=== PATIENT | male | born 1995 | race Caucasian/White ===

== ENCOUNTER 2017-07-11 21:48 | Emergency (ER) | payer OTHER, BC, SELFPAY ==
[2017-07-11 21:50] VITALS: BP 144/78; PULSE 66; RESP 14; TEMP 37.1; O2SAT 97; BMI 21.7
--- NOTE | 2017-07-11 22:40 | NURSING ---
PER [facility] AT [facility] IS A TEST ONLY IFR REQUESTED BY SUPERVISER. TEST NOT NEEDED.
--- NOTE | 2017-07-11 23:14 | RAD_ITS ---
STUDY: X-RAY - LEFT WRIST REASON FOR EXAM: Male, 22 years old. Injury and pain TECHNIQUE: Three view(s) of the LEFT wrist were obtained. COMPARISON: None. FINDINGS: Bones: There are no acute osseous abnormalities. Joints: The visualized joints are unremarkable. Soft tissues: The soft tissues are unremarkable. Foreign body: None RAD/Wrist min 3 Views IMPRESSION: No acute abnormalities are seen in the left wrist. Electronically Signed: Shelby Brown MD at 23:40 EST Tel Direct: [phone], Service support ,
--- NOTE | 2017-07-11 23:16 | ED.DCSUM_ITS ---
- ER Visit Summary Date of Service: 07/11/17 Chief Complaint: Left wrist pain History of Present Illness: The patient is a 22 M presenting with left wrist injury. Patient was at work and smashed his wrist between an engine and machine. This occurred around 11:30 AM. He was able to work the rest of the day. He has been using ice and ibuprofen at home. Complains of persistent pain and swelling. He is right-handed. Physical Examination: Vitals are stable. Patient is afebrile. Alert no acute distress. HEENT exam is unremarkable. Lungs are clear and equal bilaterally. Heart is regular rate and rhythm. Extremities left wrist diffuse tenderness, painful range of motion. Normal pulses and cap refill. Hand and elbow are nontender Skin is warm and dry. No focal neurologic deficit. Remainder of exam is unremarkable. Emergency Department Course and Treatment: Ice pack was applied. X-ray of the left wrist shows no acute process. Velcro wrist splint was applied. Advised to follow-up with [facility]. Advised return to ED for worsening complaints. Disposition: Discharge home Impression: Left wrist contusion This note was generated with [employer] dictation software. It may contain incorrect words, spelling, and punctuation that were not noted in review of the chart prior to signing ED Disposition - Plan for ED Patient: Chief Complaint: Upper Extremity Injury Referrals: NOT,DEFINED [Primary Care Provider] -
--- NOTE | 2017-07-12 00:16 | ED.DEP ---
ED Disposition - Plan for ED Patient: Chief Complaint: Upper Extremity Injury Instructions: ED Contusion Upper Ext Referrals: NOT,DEFINED [Primary Care Provider] - [facility] OF PHYSICIANS] -
[2017-07-12 00:46] VITALS: RESP 18
== END 2017-07-12 00:48 | disposition home or self-care (01) ==
PROVIDERS: Emergency Provider Emergency Medicine
DX: S60.212A Contusion of left wrist, initial encounter (principal); W23.0XXA Caught, crushed, jammed, or pinched between moving objects, initial encounter; Y93.9 Activity, unspecified; Y92.9 Unspecified place or not applicable; Y99.0 Civilian activity done for income or pay
CPT/HCPCS: 73110; 99284

== ENCOUNTER 2017-07-18 08:38 | Emergency (ER) | payer OTHER, SELFPAY ==
[2017-07-18 08:38] VITALS: BP 155/72; PULSE 61; RESP 16; TEMP 36.3; O2SAT 99; BMI 20.7
--- NOTE | 2017-07-18 08:50 | RAD_ITS ---
STUDY: X-RAY - LEFT WRIST REASON FOR EXAM: Male, 22 years old. Left wrist pain following injury. TECHNIQUE: 3 view(s) of the wrist were obtained. COMPARISON: None. FINDINGS: Normal visualized distal radius and ulna. Normal radiocarpal articulation. Normal distal radioulnar articulation. Normal carpal bones. Normal carpal articulations. Normal carpometacarpal articulation of the thumb. Normal second through fifth carpometacarpal articulations. Normal visualized metacarpal bones. The soft tissue structures are unremarkable. RAD/Wrist min 3 Views IMPRESSION: Normal x-ray examination of the wrist. Electronically Signed: Trent Alvarado MD at 9:11 EST Tel [phone], Service support ,
--- NOTE | 2017-07-18 08:51 | ED.VISSUMM ---
- ER Visit Summary Date of Service: 07/18/17 Chief Complaint: Left wrist pain History of Present Illness: The patient is a 22 M presenting with left wrist pain. Patient injured himself at work on July 12. He had a crush injury to his left wrist. He states the swelling has improved. He continues to have persistent pain. He did not follow-up with [facility] and states he was unaware that he needed to do this. He has been taking ibuprofen at home. Denies other complaints. Physical Examination: Vitals are stable. Patient is afebrile. Alert no acute distress. HEENT exam is unremarkable. Lungs are clear and equal bilaterally. Heart is regular rate and rhythm. Extremities tenderness of volar left wrist. No swelling or deformity. No warmth or erythema. Active full range of motion. Normal pulses. Skin is warm and dry. No focal neurologic deficit. Remainder of exam is unremarkable. Emergency Department Course and Treatment: Ice pack was applied. Xray of left wrist shows no acute process. Patient is advised to continue wearing his Velcro wrist splint. He is advised to follow-up with [facility] today. He is given Toradol IM. Advised to continue ibuprofen at home. Advised return ED if worsening complaints. Disposition: Discharged home Impression: Left wrist contusion This note was generated with [employer] dictation software. It may contain incorrect words, spelling, and punctuation that were not noted in review of the chart prior to signing ED Disposition - Plan for ED Patient: Chief Complaint: Upper Extremity Injury Referrals: Care Physician,No Primary [Primary Care Provider] -
--- NOTE | 2017-07-18 09:22 | ED.DEP ---
ED Disposition - Plan for ED Patient: Chief Complaint: Upper Extremity Injury Instructions: ED Contusion Upper Ext Referrals: Care Physician,No Primary [Primary Care Provider] - [facility] [GROUP OF PHYSICIANS] -
[2017-07-18] MEDS: Ketorolac 60 MG/2 ML Vial IM (09:26)
== END 2017-07-18 09:48 | disposition home or self-care (01) ==
LOC: ED 09:12
PROVIDERS: Emergency Provider Emergency Medicine
DX: S60.212A Contusion of left wrist, initial encounter (principal); X58.XXXA Exposure to other specified factors, initial encounter; Y93.9 Activity, unspecified; Y92.9 Unspecified place or not applicable; Y99.0 Civilian activity done for income or pay; Z72.0 Tobacco use
CPT/HCPCS: 73110; 96372; 99282

== ENCOUNTER 2017-09-04 04:12 | Emergency (ER) | payer SELFPAY ==
[2017-09-04 04:13] VITALS: BP 140/72; PULSE 48; RESP 17; TEMP 36.4; O2SAT 100; BMI 22.2
--- NOTE | 2017-09-04 04:56 | ED.DCSUM_ITS ---
- ER Visit Summary Date of Service: 09/04/17 Chief Complaint: Right ear pain History of Present Illness: The patient is a 22 M past medical history. Since Tuesday he has had right ear pain. Denies trauma. Denies swimming. No fever. No sore throat. No other complaints. Physical Examination: Well-appearing young male. Vital signs are stable afebrile. Left ear shows wax. Right the proximal canal appears to have inflammation consistent with an abscess. Neck nontender no lymphadenopathy. Posterior pharynx normal. Lungs clear to auscultation bilaterally. Heart regular rhythm no murmur. Abdomen soft nontender. Moving all 4 extremities. Neurovascularly intact. Neurologic exam normal. Test Results: None Emergency Department Course and Treatment: Let applied to the ear canal abscess. I indeed with a scalpel blade. 1-2 cc of pus and blood from the incision. Packed with about 1-2 inches of quarter inch gauze. Patient tolerated procedure well. He was instructed on wound care. Return if worse. Follow-up with ENT if not resolving. Treatment Plan: I&D of ear canal abscess. Placed on Keflex 500 4 times daily for 10 days. Follow-up with ENT as needed. Disposition: discharge Impression: Right ear canal abscess Incision and drainage by ER This note was generated with [employer] dictation software. It may contain incorrect words, spelling, and punctuation that were not noted in review of the chart prior to signing ED Disposition - Plan for ED Patient: Chief Complaint: Ear Problem Referrals: Care Physician,No Primary [Primary Care Provider] -
[2017-09-04] MEDS: Lidocaine/Epi/Tetracaine 50 ML 1 APPLIC TOPICAL (05:09)
--- NOTE | 2017-09-04 07:10 | ED.DEP ---
ED Disposition - Plan for ED Patient: Disposition: Home or Assisted Living Chief Complaint: Ear Problem Instructions: ED Abscess IandD Prescriptions: Cephalexin [Keflex] 500 mg PO Q6 #30 cap Referrals: Gabriel Monte MD [STAFF PHYSICIAN] - 3-5 Days if not improving Additional Instructions: Tylenol and Motrin for pain. Warm compresses to right ear to help the abscess drain and warm shower. Next Pull the packing material in 3-5 days but may fall out before that. Keflex antibiotic 1 pill 4 times a day till gone. Call follow-up with Dr. Monte the ureters and throat doctor if this is not improving.
[2017-09-04 07:22] VITALS: BP 128/77; PULSE 51; RESP 16; O2SAT 99
[2017-09-04] MEDS: Cephalexin 250 MG Capsule 500 MG PO (07:22)
== END 2017-09-04 07:29 | disposition home or self-care (01) ==
PROVIDERS: Emergency Provider Emergency Medicine
DX: H66.41 Suppurative otitis media, unspecified, right ear (principal)
CPT/HCPCS: 69000; 99283

== ENCOUNTER 2017-12-02 22:08 | Emergency (ER) | payer SELFPAY ==
[2017-12-02 22:09] VITALS: BP 118/90; PULSE 79; RESP 18; TEMP 37.1; O2SAT 98; BMI 20.6
--- NOTE | 2017-12-02 22:13 | RAD_ITS ---
STUDY: X-RAY - LEFT HAND REASON FOR EXAM: Male, 22 years old. Trauma TECHNIQUE: 3 view(s) of the hand. COMPARISON: None. FINDINGS: Normal radiocarpal articulation. Normal distal radioulnar joint. Normal visualized carpal bones. Normal carpal articulations Normal carpometacarpal articulation of the thumb. Normal second through fifth carpometacarpal joints. Normal metacarpi. Normal metacarpophalangeal joint of the thumb. Normal interphalangeal joint of the thumb. Normal proximal and distal phalanges of the thumb. Normal metacarpophalangeal joints of the second through fifth fingers. Normal proximal and distal interphalangeal joints of the second through fifth fingers. Normal phalanges of the second through fifth fingers. The soft tissue structures are unremarkable. RAD/Hand Min 3 Views IMPRESSION: Normal x-ray examination of the hand. Electronically Signed: True Leggett MD at 22:57 EDT , Service support ,
--- NOTE | 2017-12-02 22:44 | ED.VISSUMM ---
- ER Visit Summary Date of Service: 12/02/17 Chief Complaint: Left hand injury History of Present Illness: The patient is a 22 M [id number]. Patient was getting out of a tree earlier today for a friend. He cut his hand caught between the following limb and the bucket because he was up in the air. Came in to have it evaluated. No prior history of surgery the left hand. He denies any other injuries. Physical Examination: Well-appearing male no acute distress. Vital signs are stable afebrile. H EENT exam unremarkable. Lungs clear to auscultation. Heart regular rate and rhythm. Chest nontender. Abdomen soft nontender. Extremities moving all 4 neurovascularly intact. The dorsum of the left hand about the wrist and distal forearm has an abrasion and contusion. There is mild swelling. No need for any surgical repair. His left hand is neurovascular intact with full flexion-extension.. Normal cap refill and tight sensation. No gross bony deformity. He has full flexion-extension ulnar radial deviation of the wrist. There is no deformity of the forearm. Elbow and shoulder are unremarkable. He is a strong radial pulse. There are no foreign bodies noted. Test Results: X-ray of the left hand was obtained and wrist. 3 views shows no acute abnormality. No fracture no dislocation. I went over the films with the patient. Emergency Department Course and Treatment: Clean and dress the wound. Motrin for pain. Treatment Plan: Ice and elevate. Motrin for pain and inflammation. Wound care. Follow-up if not improving in 1 week for reevaluation. Disposition: Discharge Impression: Acute left wrist and hand abrasion and contusion This note was generated with [employer] dictation software. It may contain incorrect words, spelling, and punctuation that were not noted in review of the chart prior to signing ED Disposition - Plan for ED Patient: Chief Complaint: Upper Extremity Injury Referrals: Care Physician,No Primary [Primary Care Provider] -
--- NOTE | 2017-12-02 22:47 | ED.DCSUM_ITS ---
- ER Visit Summary Date of Service: 12/02/17 Chief Complaint: Left hand injury History of Present Illness: The patient is a 22 M [id number]. Patient was getting out of a tree earlier today for a friend. He cut his hand caught between the following limb and the bucket because he was up in the air. Came in to have it evaluated. No prior history of surgery the left hand. He denies any other injuries. Physical Examination: Well-appearing male no acute distress. Vital signs are stable afebrile. H EENT exam unremarkable. Lungs clear to auscultation. Heart regular rate and rhythm. Chest nontender. Abdomen soft nontender. Extremities moving all 4 neurovascularly intact. The dorsum of the left hand about the wrist and distal forearm has an abrasion and contusion. There is mild swelling. No need for any surgical repair. His left hand is neurovascular intact with full flexion-extension.. Normal cap refill and tight sensation. No gross bony deformity. He has full flexion-extension ulnar radial deviation of the wrist. There is no deformity of the forearm. Elbow and shoulder are unremarkable. He is a strong radial pulse. There are no foreign bodies noted. Test Results: X-ray of the left hand was obtained and wrist. 3 views shows no acute abnormality. No fracture no dislocation. I went over the films with the patient. Emergency Department Course and Treatment: Clean and dress the wound. Motrin for pain. Treatment Plan: Ice and elevate. Motrin for pain and inflammation. Wound care. Follow-up if not improving in 1 week for reevaluation. Disposition: Discharge Impression: Acute left wrist and hand abrasion and contusion This note was generated with [employer] dictation software. It may contain incorrect words, spelling, and punctuation that were not noted in review of the chart prior to signing ED Disposition - Plan for ED Patient: Chief Complaint: Upper Extremity Injury Referrals: Care Physician,No Primary [Primary Care Provider] -
--- NOTE | 2017-12-02 22:47 | ED.DEP ---
ED Disposition - Plan for ED Patient: Disposition: Home or Assisted Living Chief Complaint: Upper Extremity Injury Instructions: ED Contusion Upper Ext Referrals: Ramo Ochoa MD [STAFF PHYSICIAN] - 10-14 Days if not better Additional Instructions: Importance clean. Apply antibiotic ointment daily. Ice and elevate. Motrin for pain and swelling. If not improving 1-2 weeks need to be reevaluated but tonight on your x-rays there are no signs of any broken bones or dislocations. This should progressively improve.
[2017-12-02 22:56] VITALS: RESP 16
--- NOTE | 2017-12-02 22:57 | ED.RN ---
REVIEWED D/C INSTRUCTIONS, FOLLOW UP CARE, AND S/S THAT WOULD WARRANT A RETURN TO THE ED WITH PT. PT VERBALIZED AN UNDERSTANDING AND DENIES FURTHER QUESTIONS FOR THIS RN. PT SKIN P/W/D, RESP EVEN AND UNLABORED, PT A&O X 3, NO DISTRESS NOTED. PT AMBULATED OUT OF ED, GAIT STEADY.
== END 2017-12-02 22:58 | disposition home or self-care (01) ==
PROVIDERS: Emergency Provider Emergency Medicine
DX: S60.812A Abrasion of left wrist, initial encounter (principal); S60.512A Abrasion of left hand, initial encounter; S60.212A Contusion of left wrist, initial encounter; S60.222A Contusion of left hand, initial encounter; W23.0XXA Caught, crushed, jammed, or pinched between moving objects, initial encounter; Y93.9 Activity, unspecified; Y92.9 Unspecified place or not applicable
CPT/HCPCS: 73130; 99282

== ENCOUNTER 2017-12-04 10:44 | Emergency (ER) | payer SELFPAY ==
[2017-12-04 10:44] VITALS: BP 126/71; PULSE 74; RESP 16; TEMP 36.1; O2SAT 98; BMI 20.3
--- NOTE | 2017-12-04 10:57 | ED.DCSUM_ITS ---
- ER Visit Summary Date of Service: 12/04/17 Chief Complaint: Poison gina History of Present Illness: The patient is a 22 M who was cutting down a tree 3 days ago and now has a rash consistent with poison gina. He states he has had this before. Physical Examination: Patient has a rash on his torso arms and face consistent with rhus dermatitis Emergency Department Course and Treatment: Patient will be started on prednisone tapering dose over 12 days. Impression: 1. Rhus dermatitis This note was generated with [employer] dictation software. It may contain incorrect words, spelling, and punctuation that were not noted in review of the chart prior to signing ED Disposition - Plan for ED Patient: Disposition: Home or Assisted Living Chief Complaint: Rash Instructions: ED Dermatitis Poison Gina Prescriptions: Prednisone [Deltasone] 60 mg PO DAILY #24 tab Referrals: Ulises Briones III, MD [STAFF PHYSICIAN] - As Needed
== END 2017-12-04 11:08 | disposition home or self-care (01) ==
LOC: ED 11:04
PROVIDERS: Emergency Provider Emergency Medicine
DX: L23.7 Allergic contact dermatitis due to plants, except food (principal)
CPT/HCPCS: 99282

== ENCOUNTER 2021-02-08 21:55 | Emergency (ER) | payer BC, SELFPAY ==
[2021-02-08 21:56] VITALS: BP 131/76; PULSE 77; RESP 18; TEMP 36.2; O2SAT 99; BMI 20.6
[2021-02-08] MEDS: Diphth,Pertuss(Acell),Tet Vac 0.5 ML Vial IM (22:47)
--- NOTE | 2021-02-08 22:50 | EX.ED.UPPERE ---
HPI History of Present Illness Chief Complaint: Laceration Informant: patient Narrative Narrative: 26-year-old male was using a chain saw to cut a tree down today when he sustained a laceration to the medial aspect of the proximal left forearm. Unknown last tetanus. States he washed it off with a dressing on continue to work. When he got his second job today his boss advised him to please go get this looked at. Tetanus Immunization: Unknown PFSH PFSH no medical history Home Medications prednisone 60 mg PO DAILY #24 tab 12/04/17 [Rx Last Taken Unknown] Allergy/AdvReac Type Severity Reaction Status Date / Time No Known Allergies Allergy Verified 12/04/17 10:50 no surgical history Social History (Updated 02/08/21 @ 22:[address] Carlitos Caruso, DO) Smoking Status: Never smoker substance use type: does not use ROS ROS ED Constitutional Constitutional ED: Denies chills or weight loss Eyes Eyes: Denies change in vision or diplopia ENT ENT ED: Denies ear pain, rhinorrhea or sore throat Cardiovascular Cardiovascular: Denies chest pain, orthopnea, palpitations or racing heartbeat Respiratory/Chest Respiratory/Chest: Denies cough, dyspnea or orthopnea Gastrointestinal Gastrointestinal: Denies abdominal pain, diarrhea, nausea or vomiting Genitourinary Genitourinary ED: Denies dysuria, hematuria or urinary frequency Musculoskeletal Musculoskeletal: Denies arthralgias or myalgias Integumentary Reports other Details: See HPI ; Denies abscess or rash Neurologic Neurologic: Denies headache(s) or weakness Psychiatric Psychiatric: Denies anxiety, depression, suicidal ideation or suicidal thoughts Endocrine Endocrinology: Denies polydipsia, polyphagia or polyuria Allergic/Immunologic Allergic/Immunologic ED: Denies mouth swelling, tongue swelling or urticaria EXAM Physical Exam Const Vital Signs: 02/08/21 21:56 Temperature 97.2 F L Temperature Source Temporal Pulse Rate 77 Respiratory Rate 18 Blood Pressure 131/76 H Blood Pressure Mean 94 Pulse Ox 99 Positive well nourished and well developed General Appearance ED: well developed HEENT Reports normocephalic, head/scalp atraumatic and moist mucous membranes Eyes PERRL and EOMs intact bilaterally Neck no lymphadenopathy, supple and no JVD Resp normal respiratory effort and clear to auscultation bilaterally Cardio regular rate, regular rhythm and no murmurs GI normal to inspection, nondistended, normoactive bowel sounds and non-tender Palpation: soft Back/Spine no CVA tenderness and normal ROM Extremity full ROM General Extremety ED: Negative for edema General Extremity: Negative for edema Neuro oriented x3 and CN's II-XII intact bilaterally Sensorium / Orientation: alert Motor Exam: strength 5/5 throughout Psych mental status grossly normal Mood & Affect: Negative for depressed or tearful Skin no rashes or lesions noted and no wounds Skin Narrative: Over the medial aspect of the proximal left forearm is a 3 cm gaping laceration. Just distal to this are about 5 superficial linear abrasions. Wound is fairly clean. Neurovascular intact distal MDM MDM MDM Narrative Medical decision making narrative: The wound was locally anesthetized using 1% lidocaine washed with Shur-Clens and explored. Wound edges were revised. Wound was closed using 5 simple interrupted 3-0 Ethilon sutures. Tetanus was updated with Adacel. Wound was dressed wound care discussed with patient return if worsening or concerns Discharge Plan Triage Chief Complaint: Laceration ED Provider: Carlitos Caruso Dx/Rx/DC Orders Clinical Impression: Laceration of left forearm Instructions: ED Laceration: All Closures Prescriptions: No Action prednisone 20 MG tablet 60 mg PO DAILY Qty: 24 RF: 0 Primary Care Provider: Care Physician,No Primary Referrals: Care Physician,No Primary [Primary Care Provider] - [facility] [NON-STAFF] - 10 Day for suture removal Disposition Disposition: Home, Self Care
[2021-02-08] MEDS: Lidocaine 1% (20 ml mdv) 20 ML Vial INFILT (22:51)
== END 2021-02-08 23:18 | disposition home or self-care (01) ==
LOC: ED 23:08
PROVIDERS: Emergency Provider Emergency Medicine
DX: S51.812A Laceration without foreign body of left forearm, initial encounter (principal); W29.3XXA Contact with powered garden and outdoor hand tools and machinery, initial encounter; Y93.9 Activity, unspecified; Y92.9 Unspecified place or not applicable
CPT/HCPCS: 12002; 90715; 99285

== ENCOUNTER 2022-08-04 14:29 | Emergency (ER) | payer BC, SELFPAY ==
[2022-08-04 14:30] VITALS: BP 125/83; PULSE 57; RESP 16; TEMP 36.1; O2SAT 100; BMI 21.5
[2022-08-04 18:00] VITALS: BP 128/73; PULSE 48; RESP 16; O2SAT 99
[2022-08-04 18:01] VITALS: BP 117/63; BP 124/72; BP 126/77; PULSE 52; PULSE 59; PULSE 62
--- NOTE | 2022-08-04 18:05 | NURSING ---
NO OLD EKGS
[2022-08-04 18:14] LABS: Absolute Lymphocyte Count 1.82 X10^3/uL (0.83-4.51); Absolute Neutrophil Count 3.8 X10^3/uL (2.0-7.7); Basophil# 0.03 X10^3/uL; Basophil% 0.5 % (0-1); Eosinophil# 0.05 X10^3/uL; Eosinophils% 0.8 % (0-5); Hematocrit 46.5 % (40-54); Hemoglobin 15.3 g/dL (13.0-16.5); Lymphocyte # 1.82 X10^3/ul (0.83-4.51); Lymphocyte % 29.8 % (19-41); Mean Corp Hgb Conc 32.9 g/dL (32-36); Mean Corpuscular Hgb 30.4 pg (27.0-32.0); Mean Corpuscular Volume 92.4 fL (80-94); Monocyte# 0.44 X10^3/uL; Monocyte% 7.2 % (0-10); NRBC Flagged by Analyzer 0 % (0-5); Neutrophil # 3.75 X10^3/uL (2.7-7.7); Neutrophil % 61.5 % (47-70); Platelet Count 310 K/mm3 (150-450); RBC Distribution Width CV 12.3 % (11.6-14.6); RBC Distribution Width SD 41.6 fl (35.1-43.9); Red Blood Count 5.03 M/mm3 (4.6-6.2); White Blood Count 6.1 K/mm3 (4.4-11.0)
--- NOTE | 2022-08-04 18:18 | CT_ITS ---
STUDY: CT BRAIN WITHOUT CONTRAST REASON FOR EXAM: Male, 27 years old. Headache RADIATION DOSAGE (If Supplied By Facility): CTDIvol = ( 44.99 ) mGy, DLP = ( 796.11 ) mGycm TECHNIQUE: Transaxial CT imaging of the brain was performed without administration of intravenous contrast material. Individualized dose optimization techniques were used for this CT. COMPARISON: No relevant priors. FINDINGS: Normal soft tissue structures. Normal calvarium. Normal size ventricles and extra-axial spaces for the patient''s age. Normal white matter tracts of the cerebral hemispheres. Normal basal ganglia and thalami. Normal brainstem. Normal cerebellum. There is no intracranial hemorrhage. There are no findings of an acute ischemic infarction. Normal visualized paranasal sinuses. CT/Brain/Head without Contrast IMPRESSION: Normal unenhanced CT scan of the brain. Electronically Signed: True Leggett MD at 18:30 EDT ,
--- NOTE | 2022-08-04 18:25 | RAD_ITS ---
STUDY: X-RAY CHEST REASON FOR EXAM: Male, 27 years old. Cough TECHNIQUE: PA and lateral views of the chest. COMPARISON: None. FINDINGS: The lungs are clear and expanded. There is no demonstrated pleural abnormality. Normal size heart. Normal mediastinum and danial. Normal visualized pulmonary arteries. Normal visualized aortic arch and descending thoracic aorta. Normal visualized thoracic spine. Normal visualized ribs, clavicles, and shoulders. There is no demonstrated abnormality of the visualized soft tissue structures of the upper abdomen. RAD/Chest PA and Lateral IMPRESSION: Normal x-ray examination of the chest. Electronically Signed: True Leggett MD at 18:49 EDT ,
[2022-08-04 18:31] LABS: D-Dimer Quantitative (DVT/PE) < 0.27 FEU/ug/m (0.27-0.49)
--- NOTE | 2022-08-04 18:32 | EX.ED.DYSGE1 ---
HPI History of Present Illness Chief Complaint: Dizziness Informant: patient Onset/Context/Timing Onset: Yesterday Context: Gradual Onset Timing: Intermittent Quality: Lightheaded Location: Generalized Worsened by: Nothing Relieved by: Nothing Narrative Narrative: Presents with headache, dizziness, and near syncopal episode that occurred today. Patient states she started getting a headache yesterday. Patient states today when he was getting ready for work he felt dizzy. Patient states that while he was at work today he felt like he was going to pass out. Patient states his vision went black but he did not lose consciousness. Patient states he was able to sit down. Patient states he felt lightheaded prior to this. Patient states it has been waxing and waning. Patient states his headache is over the frontal area. Patient describes it as sharp. Patient states nothing makes his symptoms better nothing makes them worse. PFSH [facility] Medical History Heart block Irregular heart beat Home Medications NK 02/08/21 [History Last Taken Unknown] Allergy/AdvReac Type Severity Reaction Status Date / Time No Known Allergies Allergy Verified 08/04/22 17:25 Social History Smoking Status: Never smoker substance use type: does not use ROS ROS ED Constitutional Constitutional ED: Denies chills or fever(s) Eyes Eyes: Denies blurry vision or change in vision ENT ENT ED: Denies rhinorrhea or sore throat Cardiovascular Cardiovascular: Denies chest pain or palpitations Respiratory/Chest Respiratory/Chest: Reports cough; Denies dyspnea Gastrointestinal Gastrointestinal: Denies nausea or vomiting Genitourinary Genitourinary ED: Denies dysuria or hematuria Musculoskeletal Musculoskeletal: Denies back pain or neck pain Integumentary Denies abscess or rash Neurologic Neurologic: Reports headache(s); Denies weakness Allergic/Immunologic Allergic/Immunologic ED: Denies mouth swelling or urticaria EXAM Physical Exam Const Vital Signs: 08/04/22 14:30 08/04/22 16:30 08/04/22 18:00 Temperature 97 F L Temperature Source Temporal Pulse Rate 57 L 48 L Pulse Rate [Lying] Pulse Rate [Sitting (for 1 minute prior to obtaining)] Pulse Rate [Standing (for 1 minute prior to obtaining)] Respiratory Rate 16 16 Respiratory Effort Normal Non-Labored Respiratory Pattern Normal Blood Pressure 125/83 H 128/73 H Blood Pressure [Lying] Blood Pressure [Sitting (for 1 minute prior to obtaining)] Blood Pressure [Standing (for 1 minute prior to obtaining)] Blood Pressure Mean 97 91 Blood Pressure Mean [Lying] Blood Pressure Mean [Sitting (for 1 minute prior to obtaining)] Blood Pressure Mean [Standing (for 1 minute prior to obtaining)] Pulse Ox 100 99 Oxygen Delivery Method Room Air Room Air 08/04/22 18:01 Temperature Temperature Source Pulse Rate Pulse Rate [Lying] 59 L Pulse Rate [Sitting (for 1 minute prior to obtaining)] 52 L Pulse Rate [Standing (for 1 minute prior to obtaining)] 62 Respiratory Rate Respiratory Effort Respiratory Pattern Blood Pressure Blood Pressure [Lying] 117/63 Blood Pressure [Sitting (for 1 minute prior to obtaining)] 124/72 H Blood Pressure [Standing (for 1 minute prior to obtaining)] 126/77 H Blood Pressure Mean Blood Pressure Mean [Lying] 81 Blood Pressure Mean [Sitting (for 1 minute prior to obtaining)] 89 Blood Pressure Mean [Standing (for 1 minute prior to obtaining)] 93 Pulse Ox Oxygen Delivery Method Positive well nourished and well developed General Appearance ED: well developed and NAD HEENT Reports moist mucous membranes Neck supple and no JVD Resp normal respiratory effort and clear to auscultation bilaterally Cardio regular rate, regular rhythm and no murmurs GI normal to inspection, nondistended, normoactive bowel sounds and non-tender Palpation: soft Extremity normal to inspection General Extremety ED: Negative for edema or tenderness General Extremity: Negative for edema Neuro oriented x3, CN's II-XII intact bilaterally and no sensory deficits noted Sensorium / Orientation: alert Motor Exam: strength 5/5 throughout Psych mental status grossly normal Skin no rashes or lesions noted MDM MDM MDM Narrative Medical decision making narrative: Differential diagnosis includes anemia, vasovagal syncope, cardiac dysrhythmia, cardiac ischemia, pulmonary embolism, viral illness, and electrolyte abnormality. EKG will be obtained to assess for cardiac dysrhythmia and cardiac ischemia. CBC will be obtained to assess for leukocytosis and anemia. Chest x-ray will be obtained to assess for pneumonia and pneumothorax. Basic metabolic profile will be obtained to assess for electrolyte abnormality and renal function. D-dimer will be obtained to assess for pulmonary embolism. High-sensitivity troponin will be obtained to assess for cardiac ischemia. 2-hour repeat high-sensitivity troponin will be obtained to assess for ongoing cardiac ischemia. CT scan of the brain will be obtained to assess for stroke and intracranial bleeding. Lab Data Attestation: I reviewed the patient's lab results. Lab results narrative: BC was reviewed and was within normal limits. Basic metabolic profile was reviewed and was within normal limits. D-dimer was reviewed and was less than 0.27. High-sensitivity troponin was reviewed and was less than 4. 2-hour repeat high-sensitivity troponin was reviewed and was 3. Labs: Laboratory Results - last 24 hr 08/04/22 08/04/22 08/04/22 17:23 17:23 17:23 WBC 6.1 RBC 5.03 Hgb 15.3 Hct 46.5 MCV 92.4 MCH 30.4 MCHC 32.9 RDW Std Deviation 41.6 RDW Coeff of [place] 12.3 Plt Count 310 MPV 10.0 Immature Gran % (Auto) 0.200 Neut % (Auto) 61.5 Lymph % (Auto) 29.8 [place] % (Auto) 7.2 Eos % (Auto) 0.8 Baso % (Auto) 0.5 Absolute Neuts (auto) 3.8 Absolute Lymphs (auto) 1.82 Nucleated RBC % 0 D-Dimer Quant (PE/DVT) < 0.27 L Sodium 141 Potassium 4.1 Chloride 106 Carbon Dioxide 31.0 Anion Gap 4 L BUN 14 Creatinine 0.96 Estim Creat Clear Calc 124.58 Est GFR (MDRD) Af Amer 120 Est GFR (MDRD) Non-Af 99 BUN/Creatinine Ratio 14.5 Glucose 84 Calcium 9.7 Troponin I High Sens 4 08/04/22 20:40 WBC RBC Hgb Hct MCV MCH MCHC RDW Std Deviation RDW Coeff of [place] Plt Count MPV Immature Gran % (Auto) Neut % (Auto) Lymph % (Auto) [place] % (Auto) Eos % (Auto) Baso % (Auto) Absolute Neuts (auto) Absolute Lymphs (auto) Nucleated RBC % D-Dimer Quant (PE/DVT) Sodium Potassium Chloride Carbon Dioxide Anion Gap BUN Creatinine Estim Creat Clear Calc Est GFR (MDRD) Af Amer Est GFR (MDRD) Non-Af BUN/Creatinine Ratio Glucose Calcium Troponin I High Sens 3 Radiography Diagnostic Testing: Clinical Impression(s) from Imaging Studies Brain CT 08/04/22 18:18 IMPRESSION: Normal unenhanced CT scan of the brain. Electronically Signed: True Leggett MD at 18:30 EDT , Chest X-Ray 08/04/22 18:25 IMPRESSION: Normal x-ray examination of the chest. Electronically Signed: True Leggett MD at 18:49 EDT , CT scan of the brain was obtained. There is no acute intracranial abnormality. This was interpreted by the radiologist and was also independently reviewed by myself. PA and lateral chest x-ray was obtained. There are 2 views. On my independent interpretation, lung dubon are clear. There is normal cardiac silhouette. Bony thorax is normal. There is no acute process noted. Radiologist also interpreted the x-ray and agrees. EKG Initial EKG: Attestation: I personally reviewed and interpreted this EKG as follows: Interpretation: Sinus Bradycardia (51) and RBBB (Incomplete) Comments: EKG was obtained. On my independent interpretation, it showed a sinus bradycardia with a rate of 51. [place] interval, QRS interval, and QTc intervals were all normal. [place] was 101. There are no acute ST or T wave changes. Prior EKG tracings: not available for review Prior: No Prior Treatment and Re-Evaluation :: Patient was given IV fluids. Orthostatic vital signs were reviewed and were negative. Patient was advised of his findings. Patient was instructed to follow-up with his primary care physician in 5 to 7 days. Patient was instructed return if worse in any way. Patient understood and was agreeable with the plan. All questions were answered. Discharge Plan Triage Chief Complaint: Dizziness ED Provider: Gabriel Johnson Dx/Rx/DC Orders Clinical Impression: Near syncope, Headache Instructions: ED Near-Fainting, Uncertain Cause Prescriptions: No Action NK Stand Alone Forms: ED Work / School Excuse Primary Care Provider: Care Physician,No Primary Referrals: Griselda Miller MD [Med Staff - Parking Lot Attendant] - 5-7 Days Care Physician,No Primary [Primary Care Provider] - Disposition Disposition: Home, Self Care
[2022-08-04 18:37] LABS: Anion Gap 4 (5-15); BUN 14 mg/dL (7-18); BUN/Creat Ratio 14.5 RATIO (10-20); Calcium,Total 9.7 mg/dL (8.5-10.1); Chloride 106 mmol/L (98-107); Creatinine, Serum 0.96 mg/dL (0.70-1.30); EST Glomerular Filtration Rate 99 mL/min (>60); Est Glom Filt Rate - Afr Amer 120 mL/min (>60); Estimated Creatinine Clearance 124.58 ml/min; Glucose 84 mg/dL (74-106); Potassium 4.1 mmol/L (3.5-5.1); Sodium Level 141 mmol/L (136-145); Troponin-I HS (w/2H Reflex) 4 pg/mL (3.0-78.0)
[2022-08-04] MEDS: 0.9% Normal Saline 1,000 ML 1000 ML IV (18:39)
[2022-08-04 20:11] LABS: Reflex Troponin-HS? (from REC) Y
[2022-08-04 21:10] LABS: Troponin-I HS 3 pg/mL (3.0-78.0)
[2022-08-04 22:05] VITALS: BP 121/74; PULSE 55; RESP 18; O2SAT 99
[2022-08-04 22:17] VITALS: BP 121/68; PULSE 57; RESP 18; O2SAT 100
== END 2022-08-04 22:18 | disposition home or self-care (01) ==
PROVIDERS: Emergency Provider Emergency Medicine; Visit Provider Emergency Medicine
DX: R42 Dizziness and giddiness (principal); R55 Syncope and collapse; R51.9 Headache, unspecified
CPT/HCPCS: 70450; 71046; 80048; 84484; 85025; 85379; 93005; 96360; 96361; 99285; J7030; A4216

== ENCOUNTER 2023-07-10 16:33 | Emergency (ER) | payer BC, SELFPAY ==
[2023-07-10 16:34] VITALS: BP 148/90; PULSE 63; RESP 14; TEMP 36.4; O2SAT 100; BMI 23.6
--- NOTE | 2023-07-10 16:44 | EX.ED.UPPERE ---
HPI History of Present Illness Chief Complaint: Upper Extremity Injury Narrative Narrative: 28-year-old male who denies significant past medical history presents with injury to his right fifth digit that he sustained yesterday evening. 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 He went down to reach for a ball and bring it in, when another player kicked his right finger, fifth digit. He states that it was bent outward and dislocated, and he corrected it himself. The area was sore yesterday, but when he awoke this morning he noticed increased swelling and that his finger was turning different colors diffusely. He is now unable to bend or extend his finger. He denies other injury. He is right-hand dominant. He has been icing the area as well. [facility] Medical History Heart block Irregular heart beat Home Medications NK 02/08/21 [History Last Taken Unknown] Allergy/AdvReac Type Severity Reaction Status Date / Time No Known Allergies Allergy Verified 07/10/23 16:35 Social History Smoking Status: Never smoker substance use type: does not use ROS ROS ED ROS Narrative Constitutional: No fever, no chills. HEENT: No sore throat. No neck pain. No loss of vision. No rhinorrhea. Cardiovascular: No chest pain. No palpitations. No pedal edema. Respiratory: No cough, no shortness of breath. Abdominal: No abdominal pain. No nausea. No vomiting. Genitourinary: No dysuria. No hematuria. Musculoskeletal: No myalgias. Inability to flex or extend right fifth digit, positive swelling. Positive tenderness. Neurologic: No headaches. No dizziness. No lightheadedness. Skin: No rash. Positive ecchymosis to right fifth digit. Psychiatric: No depression. No anxiety. EXAM Physical Exam Narrative Exam Narrative: Afebrile. Vital signs noted. HEENT: Normocephalic. Atraumatic. PERRL, EOMI. Neck soft and supple. No point tenderness or step off. Cardiovascular: Regular rate and rhythm. No murmurs, rubs, or gallops appreciated. Respiratory: No tachypnea. Lungs clear to auscultation bilaterally. Gastrointestinal: Abdomen soft, nontender, with normoactive bowel sounds. No rebound or guarding. Neurological: Awake. Alert. Nonfocal, nonlateralizing. Skin: No rash. Normal color. No pallor. Musculoskeletal: No pedal edema. Decreased range of motion fifth digit on right hand. Good capillary refill distally. Positive swelling and ecchymosis. Tenderness diffusely but especially at PIP joint. Const Vital Signs: 07/10/23 16:34 Temperature 97.6 F L Temperature Source Temporal Pulse Rate 63 Respiratory Rate 14 Blood Pressure 148/90 H Blood Pressure Mean 109 Pulse Ox 100 Oxygen Delivery Method Room Air MDM MDM MDM Narrative Medical decision making narrative: Concern is for fracture of fifth digit along with dislocation with incomplete relocation. He may have torn tendons as well. He declined any analgesics here in the emergency department. X-rays were obtained of the fifth digit in 3 views. On my individual interpretation there is a subtle fracture at the PIP joint on the volar aspect of the proximal phalanx. I reviewed the radiology report which comments on a volar plate fracture. At this point in time, I discussed patient with Dr. Perez with orthopedics who agrees with aluminum foam splint, and follow-up with hand surgery. He was referred to 2 different hand surgeons in the [place] area for follow-up within a week. I offered to write him for stronger pain medications but he declined and would like to take [id number] analgesics. He will continue ice and elevation at home. I feel he can be discharged to follow-up. Return instructions to the emergency department were reviewed. Disposition is discharged home in stable condition. Management Discussion w/another healthcare provider: [employer] (Dr. Perez, Orthopaedics) Discharge Plan Triage Chief Complaint: Upper Extremity Injury ED Provider: Pio Erickson Dx/Rx/DC Orders Clinical Impression: Dislocation, finger, Fracture of finger of right hand Instructions: ED Fracture, Finger, Closed Prescriptions: No Action NK Primary Care Provider: Care Physician,No Primary Referrals: JANET QUINTANILLA MD [Non-Staff] - 1 Week Princess Colón MD [Non-Staff] - 1 Week Care Physician,No Primary [Primary Care Provider] - Activity Restrictions/Additional Instructions: Follow-up with a hand surgeon in approximately 1 week. You can take [id number] medications as needed for pain. Disposition Disposition: Home, Self Care
--- OUTSIDE RECORDS SUMMARY | 2023-07-10 16:53 | XMS RPT_ITS | CCD ---
Author Name Unknown Address [address] [place] [address] Organization [facility] Care Team Providers Care Environmental Remediation Consultant Name Role Phone Unavailable Primary Care Provider Unavailbe Vo CHAIRMAN EMERITUS.Estefanía STOKES Primary Care Provider GILDA ESTEFANÍA A Primary Care Unavailable EDWINA LYLE Unavailable QUEDEN, ESTEFANÍA A Primary Care Unavailable QUEDEN ESTEFANÍA A Primary Care Unavailable GILDA ESTEFANÍA A Attending Unavailable QUEAVINASH ESTEFANÍA A Primary Care Unavailable Medications Current Medications Medication Drug Class(es) Dates Sig (Normalized) Sig (Original) perflutren lipid microspheres 1.3 mL in NaCl (PF) 0.9% 10 mL injection (DEFINITY) (2 sources) Start: 10-14-2022 End: 01-13-2023 perflutren lipid microspheres 1.3 mL in NaCl (PF) 0.9% 10 mL injection (DEFINITY) 125 ml sodium chloride 9 mg/ml prefilled syringe (2 sources) Start: 10-14-2022 End: 01-13-2023 sodium chloride 0.9 % (flush) 10 mL (BD POSIFLUSH) Completed/Discontinued Medications Medication Drug Class(es) Dates Sig (Normalized) Sig (Original) benzonatate 100 mg oral capsule (2 sources) Non-narcotic Antitussive Start: 06-10-2021 End: 10-14-2022 benzonatate (TESSALON PERLE) 100 mg capsule Take 1-2 capsules tid prn, no more than 6 in 24 hours. 30 capsule 0 06/10/2021 10/14/2022 Discontinued Problems Active Problems Problem Classification Problem Date Documented Date Episodic/Chronic Conduction disorders (11 sources) First degree atrioventricular block; Translations: [Atrioventricular block, first degree] Onset: 12-29-2009 12-29-2009 Chronic E Codes: Fall (1 source) Fall on same level from slipping, tripping or stumbling ; Translations: [Fall on same level from slipping, tripping and stumbling without subsequent striking against object, initial encounter] 02-01-2023 Episodic Other congenital anomalies (4 sources) Congenital pes planus; Translations: [Congenital pes planus, unspecified foot] Onset: 04-18-2008 04-18-2008 Chronic Other non-traumatic joint disorders (1 source) Pain of right wrist; Translations: [Pain in right wrist] 02-01-2023 Episodic Other non-traumatic joint disorders (1 source) Pain in right wrist; Translations: [Wrist pain, right] Onset: 02-01-2023 Episodic Past or Other Problems Problem Classification Problem Date Documented Da te Episodic/Chronic Acquired foot deformities (4 sources) Acquired equinus deformity of foot; Translations: [Other acquired deformities of unspecified foot] Onset: 04-18-2008 04-18-2008 Episodic Conditions associated with dizziness or vertigo (3 sources) Dizziness and giddiness; Translations: [Dizziness and giddiness] Onset: 08-10-2022 10-14-2022 Episodic Other skin disorders (4 sources) Acne; Translations: [Acne, unspecified] Onset: 10-19-2011 10-19-2011 Episodic Syncope (9 sources) Near syncope; Translations: [Syncope and collapse] Onset: 09-29-2016 Episodic Results Test Name Value Interpretation Reference Range Facil ity Vital Signs Date Time Vital Sign Value Performing Clinician Nickolas [email or web address] 02-01-2023 11:37-0400 Body temperature 97.39 [degF] Edwina Lyle APRN.CNP Work Phone: [facility] 02-01-2023 11:37-0400 Body weight 81.28 kg Edwina Lyle APRN.CNP Work Phone: [facility] 02-01-2023 11:37-0400 Diastolic blood pressure 74 mm[Hg] Edwina Lyle APRN.CNP Work Phone: [facility] 02-01-2023 11:37-0400 Heart rate 67 /min Edwina Lyle CHAIRMAN EMERITUS.BOATSWAINS MATE Work Phone: [facility] 02-01-2023 11:37-0400 Respiratory rate 18 /min Edwina Lyle CHAIRMAN EMERITUS.[employer]ATSWAINS MATE Work Phone: [facility] 02-01-2023 11:37-0400 SaO2% (BldA) [Mass fraction] 97 % Edwina Lyle CHAIRMAN EMERITUS.[employer]ATSWAINS MATE Work Phone: [facility] 02-01-2023 11:37-0400 Systolic blood pressure 138 mm[Hg] Edwina Lyle CHAIRMAN EMERITUS.[employer]ATSWA[employer] MATE Work Phone: [facility] 10-14-2022 09:42-0400 Body height 188 cm Estefanía Queden CHAIRMAN EMERITUS.[employer]ATSWAINS MATE Work Phone: [facility] 10-14-2022 09:42-0400 Body temperature 97.7 [degF] Estefanía Queden CHAIRMAN EMERITUS.[employer]WA[employer] MATE Work Phone: [facility] 10-14-2022 09:42-0400 Body weight 84.37 kg Estefanía Queden CHAIRMAN EMERITUS.[employer]WA[employer] MATE Work Phone: [facility] 10-14-2022 09:42-0400 Diastolic blood pressure 60 mm[Hg] Estefanía Queden CHAIRMAN EMERITUS.[employer]ATSWAINS MATE Work Phone: [facility] 10-14-2022 09:42-0400 Heart rate 65 /min Estefanía Queden CHAIRMAN EMERITUS.[employer]WA[employer] MATE Work Phone: [facility] 10-14-2022 09:42-0400 SaO2% (BldA) [Mass fraction] 98 % Estefanía Queden CHAIRMAN EMERITUS.[employer]WA[employer] MATE Work Phone: [facility] 10-14-2022 09:42-0400 Systolic blood pressure 110 mm[Hg] Estefanía Queden CHAIRMAN EMERITUS.[employer]WA[employer] MATE Work Phone: [facility] Encounters Encounter Date Encounter Type Care Provider Facility Start: 02-08-2023 End: 02-08-2023 ambulatory ESTEFANÍA VO Facility:[facility] Start: 02-01-2023 End: 02-01-2023 ambulatory ESTEFANÍA VO Facility:[facility] Start: 02-01-2023 End: 02-01-2023 Patient encounter procedure Edwina Lyle CHAIRMAN EMERITUS.[employer]WA[employer] MATE Work Phone: [facility] Care Plan of Treatment Date Care Activity Detail Author Start: 10-15-2031 Urine microalbumin profile [facility] Start: 10-15-2023 COVID-19 VACCINE (#1) COVID-19 VACCI NE (#1) [facility] Immunizations Immunization Date Immunization Notes Care Provider Fa cility 10-14-2021 diphtheria, tetanus toxoids and acellular pertussis vaccine, Haemophilus influenzae type b conjugate, and poliovirus vaccine, inactivated ([id number]) Estefanía Vo APRN.CNP Work Phone: [facility] 10-19-2011 human papilloma viru s vaccine, quadrivalent Edmond Brunner MD Work Phone: [facility] 10-19-2011 Meningococcal, MCV4, unspecified conjugate formulation(groups A, C, Y and W-135) Edmond Brunner MD Work Phone: [facility] 04-02-2011 influenza virus vaccine, unspecified formulation Edmond Brunner MD Work Phone: [facility] Work Phone: 10-29-2010 hepatitis A vaccine, unspecified formulation Edmond Brunner MD Work Phone: [facility] Work Phone: 03-26-2008 hepatitis A vaccine, unspecified formulation Edmond Brunner MD Work Phone: [facility] Work Phone: 03-26-2008 influenza virus vaccine, unspecified formulation Edmond Brunner MD Work Phone: [facility] Work Phone: 10-20-2006 Meningococcal, MCV4, unspecified conjugate formulation(groups A, C, Y and W-135) Edmond Brunner MD Work Phone: [facility] Work Phone: 10-20-2006 tetanus toxoid, redu adeola diphtheria toxoid, and acellular pertussis vaccine, adsorbed Edmond Brunner MD Work Phone: [facility] Work Phone: 02-12-2000 diphtheria, tetanus toxoids and acellular pertussis vaccine Edmond Brunner MD Work Phone: [facility] Work Phone: 02-12-2000 measles, mumps and rubella virus vaccine Edmond Brunner MD Work Phone: [facility] Work Phone: 02-12-2000 poliovirus vaccine, inactivated Edmond Brunner MD Work Phone: [facility] Work Phone: 10-30-1996 diphtheria, tetanus toxoids and acellular pertussis vaccine Edmond Brunner MD Work Phone: [facility] Work Phone: 07-14-1996 chicken pox (disease) Edmond Brunner MD Work Phone: [facility] Work Phone: 06-12-1996 haemophilus influenz ae type b vaccine, HbOC conjugate Edmond Brunner MD Work Phone: [facility] Work Phone: 06-12-1996 measles, mumps and rubella virus vaccine Edmond Brunner MD Work Phone: [facility] Work Phone: 06-12-1996 trivalent poliovirus vaccine, live, oral Edmond Brunner MD Work Phone: [facility] Work Phone: 1995 diphtheria, tetanus toxoids and acellular pertussis vaccine Edmond Brunner MD Work Phone: [facility] Work Phone: 1995 haemophilus influenz ae type b vaccine, HbOC conjugate Edmond Brunner MD Work Phone: [facility] Work Phone: 1995 trivalent poliovirus vaccine, live, oral Edmond Brunner MD Work Phone: [facility] Work Phone: 1995 diphtheria, tetanus toxoids and acellular pertussis vaccine Edmond Brunner MD Work Phone: [facility] Work Phone: 1995 haemophilus influenz ae type b vaccine, HbOC conjugate Edmond Brunner MD Work Phone: [facility] Work Phone: 1995 hepatitis B vaccine, pediatric or pediatric/adolescent dosage Edmond Brunner MD Work Phone: [facility] Work Phone: 1995 trivalent poliovirus vaccine, live, oral Edmond Brunner MD Work Phone: [facility] Work Phone: 1995 diphtheria, tetanus toxoids and acellular pertussis vaccine Edmond Brunner MD Work Phone: [facility] Work Phone: 1995 haemophilus influenz ae type b vaccine, HbOC conjugate Edmond Brunner MD Work Phone: [facility] Work Phone: 1995 hepatitis B vaccine, pediatric or pediatric/adolescent dosage Edmond Brunner MD Work Phone: [facility] Work Phone: 1995 hepatitis B vaccine, pediatric or pediatric/adolescent dosage Edmond Brunner MD Work Phone: [facility] Work Phone: Payers Date Payer Category Payer Unknown [employer] PPO OOS [id number] 2021-Present [phone] [address] [place] [address] PPO [id number] 2021 Unknown [id number] Social History Date Type Detail Facility Start: 09-29-2016 End: 02-01-2023 Tobacco smoking status NHIS Never smoked tobacco [facility] Start: 09-29-2016 End: 02-01-2023 Tobacco use and exposure Smokeless tobacco non-user [facility] Start: 12-30-2021 Alcohol intake Current non-dr moshgiach of alcohol (finding) [facility] Start: 1995 Sex Assigned At Not on file [facility] Start: 10-14-2022 End: 02-01-2023 Alcohol intake Current drinker of alcohol (finding) [facility] Start: 10-14-2022 Alcohol Comment rare [place] [facility] Start: 10-14-2022 End: 02-01-2023 History of Social function [facility] Work Phone: Start: 10-14-2022 End: 02-01-2023 Tobacco use panel [facility] Work Phone: Adult Depression Screening Assessment 0 [facility] Work Phone: Clinical Notes 08-04-2022 to 02-08-2023 Edwina Lyle APRN.BOATSWAINS MATE - 02/01/2023 1:46 PM EDTTelephone Encounter - Lyubov Gonzalez MA - 10/14/2022 3:56 PM EDTPatient Jagdish Vo APRN.CNP - 10/14/2022 9:51 AM EDT Note Date & Type Note Facility 02-08-2023 Note HNO ID: [id number] Author: Jing Kothari APRN.BOATSWAINS MATE Service: ? Author Type: Nurse Practitioner Type: Progress Notes Filed: 02/08/2023 3:43 PM Note Text: Subjective HPI Alexandrea Schaffer II is a 28 year old male who presents with a need for a return to work note. He was seen here on 02/01/23 for right wrist pain. He had xrays done which were negative. He did not injure the wrist at work-he fell at a soccer practice. He has been pain free for the past 2 days and has not been wearing the wrist splint for the past 2 days. He has full range of motion to the right wrist. Review of Systems Constitutional: Negative for fever. Musculoskeletal: Negative for joint pain and myalgias. Skin: Negative. BP 122/78 Pulse 64 Temp 36.3 ?C (97.4 ?F) (Tympanic) Resp 16 Wt 79.7 kg (175 lb 9.6 oz) SpO2 99% BMI 22.55 kg/m? PAST MEDICAL HISTORY Diagnosis Date Acne 10/19/2011 First degree heart block 12/29/2009 eval by cardiology, holter monitor to be repeated in approx 4 years PMH - PAST MEDICAL HISTORY OF 2007 normal color vision PAST SURGICAL HISTORY Procedure Laterality Date CIRCUMCISION ALLERGIES Patient has no known allergies. MEDICATIONS No prescriptions on file. FAMILY HISTORY Problem Relation Age of Onset Hypertension Mother Heart disease Mother other (tia) Father Heart Attack Father Cancer Maternal Grandfather knee - all over now 2009 Cancer Paternal Grandfather melanoma Social History Tobacco Use Smoking status: Never Smokeless tobacco: Never Substance Use Topics Alcohol use: Yes Comment: rare Drug use: No Objective Physical Exam Vitals and nursing note reviewed. Constitutional: Appearance: Normal appearance. Musculoskeletal: General: No swelling or tenderness. Right wrist: No swelling or tenderness. Normal range of motion. Normal pulse. Skin: General: Skin is warm and dry. Findings: No bruising or erythema. Neurological: Mental Status: He is alert. ASSESSMENT/PLAN: 1. Return to work evaluation - ICD9: V72.85, ICD10: Z76.89 - patient has full range of motion to the right wrist. He may return to work without restrictions. Jing Kothari APRN.BOATSWAINS MATE [facility] 02-01-2023 Note HNO ID: [id number] Author: Edwina Lyle APRN.KIKE Service: ? Author Type: Nurse Practitioner Type: Progress Notes Filed: 02/01/2023 1:53 PM Note Text: This note was created using NoteWriter. Subjective Alexandreatrini Schaffer II is a 27 year old male. 27 year old male with PMH 1 degree heart block presents for complaints of right wrist pain. Right wrist Acute onset yesterday Endorses that he slipped over a soccer ball, And fell onto right wrist. Denies head injury or LOC Denies neck pain. Denies back pain. Right hand dominant. Has used Ice and Ibuprofen Presents with wrist brace. The history is provided by the patient. No humanities and languages professor was used. Wrist/forearm Injury The incident occurred 12 to 24 hours ago. [place] The injury mechanism was a fall. The pain is present in the right wrist. The quality of the pain is described as stabbing and aching. The pain does not radiate. The pain is at a severity of 5/10. The pain is moderate. The pain has been Constant since the incident. Pertinent negatives include no chest pain, muscle weakness, numbness or tingling. The symptoms are aggravated by palpation (movement). He has tried ice and rest for the symptoms. The treatment provided no relief. PAST MEDICAL HISTORY Diagnosis Date Acne 10/19/2011 First degree heart block 12/29/2009 eval by cardiology, holter monitor to be repeated in approx 4 years PMH - PAST MEDICAL HISTORY OF 2007 normal color vision PAST SURGICAL HISTORY Procedure Laterality Date CIRCUMCISION ALLERGIES Patient has no known allergies. MEDICATIONS No prescriptions on file. FAMILY HISTORY Problem Relation Age of Onset Hypertension Mother Heart disease Mother other (tia) Father Heart Attack Father Cancer Maternal Grandfather knee - all over now 2009 Cancer Paternal Grandfather melanoma Social History Tobacco Use Smoking status: Never Smokeless tobacco: Never Substance Use Topics Alcohol use: Yes Comment: rare Drug use: No Review of Systems Constitutional: Negative for activity change, appetite change and chills. Eyes: Negative for pain, discharge, redness and itching. Respiratory: Negative for apnea, cough, choking and chest tightness. Cardiovascular: Negative for chest pain. Gastrointestinal: Negative for abdominal pain, diarrhea, nausea and vomiting. Musculoskeletal: Right wrist Skin: Negative for color change, pallor, rash and wound. Allergic/Immunologic: Negative for environmental allergies, food allergies and immunocompromised state. Neurological: Negative for dizziness, tingling, facial asymmetry, numbness and headaches. Hematological: Negative for adenopathy. Does not bruise/bleed easily. Psychiatric/Behavioral: Negative for agitation and behavioral problems. Objective BP 138/74 Pulse 67 Temp 36.3 ?C (97.4 ?F) Resp 18 Wt 81.3 kg (179 lb 3.2 oz) SpO2 97% BMI 23.01 kg/m? Physical Exam Vitals and nursing note reviewed. Constitutional: General: He is not in acute distress. Appearance: Normal appearance. He is not ill-appearing, toxic-appearing or diaphoretic. HENT: Head: Normocephalic and atraumatic. Right Ear: External ear normal. Left Ear: External ear normal. Nose: Nose normal. No congestion or rhinorrhea. Mouth/Throat: Mouth: Mucous membranes are moist. Pharynx: Oropharynx is clear. No oropharyngeal exudate or posterior oropharyngeal erythema. Eyes: General: Right eye: No discharge. Left eye: No discharge. Extraocular Movements: Extraocular movements intact. Conjunctiva/sclera: Conjunctivae normal. Pupils: Pupils are equal, round, and reactive to light. Cardiovascular: Rate and Rhythm: Normal rate and regular rhythm. Pulses: Normal pulses. Heart sounds: Normal heart sounds. No murmur heard. No friction rub. No gallop. Pulmonary: Effort: Pulmonary effort is normal. No respiratory distress. Breath sounds: Normal breath sounds. No stridor. No wheezing, rhonchi or rales. Chest: Chest wall: No tenderness. Abdominal: General: Abdomen is flat. There is no distension. Palpations: Abdomen is soft. There is no mass. Tenderness: There is no abdominal tenderness. There is no guarding or rebound. Hernia: No hernia is present. Musculoskeletal: General: Tenderness (generalized TTP noted over right posterior wrist. Skin intact. +neuro +sensation. RP + 2 B/L) and signs of injury present. No swelling or deformity. Normal range of motion. Cervical back: Normal range of motion and neck supple. No rigidity or tenderness. Right lower leg: No edema. Left lower leg: No edema. Lymphadenopathy: Cervical: No cervical adenopathy. Skin: General: Skin is warm and dry. Capillary Refill: Capillary refill takes less than 2 seconds. Coloration: Skin is not jaundiced or pale. Findings: No bruising, lesion or rash. Neurological: General: No focal deficit presen (more content not included)... [facility] 02-01-2023 Note HNO ID: [id number] Author: Kourtney Valerio RT(R) Service: Radiology Author Type: Technologist Type: Progress Notes Filed: 02/01/2023 12:10 PM Note Text: Radiology Service Progress Note PATIENT NAME: Alexandrea Schaffer II DATE OF SERVICE: February 01, 2023 TIME: 12:01 PM PATIENT IDENTITY VERIFICATION COMPLETED USING TWO (2) IDENTIFIERS: Name and Date of confirmed by patient verbally. FALL SCREENING: Has the patient had 2 falls in the last year or 1 fall with injury or currently using an Ambulatory Assistive Device (Walker, Cane, Wheelchair, Crutches, etc.)? No PATIENT GENDER DATA: Male PATIENT RELEVANT IMPLANT DATA REVIEWED: Yes RADIOLOGY DEPARTMENT: General X-ray: Exam(s) Completed: Upper Extremity X-Ray(s): Wrist, right PERIPHERAL IV DATA: Not applicable SIGNED BY: Kourtney Valerio RT(R) February 01, 2023 12:01 PM [facility] 02-01-2023 History of Present illness Narrative This note was created using NoteWriter. Subjective Alexandrea Schaffer II is a 27 year old male. 27 year old male with PMH 1 degree heart block presents for complaints of right wrist pain. Right wrist Acute onset yesterday Endorses that he slipped over a soccer ball, And fell onto right wrist. Denies head injury or LOC Denies neck pain. Denies back pain. Right hand dominant. Has used Ice and Ibuprofen Presents with wrist brace. The history is provided by the patient. No humanities and languages professor was used. Wrist/forearm Injury The incident occurred 12 to 24 hours ago. [place] the park. The injury mechanism was a fall. The pain is present in the right wrist. The quality of the pain is described as stabbing and aching. The pain does not radiate. The pain is at a severity of 5/10. The pain is moderate. The pain has been Constant since the incident. Pertinent negatives include no chest pain, muscle weakness, numbness or tingling. The symptoms are aggravated by palpation (movement). He has tried ice and rest for the symptoms. The treatment provided no relief. PAST MEDICAL HISTORY Diagnosis Date Acne 10/19/2011 First degree heart block 12/29/2009 eval by cardiology, holter monitor to be repeated in approx 4 years PMH - PAST MEDICAL HISTORY OF 2007 normal color vision PAST SURGICAL HISTORY Procedure Laterality Date CIRCUMCISION ALLERGIES Patient has no known allergies. MEDICATIONS No prescriptions on file. FAMILY HISTORY Problem Relation Age of Onset Hypertension Mother Heart disease Mother other (tia) Father Heart Attack Father Cancer Maternal Grandfather knee - all over now 2009 Cancer Paternal Grandfather melanoma Social History Tobacco Use Smoking status: Never Smokeless tobacco: Never Substance Use Topics Alcohol use: Yes Comment: rare Drug use: No Review of Systems Constitutional: Negative for activity change, appetite change and chills. Eyes: Negative for pain, discharge, redness and itching. Respiratory: Negative for apnea, cough, choking and chest tightness. Cardiovascular: Negative for chest pain. Gastrointestinal: Negative for abdominal pain, diarrhea, nausea and vomiting. Musculoskeletal: Right wrist Skin: Negative for color change, pallor, rash and wound. Allergic/Immunologic: Negative for environmental allergies, food allergies and immunocompromised state. Neurological: Negative for dizziness, tingling, facial asymmetry, numbness and headaches. Hematological: Negative for adenopathy. Does not bruise/bleed easily. Psychiatric/Behavioral: Negative for agitation and behavioral problems. Objective BP 138/74 Pulse 67 Temp 36.3 C (97.4 F) Resp 18 Wt 81.3 kg (179 lb 3.2 oz) SpO2 97% BMI 23.01 kg/m Physical Exam Vitals and nursing note reviewed. Constitutional: General: He is not in acute distress. Appearance: Normal appearance. He is not ill-appearing, toxic-appearing or diaphoretic. HENT: Head: Normocephalic and atraumatic. Right Ear: External ear normal. Left Ear: External ear normal. Nose: Nose normal. No congestion or rhinorrhea. Mouth/Throat: Mouth: Mucous membranes are moist. Pharynx: Oropharynx is clear. No oropharyngeal exudate or posterior oropharyngeal erythema. Eyes: General: Right eye: No discharge. Left eye: No discharge. Extraocular Movements: Extraocular movements intact. Conjunctiva/sclera: Conjunctivae normal. Pupils: Pupils are equal, round, and reactive to light. Cardiovascular: Rate and Rhythm: Normal rate and regular rhythm. Pulses: Normal pulses. Heart sounds: Normal heart sounds. No murmur heard. No friction rub. No gallop. Pulmonary: Effort: Pulmonary effort is normal. No respiratory distress. Breath sounds: Normal breath sounds. No stridor. No wheezing, rhonchi or rales. Chest: Chest wall: No tenderness. Abdominal: General: Abdomen is flat. There is no distension. Palpations: Abdomen is soft. There is no mass. Tenderness: There is no abdominal tenderness. There is no guarding or rebound. Hernia: No hernia is present. Musculoskeletal: General: Tenderness (generalized TTP noted over right posterior wrist. Skin intact. +neuro +sensation. RP + 2 B/L) and signs of injury present. No swelling or deformity. Normal range of motion. Cervical back: Normal range of motion and neck supple. No rigidity or tenderness. Right lower leg: No edema. Left lower leg: No edema. Lymphadenopathy: Cervical: No cervical adenopathy. Skin: General: Skin is warm and dry. Capillary Refill: Capillary refill takes less than 2 seconds. Coloration: Skin is not jaundiced or pale. Findings: No bruising, lesion or rash. Neurological: General: No focal deficit present. Mental Status: He is alert and oriented to person, place, and time. Cranial Nerves: No cranial nerve deficit. Sensory: No sensory deficit. Motor: No weakness. Coordination: Coordination normal. Gait: Gait normal. Deep Tendon Reflexes: Reflexes normal. Psychiatric: Mood and Affect: Mood normal. Behavior: Behavior normal. Thought Content: Thought content normal. Assessment and Plan ASSESSMENT/PLAN: 1. Wrist pain, right - ICD9: 719.43, ICD10: M25.531 (primary diagnosis) +injury that occurred yesterday evening. - XR WRIST GENERAL 3V PA/LAT/OBL RIGHT-negative for acute process RICE therapy OTC analgesics Continue to use home velcro wrist splint 2. Fall on same level from slipping, tripping or stumbling, initial encounter - ICD9: E885.9, ICD10: W01.0XXA Occurred yesterday, Slipped on soccer ball No head injury No LOC Edwina Lyle APRN.KIKE documented in this encounter [facility] 10-14-2022 Miscellaneous Notes Spoke to [place]. She will fax over medical records for ER . Lyubov Gonzalez MA documented in this encounter [facility] 10-14-2022 Note HNO ID: [id number] Author: Estefanía Vo APRN.KIKE Service: ? Author Type: Nurse Practitioner Type: Progress Notes Filed: 10/14/2022 4:09 PM Note Text: [facility] [place] Estefanía Gilda CHAIRMAN EMERITUS-[employer] [address] [place] [address] Dept Dept. Visit Date: October 14, 2022 Mr.Bradley Bernard Schaffer II Date of : 1995 MRN/E #: [id number] Chief Complaint: Patient presents with: Establish Care: Was dx with heart murmer. Needs note to clear him to work. Last time seen community worker was about 2 years ago. Has apt .with community worker in March (Cant remember name) last PCP was in [place] about 3 years ago. Said it is [facility]. History of Present Illness Alexandrea Schaffer II is a 27 year old male presents today as a new patient and to discuss clearance for work from a cardiac standpoint. He states he has had a heart murmur since he was little . He was following with a community worker for vasovagal syncope, but hasn't seen anyone in 5 years (followed with Dr. Mi). He is scheduled with a community worker but can't be seen until March. He hasn't had a PCP in about 3 years. Per chart review, he has a history of a first degree heart block but there is no documentation about a heart murmur. He was in [place] [facility] in July of this year for complaints of dizziness and near syncope. He states he ended up being dehydrated and once he received fluids he felt better. He does report that his mother at the age of 51 from a possible stroke? His father has a history of heart disease and had a NH at the age of 50 and two TIAs. He states none of his siblings have any cardiac problems. The history is provided by the patient. No humanities and languages professor was used. PAST MEDICAL HISTORY Diagnosis Date Acne 10/19/2011 First degree heart block 12/29/2009 eval by cardiology, holter monitor to be repeated in approx 4 years PMH - PAST MEDICAL HISTORY OF 2007 normal color vision PAST SURGICAL HISTORY Procedure Laterality Date CIRCUMCISION Social History Tobacco Use Smoking status: Never Smokeless tobacco: Never Substance Use Topics Alcohol use: Yes Comment: rare Drug use: No Social History Social History Narrative Not on file Family History Reviewed Including Cardiac Diseases, Psychiatric Diseases, AND Substance Abuse Problem: Hypertension Relation: Mother Age of Onset: (Not Specified) Problem: Heart disease Relation: Mother Age of Onset: (Not Specified) Problem: other (tia) Relation: Father Age of Onset: (Not Specified) Problem: Heart Attack Relation: Father Age of Onset: (Not Specified) Problem: Cancer Relation: Maternal Grandfather Age of Onset: (Not Specified) Comment: knee - all over now 2009 Problem: Cancer Relation: Paternal Grandfather Age of Onset: (Not Specified) Comment: melanoma ALLERGIES No Known Allergies Current Outpatient Medications Medication Sig benzonatate (TESSALON PERLE) 100 mg capsule Take 1-2 capsules tid prn, no more than 6 in 24 hours. Current Facility-Administered Medications Medication Dose Route Frequency perflutren lipid microspheres 1.3 mL in NaCl (PF) 0.9% 10 mL injection (DEFINITY) INTRAVENOUS DIRECTED PRN sodium chloride 0.9 % (flush) 10 mL (BD POSIFLUSH) 10 mL INTRAVENOUS DIRECTED PRN Review of Systems Review of Systems Constitutional: Negative for appetite change, chills, diaphoresis, fatigue, fever and unexpected weight change. Eyes: Negative for visual disturbance. Respiratory: Negative for cough, chest tightness, shortness of breath and wheezing. Cardiovascular: Negative for chest pain, palpitations and leg swelling. Gastrointestinal: Negative. Genitourinary: Negative. Musculoskeletal: Negative. Skin: Negative. Neurological: Negative for dizziness, light-headedness and headaches. Hematological: Negative. Vital Signs BP 110/60 Pulse 65 Temp 97.7 Ht 6' 2 (1.88m) Wt 186 lb (84.4kg) SpO2 98% BMI 23.87 kg/(m2). Physical Exam Vitals and nursing note reviewed. Constitutional: Appearance: Normal appearance. He is normal weight. HENT: Mouth/Throat: Mouth: Mucous membranes are moist. Dentition: Abnormal dentition. Pharynx: Oropharynx is clear. Eyes: General: Vision grossly intact. Pupils: Pupils are equal, round, and reactive to light. Neck: Thyroid: No thyromegaly. Cardiovascular: Rate and Rhythm: Normal rate and regular rhythm. Heart sounds: Normal heart sounds, S1 normal and S2 normal. No murmur heard. Pulmonary: Effort: Pulmonary effort is normal. Breath sounds: Normal breath sounds and air entry. Abdominal: Palpations: Abdomen is soft. Musculoskeletal: Cervical back: Neck supple. Skin: General: Skin is warm and dry. Neurological: Mental Status: He is alert and oriented to person, place, and time. Psychiatric: Mood and Affect: Mo (more content not included)... [facility] 10-14-2022 Instructions Estefanía Vo APRN.CNP - 10/14/2022 10:25 AM EDT [facility] Cardiac testing, Sleep services, and pulmonary testing, please jahaira [phone] documented in this encounter [facility] 10-14-2022 History of Present illness Narrative Images from the original note were not included. [facility] Estefanía Vo APRN-[facility]WA[employer] MATE [address] [place] [address] Dept Dept. Visit Date: October 14, 2022 Mr.Bradley Bernard Schaffer II Date of : 1995 MRN/E #: [id number] Chief Complaint: Patient presents with: Establish Care: Was dx with heart murmer. Needs note to clear him to work. Last time seen community worker was about 2 years ago. Has apt .with community worker in March (Cant remember name) last PCP was in [place] about 3 years ago. Said it is [facility]. History of Present Illness Alexandrea Schaffer II is a 27 year old male presents today as a new patient and to discuss clearance for work from a cardiac standpoint. He states he has had a heart murmur since he was little . He was following with a community worker for vasovagal syncope, but hasn't seen anyone in 5 years (followed with Dr. Mi). He is scheduled with a community worker but can't be seen until March. He hasn't had a PCP in about 3 years. Per chart review, he has a history of a first degree heart block but there is no documentation about a heart murmur. He was in [place] [facility] in July of this year for complaints of dizziness and near syncope. He states he ended up being dehydrated and once he received fluids he felt better. He does report that his mother at the age of 51 from a possible stroke? His father has a history of heart disease and had a NH at the age of 50 and two TIAs. He states none of his siblings have any cardiac problems. The history is provided by the patient. No humanities and languages professor was used. PAST MEDICAL HISTORY Diagnosis Date Acne 10/19/2011 First degree heart block 12/29/2009 eval by cardiology, holter monitor to be repeated in approx 4 years PMH - PAST MEDICAL HISTORY OF 2007 normal color vision PAST SURGICAL HISTORY Procedure Laterality Date CIRCUMCISION Social History Tobacco Use Smoking status: Never Smokeless tobacco: Never Substance Use Topics Alcohol use: Yes Comment: rare Drug use: No Social History Social History Narrative Not on file Family History Reviewed Including Cardiac Diseases, Psychiatric Diseases, & Substance Abuse Problem: Hypertension Relation: Mother Age of Onset: (Not Specified) Problem: Heart disease Relation: Mother Age of Onset: (Not Specified) Problem: other (tia) Relation: Father Age of Onset: (Not Specified) Problem: Heart Attack Relation: Father Age of Onset: (Not Specified) Problem: Cancer Relation: Maternal Grandfather Age of Onset: (Not Specified) Comment: knee - all over now 2009 Problem: Cancer Relation: Paternal Grandfather Age of Onset: (Not Specified) Comment: melanoma ALLERGIES No Known Allergies Current Outpatient Medications Medication Sig benzonatate (TESSALON PERLE) 100 mg capsule Take 1-2 capsules tid prn, no more than 6 in 24 hours. Current Facility-Administered Medications Medication Dose Route Frequency perflutren lipid microspheres 1.3 mL in NaCl (PF) 0.9% 10 mL injection (DEFINITY) INTRAVENOUS DIRECTED PRN sodium chloride 0.9 % (flush) 10 mL (BD POSIFLUSH) 10 mL INTRAVENOUS DIRECTED PRN Review of Systems Review of Systems Constitutional: Negative for appetite change, chills, diaphoresis, fatigue, fever and unexpected weight change. Eyes: Negative for visual disturbance. Respiratory: Negative for cough, chest tightness, shortness of breath and wheezing. Cardiovascular: Negative for chest pain, palpitations and leg swelling. Gastrointestinal: Negative. Genitourinary: Negative. Musculoskeletal: Negative. Skin: Negative. Neurological: Negative for dizziness, light-headedness and headaches. Hematological: Negative. Vital Signs BP 110/60 Pulse 65 Temp 97.7 Ht 6' 2 (1.88m) Wt 186 lb (84.4kg) SpO2 98% BMI 23.87 kg/(m^2). Physical Exam Vitals and nursing note reviewed. Constitutional: Appearance: Normal appearance. He is normal weight. HENT: Mouth/Throat: Mouth: Mucous membranes are moist. Dentition: Abnormal dentition. Pharynx: Oropharynx is clear. Eyes: General: Vision grossly intact. Pupils: Pupils are equal, round, and reactive to light. Neck: Thyroid: No thyromegaly. Cardiovascular: Rate and Rhythm: Normal rate and regular rhythm. Heart sounds: Normal heart sounds, S1 normal and S2 normal. No murmur heard. Pulmonary: Effort: Pulmonary effort is normal. Breath sounds: Normal breath sounds and air entry. Abdominal: Palpations: Abdomen is soft. Musculoskeletal: Cervical back: Neck supple. Skin: General: Skin is warm and dry. Neurological: Mental Status: He is alert and oriented to person, place, and time. Psychiatric: Mood and Affect: Mood normal. Behavior: Behavior is cooperative. Cognition and Memory: Cognition normal. Visit Diagnoses (I44.0) First degree heart block (primary encounter diagnosis) (I45.10) Incomplete right bundle branch block (RBBB) determined by electrocardiography (R55) Near syncope Assessment and Plan 1. First degree heart block - ICD9: 426.11, ICD10: I44.0 (primary diagnosis) - This is not a new finding as he has been followed by cardiology in the past. He states he had an EKG in the ER in July, so I will request those records to compare. - Per chart review, it does not appear that he has had an echo ever done. Recommend completing one. - Keep appointment with cardiology in March. - F/U sooner if you would develop symptoms of syncope. - ECG COMPLETE - ECHO 2. Incomplete right bundle branch block (RBBB) determined by electrocardiography - ICD9: 426.4, ICD10: I45.10 - ECHO - ECG B/O WO INTERP (MED OFFICE) 3. Near syncope - ICD9: 780.2, ICD10: R55 - ECHO Discussed above plan with patient and/or caregiver. Patient and/or caregiver agreeable with above plan. Follow up visit Return in about 6 months (around 04/15/2023) for heart block. Estefanía Vo APRN.CNP, signed on October 14, 2022 9:51 AM documented in this encounter [facility] 08-04-2022 Note HNO ID: [id number] Author: Edmond Brunner MD Service: ? Author Type: Physician Type: Progress Notes Filed: 08/04/2022 2:10 PM Note Text: Express Care Triage Note: Patient presents [facility] the [facility] with complaint of feeling dizzy/light-headed and almost passing out at work today. He had a bad headache yesterday. Denies chest pain or shortness of breath. No recent injury. Patient advised further evaluation in the emergency room. He will go to [facility]. [facility] 08-04-2022 History of Present illness Narrative Express Care Triage Note: Patient presents to the [facility] with complaint of feeling dizzy/light-headed and almost passing out at work today. He had a bad headache yesterday. Denies chest pain or shortness of breath. No recent injury. Patient advised further evaluation in the emergency room. He will go to [facility]. documented in this encounter [facility] Diagnosis First degree heart block- Primary First degree atrioventricular block Incomplete right bundle branch block (RBBB) determined by electrocardiography Near syncope Syncope and collapse [facility] Diagnosis Wrist pain, right- Primary Pain in joint, forearm Fall on same level from slipping, tripping or stumbling, initial encounter documented [facility] (n[facility]ative)* Outpatient Procedure (Routine) - Pending Review Specialty Diagnoses / Procedures Referred By Anuel stone Referred To [facility] Diagnoses First degree heart block Incomplete right bundle branch block (RBBB) determined by electrocardiography Near syncope Procedures ECHO ECHO TTHRC R-T 2D W/WOM-MODE COMPL SPEC&COLR D Estefanía Vo APRN.[facility] [address] [address] [place] [address] [facility] [address] [place] [address] Referral ID Status Reason Start Date Expiration Date Visits Requested Visits Authorized [id number] Pending Review Auto-Generat ed Referral 10/14/2022 10/14/2023 1 1 [facility]ative)* Diagnostic Procedure Only (Urgent) - Pending Review Specialty Diagnoses / Procedures Referred By Anuel stone Referred To Contact XR IMAGING Diagnoses Wrist pain, right Procedures XR WRIST GENERAL 3V PA/LAT/OBL RIGHT RADEX WRIST COMPLETE MINIMUM 3 VIEWS Edwina Lyle APRN.[facility]WA[employer] [address] [address] [place] [address] [place] [id number] Referral ID Status Reason Start Date Expiration Date Visits Requested Visits Authorized [id number] Pending Review Auto-Generat ed Referral 02/01/2023 03/02/2024 1 1 [facility] Summary Purpose Family History No Family History Records FoundNo Family History Records Found Advance Directives No Advanced Directives Records FoundNo Advanced Directives Records Found Additional Source Comments Source Comments (unrecognize d section and content) In the event this informatio n is protected by the Federal Confidentiality of Alcohol and Drug Abuse Patient Records regulations: The Federal rules restrict any use of the information to criminally investigate or prosecute any alcohol or drug abuse patient.[facility] the event this information is protected by the Federal Confidentiality of Alcohol and Drug Abuse Patient Records regulations: The Federal rules restrict any use of the information to criminally investigate or prosecute any alcohol or drug abuse patient.[facility] the event this information is protected by the Federal Confidentiality of Alcohol and Drug Abuse Patient Records regulations: The Federal rules restrict any use of the information to criminally investigate or prosecute any alcohol or drug abuse patient.[facility] Center[facility] the event this information is protected by the Federal Confidentiality of Alcohol and Drug Abuse Patient Records regulations: The Federal rules restrict any use of the information to criminally investigate or prosecute any alcohol or drug abuse patient.[facility] Reason for Visit (unrecogniz ed section and content) Specialty Diagnoses / Procedures Referred By Anuel t Referred To Contact FAMILY MEDICINE Diagnoses Financial Assistance - Establish Care-work clearance for heart murmur Procedures Financial Assistance - New Patient Self Fam[address] [address] Referral ID Status Reason Start Date Expiration Date Visits Requested Visits Authorized [id number] Authorized Financial Clearance Required - Self Pay Patient Cleared - Qualified 100% FAS 09/28/2022 12/27/2022 99 99 Reason Comments Patient Update Reason Comments Wrist/forearm Injury R landed on hand x last night Care Teams (unrecognized sec tion and content) Environmental Remediation Consultant Relationship Specialty Start Date End Date Estefanía Vo, CHAIRMAN EMERITUS.[address] [address], [place] [id number] PCP - General Family Medicine 10/14/22 Environmental Remediation Consultant Relationship Specialty Start Date End Date Estefanía Vo, CHAIRMAN EMERITUS.[employer]WA[employer] [address], [place] [id number] PCP - General Family Medicine 10/14/22 (unrecognized sect ion and content) No Status Records FoundNo Status Records Found INFORMATION SOURCE (unrecogn ized section and content) DATE CREATED AUTHOR AUTHOR'S DANNY ATKRISTIE 05/22/2023 [facility] FOR RECORDS PERTAINING TO PATIENTS WHO ARE OR HAVE BEEN ENROLLED IN A CHEMICAL DEPENDENCY/SUBSTANCEABUSE PROGRAM, SOME INFORMATION MAY BE OMITTED. This clinical summary was aggregated from multiple sources. Caution should be exercised in using it in the provision of clinical care. This summary normalizes information from multiple sources, and as a consequence, information in this document may materially change the coding, format and clinical context of patient data. In addition, data may be omitted in some cases. CLINICAL DECISIONS SHOULD BE BASED ON THE PRIMARY CLINICAL RECORDS. [facility] [employer] [facility]. provides no warranty or guarantee of the accuracy or completeness of information in this document.
--- NOTE | 2023-07-10 16:55 | RAD_ITS ---
EXAM: XR RIGHT FINGERS, 2 OR MORE VIEWS CLINICAL INDICATION: Trauma -- 5th digit TECHNIQUE: Frontal, lateral and oblique views of the fingers of the right hand. COMPARISON: No relevant prior studies available. FINDINGS: BONES/JOINTS: Unremarkable. No acute fracture. No subluxation. Normal alignment. Preservation of the joint space. No sclerotic or destructive changes observed. SOFT TISSUES: Soft tissue swelling around the fifth digit. Acute volar plate fracture of the base of the fifth proximal phalanx. RAD/Finger(s) Min 2 Views IMPRESSION: Soft tissue swelling around the fifth digit. Acute volar plate fracture of the base of the fifth proximal phalanx. Electronically Signed: James Reagan MD at 17:37 EST Reading Location ID and State: [facility]0 / MD , Service support ,
== END 2023-07-10 18:18 | disposition home or self-care (01) ==
PROVIDERS: Emergency Provider Emergency Medicine; Visit Provider Emergency Medicine
DX: S62.616A Displaced fracture of proximal phalanx of right little finger, initial encounter for closed fracture (principal); W50.1XXA Accidental kick by another person, initial encounter; Y93.66 Activity, soccer; Y92.89 Other specified places as the place of occurrence of the external cause
CPT/HCPCS: 73140; 99282

== ENCOUNTER 2023-10-28 22:48 | Emergency (ER) | payer BC, SELFPAY ==
[2023-10-28 22:48] VITALS: BP 133/75; PULSE 52; RESP 18; TEMP 37; O2SAT 99; BMI 23.1
--- NOTE | 2023-10-28 23:12 | RAD_ITS ---
INDICATION: injury EXAMINATION/TECHNIQUE: X-RAY - LEFT XR Foot Min 3 Views 3 VIEWS COMPARISON: No relevant prior comparison study available FINDINGS: SOFT TISSUES: No soft tissue swelling or gas. No radiopaque foreign body. BONES/JOINTS: No acute fracture or subluxation.. Normal alignment. Preservation of the joint space.. No sclerotic or destructive changes observed. RAD/Foot min 3 Views IMPRESSION: No fracture or malalignment. Electronically Signed: Justin Cox MD at 23:43 EDT ,
--- NOTE | 2023-10-28 23:17 | EDS_ITS ---
HPI History of Present Illness Chief Complaint: Lower Extremity Injury Informant: patient Narrative Narrative: Patient is a 28-year-old male with no significant past medical history. He states that he was playing soccer on Tuesday evening and he was playing the goalie position when another player came across and took out his left leg and landed on his left foot. He states that he has had pain swelling and bruising since that time. He reports that he works on his feet for roughly 12 hours a day and that he feels the bruising and pain has slightly increased since the trauma. He has concern for potential fracture secondary to this and therefore comes in for evaluation. He denies any numbness tingling or weakness and he denies any history of bleeding disorder or blood thinner use. [facility] Medical History Irregular heart beat Heart block Home Medications ?Medication ?Instructions ?Recorded ?Last Taken ?Type NK 02/08/21 Unknown History Allergy/AdvReac Type Severity Reaction Status Date / Time No Known Allergies Allergy Verified 10/28/23 22:50 Social History Smoking Status: Never smoker substance use type: does not use ROS ROS ED Constitutional Constitutional ED: Denies chills or fever(s) ENT ENT ED: Denies sore throat Cardiovascular Cardiovascular: Denies chest pain Respiratory/Chest Respiratory/Chest: Denies cough or dyspnea Gastrointestinal Gastrointestinal: Denies abdominal pain, diarrhea, nausea or vomiting Genitourinary Genitourinary ED: Denies dysuria Musculoskeletal Musculoskeletal: Reports other Details: Positive left foot pain Integumentary Reports other Details: Positive left foot bruising and swelling ; Denies rash Neurologic Neurologic: Denies headache(s), paresthesias or weakness Hematologic/Lymphatic Hematologic/Lymphatic: Denies easy bleeding or easy bruising EXAM Physical Exam Const Vital Signs: 10/28/23 22:48 Temperature 98.6 F Temperature Source Temporal Pulse Rate 52 L Respiratory Rate 18 Blood Pressure 133/75 H Blood Pressure Mean 94 Pulse Ox 99 Oxygen Delivery Method Room Air Positive well nourished and well developed General Appearance ED: well developed; Negative for pallor HEENT HEENT Narrative: Normocephalic atraumatic Eyes PERRL and EOMs intact bilaterally General Eye ED: Negative for scleral icterus Neck supple Resp normal respiratory effort and clear to auscultation bilaterally Cardio regular rate and regular rhythm Extremity Extremity Narrative: Left lower extremity is neurovascular intact. Patient has diffuse soft tissue swelling to the dorsal aspect of the left foot with ecchymosis extending across the dorsum of the left foot to the base of the second through fifth proximal phalanx. There is no obvious bony deformity or joint effusion. No subungual hematoma. No ligamentous laxity or tendon injury noted. The Achilles tendon is intact and ankle ligaments are stable. Patient does have superficial abrasion to the lateral aspect of the left lower leg without secondary findings to suggest infection. Remainder of the exam is normal Neuro oriented x3, CN's II-XII intact bilaterally and no sensory deficits noted Sensorium / Orientation: alert Psych mental status grossly normal Skin no rashes or lesions noted Skin Narrative: Soft tissue swelling with ecchymosis and superficial abrasion to the left ankle and foot as documented above General Skin Exam: Negative for jaundice or pallor MDM MDM MDM Narrative Medical decision making narrative: Patient arrived to the ER with stable vitals and reported direct trauma to the left foot that occurred 2 days ago. Differential diagnosis is for contusion versus fracture and secondary to this an x-ray was obtained. X-ray revealed no acute fracture or dislocation or retained foreign body indicating patient has a foot contusion. Patient was informed of this and advised on symptomatic care and is otherwise safe for discharge. Radiography Diagnostic Testing: Clinical Impression(s) from Imaging Studies Foot X-Ray 10/28/23 23:12 IMPRESSION: No fracture or malalignment. Electronically Signed: Justin Cox MD at 23:43 EDT , Left foot x-ray as interpreted by the emergency medicine physician reveals no acute fracture dislocation joint effusion or retained foreign body Discharge Plan Triage Chief Complaint: Lower Extremity Injury ED Provider: Prabhjot Duran Dx/Rx/DC Orders Clinical Impression: Contusion of foot, left Instructions: ED Foot Contusion Prescriptions: No Action NK Stand Alone Forms: ED Work / School Excuse Primary Care Provider: Care Physician,No Primary Referrals: Benjamin Stahl MD [Med Staff - Active Staff] - Care Physician,No Primary [Primary Care Provider] - Activity Restrictions/Additional Instructions: Your x-ray revealed no obvious fracture or dislocation to your foot indicating you have a deep bone bruise and rupture of superficial blood vessels. Ice the area to reduce pain and speed healing and you can control the pain with Tylenol and/or Motrin and return to the ER should you have any further concerns Print Language: Italian Disposition Disposition: Home, Self Care
[2023-10-29 00:11] VITALS: BP 139/75; PULSE 53; RESP 16; TEMP 36.1; O2SAT 98
== END 2023-10-29 00:15 | disposition home or self-care (01) ==
PROVIDERS: Emergency Provider Emergency Medicine; Visit Provider Emergency Medicine
DX: S90.32XA Contusion of left foot, initial encounter (principal); X58.XXXA Exposure to other specified factors, initial encounter; Y93.66 Activity, soccer
CPT/HCPCS: 73630; 99282

== ENCOUNTER 2024-06-08 23:38 | Emergency (ER) | payer BC, SELFPAY ==
[2024-06-08 23:38] VITALS: BP 155/82; PULSE 64; RESP 18; TEMP 36.9; O2SAT 98; BMI 24.6
--- NOTE | 2024-06-08 23:55 | RAD_ITS ---
INDICATION: cough COUGH FOR 4-5 DAYS AFTER SMOKE INHALATION EXAMINATION/TECHNIQUE: X-RAY - XR Chest 2 Views COMPARISON: Prior study dated: 08/04/2022 FINDINGS: LINES/DEVICES: None. LUNGS: No consolidation. No pneumothorax. MEDIASTINUM: Unremarkable. CARDIAC SILHOUETTE: Not enlarged. BONES AND SOFT TISSUES: No acute abnormalities. RAD/Chest PA and Lateral IMPRESSION: No evidence of active intrathoracic disease. Electronically Signed: Radha Fields MD at 1:00 EST ,
[2024-06-09] MEDS: Ipratropium/Albuterol Sulfate 3 ML AMPUL.NEB INHALATION (00:04)
[2024-06-09] MEDS: predniSONE 20 MG Tablet 60 MG PO (00:34)
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
[2024-06-09] MEDS: Albuterol Sulfate 8 gm Inhaler (60 puffs) 2 PUFF INHALATION (00:58)
[2024-06-09 01:00] VITALS: BP 129/67; PULSE 63; RESP 18; TEMP 36.7; O2SAT 97
== END 2024-06-09 01:02 | disposition home or self-care (01) ==
PROVIDERS: Emergency Provider Emergency Medicine; Visit Provider Emergency Medicine
DX: J68.0 Bronchitis and pneumonitis due to chemicals, gases, fumes and vapors (principal); F17.200 Nicotine dependence, unspecified, uncomplicated
CPT/HCPCS: 71046; 94640; 99282

== ENCOUNTER 2024-12-24 06:57 | Emergency (ER) | payer OTHER, SELFPAY ==
[2024-12-24 06:58] VITALS: BP 137/89; PULSE 51; RESP 18; TEMP 36.6; O2SAT 99; BMI 27.1
--- NOTE | 2024-12-24 07:07 | CT_ITS ---
EXAM: NONCONTRAST CT SCAN OF THE HEAD CLINICAL HISTORY: Pain, headache, nausea and vomiting COMPARISON: August 04, 2022 TECHNIQUE: Serial axial series through the head were obtained without contrast. 2-D coronal and sagittal reformats were then obtained. FINDINGS: Brain: There is no acute large territorial infarct, intracranial hemorrhage, midline shift or mass effect. The sella and pineal gland regions appear unremarkable. There is no evidence of cerebellar tonsillar herniation. Ventricles: There is no acute hydrocephalus. Basilar cisterns are patent. Paranasal sinuses: Well-aerated Mastoid air cells: Well-aerated. Calvarium: The bony calvarium is intact. Orbits: The bilateral globes are symmetric, without retrobulbar compressive mass lesion or hemorrhage. CT/Brain/Head without Contrast IMPRESSION: No acute intracranial pathology. Reading [facility]
--- NOTE | 2024-12-24 07:07 | CT_ITS ---
EXAM: NONCONTRAST CT SCAN OF THE HEAD CLINICAL HISTORY: Pain, headache, nausea and vomiting COMPARISON: August 04, 2022 TECHNIQUE: Serial axial series through the head were obtained without contrast. 2-D coronal and sagittal reformats were then obtained. FINDINGS: Brain: There is no acute large territorial infarct, intracranial hemorrhage, midline shift or mass effect. The sella and pineal gland regions appear unremarkable. There is no evidence of cerebellar tonsillar herniation. Ventricles: There is no acute hydrocephalus. Basilar cisterns are patent. Paranasal sinuses: Well-aerated Mastoid air cells: Well-aerated. Calvarium: The bony calvarium is intact. Orbits: The bilateral globes are symmetric, without retrobulbar compressive mass lesion or hemorrhage. CT/Brain/Head without Contrast IMPRESSION: No acute intracranial pathology. Reading [facility]
--- NOTE | 2024-12-24 07:08 | EKG12_ITS ---
Test Reason : SYNCOPE Blood Pressure : */* mmHG Vent. Rate : 50 BPM Atrial Rate : 50 BPM P-R Int : 182 ms QRS Dur : 102 ms QT Int : 448 ms P-R-T Axes : 19 106 49 degrees QTcB Int : 408 ms Sinus bradycardia with sinus arrhythmia Rightward axis Incomplete right bundle branch block Borderline ECG Confirmed by LAXMI MCGUIRE, ABRAN ([id number]), market editor SENAIT LEDESMA ([id number]) on 12/24/2024 1:17:23 PM Referred By: Confirmed By: ABRAN HAIR MD
--- NOTE | 2024-12-24 07:08 | EKG12_ITS ---
Test Reason : SYNCOPE Blood Pressure : */* mmHG Vent. Rate : 50 BPM Atrial Rate : 50 BPM P-R Int : 182 ms QRS Dur : 102 ms QT Int : 448 ms P-R-T Axes : 19 106 49 degrees QTcB Int : 408 ms Sinus bradycardia with sinus arrhythmia Rightward axis Incomplete right bundle branch block Borderline ECG Confirmed by LAXMI MCGUIRE, ABRAN ([id number]), technical editor SENAIT LEDESMA ([id number]) on 12/24/2024 1:17:23 PM Referred By: Confirmed By: ABRAN HAIR MD
--- NOTE | 2024-12-24 07:08 | EX.ED.VIS.HA ---
HPI History of Present Illness Chief Complaint: Headache Narrative Narrative: 29-year-old male presenting for headache. States he woke up with this yesterday was not severe but at times the headache would get worse and caused him to vomit throughout the day yesterday. Headache is persisting this morning although he has not vomited this morning. He would take Tylenol off-and-on throughout the day yesterday seem to respond to it improved until he got worse when he would vomit. He states at times he was dizzy/near syncopal, which felt like lightheadedness, mostly with standing so he was trying to drink plenty of water. He denies any syncope or disequilibrium, vertiginous symptoms, and the vomiting was more associated with a headache than the dizziness. He denies any neck pain or stiffness or fever/chills. He denies any recent head injury. Denies any recent illness or [id number] medications other than Tylenol for the headache. Denies any photophobia or vision changes. No numbness, tingling, or other focal neurologic symptoms. States he has had headaches like this maybe once before, otherwise headaches are relatively uncommon but he does get them from time to time. He has a sibling sister who takes prescription medication because of migraines. No one in the family with a brain mass or cerebral aneurysm that he is aware of. [facility] Medical History Irregular heart beat Heart block Home Medications ?Medication ?Instructions ?Recorded ?Last Taken ?Type NK 12/24/24 Unknown History Allergy/AdvReac Type Severity Reaction Status Date / Time No Known Allergies Allergy Verified 12/24/24 06:58 Family History no significant family his Social History Smoking Status: Never smoker substance use type: does not use ROS ROS ED Constitutional Constitutional ED: Denies chills or fever(s) Eyes Eyes: Denies blurry vision, change in vision, diplopia, photophobia or tunnel vision ENT ENT ED: Denies rhinorrhea or sore throat Cardiovascular Cardiovascular: Reports lightheadedness; Denies chest pain, leg edema, palpitations or syncope Respiratory/Chest Respiratory/Chest: Denies cough or dyspnea Gastrointestinal Gastrointestinal: Reports nausea and vomiting; Denies abdominal pain or diarrhea Genitourinary Genitourinary ED: Denies dysuria, hematuria or urinary frequency Musculoskeletal Musculoskeletal: Denies back pain or neck pain Integumentary Denies abscess or rash Neurologic Neurologic: Reports headache(s); Denies abnormal gait, abnormal hearing, abnormal speech, disequilibrium, dizziness, paresthesias, seizures, syncope or weakness Psychiatric Psychiatric: Denies suicidal thoughts EXAM Physical Exam Const Vital Signs: 12/24/24 06:58 12/24/24 06:58 Temperature 97.9 F Temperature Source Oral Pulse Rate 51 L Respiratory Rate 18 Respiratory Effort Normal Respiratory Pattern Normal Blood Pressure 137/89 H Blood Pressure Mean 105 Pulse Ox 99 Oxygen Delivery Method Room Air Positive well nourished and well developed Constitutional Narrative: Keenly alert well-appearing no distress General Appearance ED: well developed and NAD HEENT Reports moist mucous membranes normocephalic and atraumatic Eyes PERRL and EOMs intact bilaterally Neck full ROM and supple Resp normal respiratory effort and clear to auscultation bilaterally Cardio regular rate, regular rhythm and no murmurs GI non-tender and non-distended Auscultation: normoactive bowel sounds Palpation: soft Back/Spine no CVA tenderness General Back: other FROM Extremity normal to inspection General Extremety ED: Negative for edema, pulses abnormal or tenderness General Extremity: Negative for edema or pulses abnormal Neuro oriented x3, CN's II-XII intact bilaterally and no sensory deficits noted Neuro Narrative: Normal drpjwn-[id number] in addition bilaterally. 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 Normal response to questions. Sensorium / Orientation: awake and alert Motor Exam: strength 5/5 throughout Psych mental status grossly normal Skin no rashes or lesions noted and no wounds MDM MDM MDM Narrative Medical decision making narrative: Patient states he has never had any brain imaging for headaches in the past. Reasonable to obtain. Also will give him some IV Reglan and obtain an EKG, his vital signs are normal with heart rate at 51 and blood pressure 137/89, and at that measurement, blood pressure not likely causing his headache. EKG my interpretation is normal. He has an RSR' which can be normal at this age, and it is unchanged compared with prior. I reviewed the imaging, as well as the result which I agree with, it is negative for anything acute. I do not think he needs CT angiography of his intracranial vessels at this time given the symptoms and lack of a thunderclap headache, syncope, or other symptoms to suggest a ruptured aneurysm. Prior to treatment his headache was a 5/10, after Reglan it did not change markedly so he was then given Toradol after confirming that his last creatinine was normal. After this he feels much better his headache is gone. He has a primary care physician and he just cannot remember who it is. Advised to follow-up. He is comfortable with that plan and asking for a work note. Radiography Diagnostic Testing: Clinical Impression(s) from Imaging Studies Brain CT 12/24/24 07:07 IMPRESSION: No acute intracranial pathology. Reading [facility] Rhythm Strip Rhythm Strip: Sinus Rhythm Rate: 50 Ectopy: None EKG Initial EKG: Attestation: I personally reviewed and interpreted this EKG as follows: Interpretation: Sinus Rhythm and No Acute Injury Pattern Comments: Nml axis & intervals; nml EKG Discharge Plan Triage Chief Complaint: Headache Other Complaint: General Illness ED Provider: Rudy Sloan Dx/Rx/DC Orders Clinical Impression: Acute headache Instructions: ED Headache Unspecified Prescriptions: No Action NK Stand Alone Forms: ED Work / School Excuse Primary Care Provider: Care Physician,No Primary Referrals: Doctor,Your [Non-Staff] - 1-2 Weeks Print Language: Uzbek Disposition Disposition: Home, Self Care
--- OUTSIDE RECORDS SUMMARY | 2024-12-24 07:18 | XMS RPT_ITS | CCD ---
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 chills. HEENT: No sore throat. No neck pain. No loss of vision. No rhinorrhea. Cardiovascular: No chest pain. No palpitations. No pedal edema. Respiratory: No cough, no shortness of breath. Abdominal: No abdominal pain. No nausea. No vomiting. Genitourinary: No dysuria. No hematuria. Musculoskeletal: No myalgias. Inability to flex or extend right fifth digit, positive swelling. Positive tenderness. Neurologic: No headaches. No dizziness. No lightheadedness. Skin: No rash. Positive ecchymosis to right fifth digit. Psychiatric: No depression. No anxiety. EXAM Physical Exam Narrative Exam Narrative: Afebrile. Vital signs noted. HEENT: Normocephalic. Atraumatic. PERRL, EOMI. Neck soft and supple. No point tenderness or step off. Cardiovascular: Regular rate and rhythm. No murmurs, rubs, or gallops appreciated. Respiratory: No tachypnea. Lungs clear to auscultation bilaterally. Gastrointestinal: Abdomen soft, nontender, with normoactive bowel sounds. No rebound or guarding. Neurological: Awake. Alert. Nonfocal, nonlateralizing. Skin: No rash. Normal color. No pallor. Musculoskeletal: No pedal edema. Decreased range of motion fifth digit on right hand. Good capillary refill distally. Positive swelling and ecchymosis. Tenderness diffusely but especially at PIP joint. Const Vital Signs: 07/10/23 16:34 Temperature 97.6 F L Temperature Source Temporal Pulse Rate 63 Respiratory Rate 14 Blood Pressure 148/90 H Blood Pressure Mean 109 Pulse Ox 100 Oxygen Delivery Method Room Air MDM MDM MDM Narrative Medical decision making narrative: Concern is for fracture of fifth digit along with dislocation with incomplete relocation. He may have torn tendons as well. He declined any analgesics here in the emergency department. X-rays were obtained of the fifth digit in 3 views. On my individual interpretation there is a subtle fracture at the PIP joint on the volar aspect of the proximal phalanx. I reviewed the radiology report which comments on a volar plate fracture. At this point in time, I discussed patient with Dr. Perez with orthopedics who agrees with aluminum foam splint, and follow-up with hand surgery. He was referred to 2 different hand surgeons in the [place] area for follow-up within a week. I offered to write him for stronger pain medications but he declined and would like to take [id number] analgesics. He will continue ice and elevation at home. I feel he can be discharged to follow-up. Return instructions to the emergency department were reviewed. Disposition is discharged home in stable condition. Management Discussion w/another healthcare provider: Manual Machinist (Dr. Perez, Orthopaedics) Discharge Plan Triage Chief Complaint: Upper Extremity Injury ED Provider: Pio Erickson Dx/Rx/DC Orders Clinical Impression: Dislocation, finger, Fracture of finger of right hand Instructions: ED Fracture, Finger, Closed Prescriptions: No Action NK Primary Care Provider: Care Physician,No Primary Referrals: JANET QUINTANILLA MD [Non-Staff] - 1 Week Princess Colón MD [Non-Staff] - 1 Week Care Physician,No Primary [Primary Care Provider] - Activity Restrictions/Addition al Instructions: Follow-up w (more content not included)... Normal [facility] Finger(s) Min 2 Viewson 06-17 Finger(s) Min [address] [facility] Imaging Services [address] [place] [address] Finger(s) Min 2 Views MR#: [id number] Acct: [id number] Name: ALEXANDREA BRYANT II Rep #: [id number] : 1995 M 28 From: James Luke PCP: Care Physician,No Primary Status: REG ER Study: Finger(s) Min 2 Views Date of Exam: 07/10/23 Exam# [id number] Ordering Dr: Pio Erickson MD [id number] EXAM: XR RIGHT FINGERS, 2 OR MORE VIEWS CLINICAL INDICATION: Trauma -- 5th digit TECHNIQUE: Frontal, lateral and oblique views of the fingers of the right hand. COMPARISON: No relevant prior studies available. FINDINGS: BONES/JOINTS: Unremarkable. No acute fracture. No subluxation. Normal alignment. Preservation of the joint space. No sclerotic or destructive changes observed. SOFT TISSUES: Soft tissue swelling around the fifth digit. Acute volar plate fracture of the base of the fifth proximal phalanx. RAD/Finger(s) Min 2 Views IMPRESSION: Soft tissue swelling around the fifth digit. Acute volar plate fracture of the base of the fifth proximal phalanx. Electronically Signed: James Reagan MD at 17:37 EST Reading Location ID and State: [facility] / [place] , Service support , CC: Dr. Pio Erickson MD; No Primary Care Physician Director Of Infection Prevention: Signed Normal [facility] XR WRIST GENERAL 3V PA/LAT/O BL RIGHTon 02-01-2023 [facility] XR Wrist - right PA and Late ral and Obliqueon 02-01-2023 IMPRESSION: No radiographic evidence of acute osseous injury Director Of Infection Prevention: PSCB Transcribe Date/Time: Feb 01 2023 12:12P Dictated by : ANDRE LEAL MD This examination was interpreted and the report reviewed and electronically signed by: ANDRE LEAL MD on Feb 01 2023 12:16PM [facility] DIVISION OF RADIOLOGY * * *Final Report* * * DATE OF EXAM: Feb 01 2023 12:09PM WOX 5271 - XR WRIST 3V PA/LAT/OBL RT / PROCEDURE REASON: Wrist pain, right * * * * Physician Interpretation * * * * TITLE: XR WRIST 3V PA/LAT/OBL RT CLINICAL INDICATION: Wrist pain TECHNIQUE: 3 view radiographic study of the right breast COMPARISON: Radiograph dated February 11, 2019 FINDINGS: No acute fracture or dislocation identified. Joint spaces preserved. DIVISION OF RADIOLOGY Provider, [facility] - 02/01/2023 * * *Final Report* * * DATE OF EXAM: Feb 01 2023 12:09PM WOX 5271 - XR WRIST 3V PA/LAT/OBL RT / PROCEDURE REASON: Wrist pain, right * * * * Physician Interpretation * * * * TITLE: XR WRIST 3V PA/LAT/OBL RT CLINICAL INDICATION: Wrist pain TECHNIQUE: 3 view radiographic study of the right breast COMPARISON: Radiograph dated February 11, 2019 FINDINGS: No acute fracture or dislocation identified. Joint spaces preserved. IMPRESSION IMPRESSION: No radiographic evidence of acute osseous injury Director Of Infection Prevention: PSCB Transcribe Date/Time: Feb 01 2023 12:12P Dictated by : ANDRE LEAL MD This examination was interpreted and the report reviewed and electronically signed by: ANDRE LEAL MD on Feb 01 2023 12:16PM EST [facility] Radiology Study observation (narrative) Martha luke [facility] XR Wrist - right PA and Late ral and ObliqueOrdered By: Ccf Provider on 02-01-2023 [facility] Absolute lymphocyte countOrd ered By: Dr. Johnson on 08-04-2022 Lymphocytes Auto (Unsp spec) [#/Vol] 1.82 10*3/uL 0.83-4.51 [facility] Basophil percentageOrdered B y: Dr. Johnson on 08-04-2022 Basophils/100 WBC (Bld) 0.5 % 0-1 [facility] Chloride [Moles/Vol] 106 mmol/L 98-107 [facility] Eosinophils/100 WBC (Bld) 0.8 % 0-5 [facility] Glucose [Mass/Vol] 84 mg/dL 74-106 [facility] Neutrophils (Bld) [#/Vol] 3.8 10*3/uL 2.0-7.7 [facility] Neutrophils/100 WBC (Bld) 61.5 % 47-70 [facility] Potassium [Moles/Vol] 4.1 mmol/L 3.5-5.1 [facility] Sodium [Moles/Vol] 141 mmol/L 136-145 [facility] WBC (Bld) [#/Vol] 6.1 10*3/uL 4.4-11.0 [facility] Blood erythrocytes count (nu mber/volume)Ordered By: Dr. Johnson on 08-04-2022 RBC (Bld) [#/Vol] 5.03 10*6/uL 4.6-6.2 [facility] Blood hemoglobin measurement (mass/volume)Ordered By: Dr. Johnson on 08-04-2022 Hemoglobin (Bld) [Mass/Vol] 15.3 g/dL 13.0-16.5 [facility] Blood lymphocytes/100 leukoc ytesOrdered By: Dr. Johnson on 08-04-2022 Lymphocytes/100 WBC (Bld) 29.8 % 19-41 [facility] Blood monocytes/100 leukocyt esOrdered By: Dr. Johnson on 08-04-2022 Monocytes/100 WBC (Bld) 7.2 % 0-10 [facility] Blood platelet mean volumeOr dered By: Dr. Johnson on 08-04-2022 Platelet mean volume (Bld) [Entitic vol] 10.0 fL 6.2-12.0 [facility] Determination of erythrocyte mean corpuscular volume (MCV)Ordered By: Dr. Johnson on 08-04-2022 MCV (RBC) [Entitic vol] 92.4 fL 80-94 [facility] Hematocrit Auto (Bld) [Volum e fraction]Ordered By: Dr. Johnson on 08-04-2022 Hematocrit (Bld) [Volume fraction] 46.5 % 40-54 [facility] Laboratory - Chemistry and C hemistry - challengeOrdered By: Dr. Johnson on 08-04-2022 CO2 [Moles/Vol] 31.0 mmol/L 21.0-32.0 [facility] Urea nitrogen/Creatinine [Mass ratio] 14.5 mg/mg 10-20 [facility] Laboratory - Hematology and Cell countsOrdered By: Dr. Johnson on 08-04-2022 Erythrocyte distribution width (RBC) [Entitic vol] 41.6 fL 35.1-43.9 [facility] Erythrocyte distribution width (RBC) [Ratio] 12.3 % 11.6-14.6 [facility] Immature granulocytes/100 WBC (Bld) 0.200 % 0.0-0.9 [facility] Comment on above: IG% - Immature Granu locytes (promyelocytes, myelocytes and metamyelocytes) > 1% indicates that a LEFT SHIFT is Present. MCH (RBC) [Entitic mass] 30.4 pg 27.0-32.0 [facility] Nucleated RBC/100 WBC (Bld) [Ratio] 0 % 0-5 [facility] MCHC Auto (RBC) [Mass/Vol]Or dered By: Dr. Johnson on 08-04-2022 MCHC (RBC) [Mass/Vol] 32.9 g/dL 32-36 [facility] No Panel InformationOrdered By: Dr. Johnson on 08-04-2022 Troponin I High Sensitivity 3 pg/mL 3.0-78.0 [facility] Comment on above: Please Note: New Nora t Units and Gender Specific Reference Ranges. For more information see Policy Stat Procedure [place] High Sensitivity Troponin (TNIH) and attachments. D-Dimer Quantitative (PE/DVT) < 0.27 FEU/ug/m 0.27-0.49 [facility] Comment on above: NORMAL D-Dimer level (<0.50) indicates no DVT or PE. Estimated Creatinine Clearance Calc 124.58 ml/min [facility] Estimated GFR (MDRD) Amer 120 mL/min >60 [facility] Comment on above: GFR Calc Estimated GFR (MDRD) Non-Af Amer 99 mL/min >60 [facility] Comment on above: Non- GFR Calc Platelets bldOrdered By: Dr. Johnson on 08-04-2022 Platelets (Bld) [#/Vol] 310 10*3/uL 150-450 [facility] Serum or plasma calcium fabiana urement (mass/volume)Ordered By: Dr. Johnson on 08-04-2022 Calcium [Mass/Vol] 9.7 mg/dL 8.5-10.1 [facility] Serum or plasma creatinine m easurement (mass/volume)Ordered By: Dr. Johnson on 08-04-2022 Creatinine [Mass/Vol] 0.96 mg/dL 0.70-1.30 [facility] Comment on above: The validity of the calculated GFR & GFRAA in patients over 70 years has not been determined. Clinical correlation is essential. Serum or plasma urea nitroge n measurement (mass/volume)Ordered By: Dr. Johnson on 08-04-2022 Urea nitrogen [Mass/Vol] 14 mg/dL 7-18 [facility] Thin prep Papanicolaou smear with manual screeningOrdered By: Dr. Johnson on 08-04-2022 Thin prep Papanicolaou smear with manual screening 4 5-15 [facility] XR Chest PA and Lateralon IMPRESSION: No acute radiographic abnormality. Director Of Infection Prevention: PSCB Transcribe Date/Time: Jun 10 2021 9:34A Dictated by : DAVID VARGHESE DO This examination was interpreted and the report reviewed and electronically signed by: DAVID VARGHESE DO on Jun 10 2021 11:02AM [facility] DIVISION OF RADIOLOGY * * *Final Report* * * DATE OF EXAM: Jun 10 2021 9:32AM WOX 5291 - XR CHEST 2V FRONTAL/LAT / PROCEDURE REASON: Cough * * * * Physician Interpretation * * * * EXAMINATION: CHEST RADIOGRAPH (2 VIEW FRONTAL & LATERAL) PATIENT/TECHNOLOGIST PROVIDED HISTORY: Covid positive x 14 days ago, Cough and shortness of breath CLINICAL INFORMATION: 26 years old Male with Cough post cough x 2 weeks MQ: XC2_6 EXAM DATE/TIME: 06/10/2021 9:32 AM COMPARISON: No relevant prior studies available. RESULT: Lines, tubes, and devices: None. Lungs and pleura: No focal consolidation. No pleural effusion or pneumothorax. Cardiomediastinal silhouette: Normal cardiomediastinal silhouette. Bones and soft tissues: Unremarkable. DIVISION OF RADIOLOGY Provider, [facility] - 06/10/2021 * * *Final Report* * * DATE OF EXAM: Jun 10 2021 9:32AM WOX 5291 - XR CHEST 2V FRONTAL/LAT / PROCEDURE REASON: Cough * * * * Physician Interpretation * * * * EXAMINATION: CHEST RADIOGRAPH (2 VIEW FRONTAL & LATERAL) PATIENT/TECHNOLOGIST PROVIDED HISTORY: Covid positive x 14 days ago, Cough and shortness of breath CLINICAL INFORMATION: 26 years old Male with Cough post cough x 2 weeks MQ: XC2_6 EXAM DATE/TIME: 06/10/2021 9:32 AM COMPARISON: No relevant prior studies available. RESULT: Lines, tubes, and devices: None. Lungs and pleura: No focal consolidation. No pleural effusion or pneumothorax. Cardiomediastinal silhouette: Normal cardiomediastinal silhouette. Bones and soft tissues: Unremarkable. IMPRESSION IMPRESSION: No acute radiographic abnormality. Director Of Infection Prevention: AMANDA Transcribe Date/Time: Jun 10 2021 9:34A Dictated by : DAVID VARGHESE DO This examination was interpreted and the report reviewed and electronically signed by: DAVID VARGHESE DO on Jun 10 2021 11:02AM EST [facility] Radiology Study observation (narrative) Martha Tolbert XR Chest PA and LateralOrder ed By: Ccf Provider on 06-10-2021 [facility] Vital Signs Date Time Vital Sign Value Performing Clinician Facility 06-07-2024 16:09-0500 Body mass index (BMI) [Ratio] 23.44 kg/m2 Edmond Brunner MD Work Phone: [facility] 06-07-2024 16:09-0500 Body temperature 99.1 [degF] Edmond Brunner MD Work Phone: [facility] 06-07-2024 16:09-0500 Body weight 82.8 kg Edmond Brunner MD Work Phone: [facility] 06-07-2024 16:09-0500 Diastolic blood pressure 82 mm[Hg] Edmond Brunner MD Work Phone: [facility] 06-07-2024 16:09-0500 Heart rate 70 /min Edmond Brunner MD Work Phone: [facility] 06-07-2024 16:09-0500 Respiratory rate 19 /min Edmond Brunner MD Work Phone: [facility] 06-07-2024 16:09-0500 SaO2% (BldA) [Mass fraction] 98 % Edmond Brunner MD Work Phone: [facility] 06-07-2024 16:09-0500 Systolic blood pressure 120 mm[Hg] Edmond Brunner MD Work Phone: [facility] 07-10-2023 16:34-0500 Body height 187.96 cm No Primary Care Physician [facility] 07-10-2023 16:34-0500 Body mass index (BMI) [Ratio] 23.6 kg/m2 No Primary Care Physician [facility] 07-10-2023 16:34-0500 Body temperature 97.6 [degF] No Primary Care Physician [facility] 07-10-2023 16:34-0500 Body weight 83.57 kg No Primary Care Physician [facility] 07-10-2023 16:34-0500 Diastolic blood pressure 90 mm[Hg] No Primary Care Physician [facility] 07-10-2023 16:34-0500 Heart rate 63 /min No Primary Care Physician [facility] 07-10-2023 16:34-0500 Respiratory rate 14 /min No Primary Care Physician [facility] 07-10-2023 16:34-0500 SaO2% (BldA) [Mass fraction] 100 % No Primary Care Physician [facility] 07-10-2023 16:34-0500 Systolic blood pressure 148 mm[Hg] No Primary Care Physician [facility] 02-01-2023 11:37-0400 Body temperature 97.39 [degF] Sherrill Luo CORRECTIONAL THERAPY TEACHER.CHIEF DISPATCHER SERVICE Work Phone: [facility] 02-01-2023 11:37-0400 Body weight 81.28 kg Sherrill Luo CORRECTIONAL THERAPY TEACHER.CHIEF DISPATCHER SERVICE Work Phone: [facility] 02-01-2023 11:37-0400 Diastolic blood pressure 74 mm[Hg] Sherrill Luo CORRECTIONAL THERAPY TEACHER.CHIEF DISPATCHER SERVICE Work Phone: [facility] 02-01-2023 11:37-0400 Heart rate 67 /min Sherrill Luo CORRECTIONAL THERAPY TEACHER.CHIEF DISPATCHER SERVICE Work Phone: [facility] 02-01-2023 11:37-0400 Respiratory rate 18 /min Sherrill Luo CORRECTIONAL THERAPY TEACHER.CHIEF DISPATCHER SERVICE Work Phone: [facility] 02-01-2023 11:37-0400 SaO2% (BldA) [Mass fraction] 97 % Sherrill Luo CORRECTIONAL THERAPY TEACHER.CHIEF DISPATCHER SERVICE Work Phone: [facility] 02-01-2023 11:37-0400 Systolic blood pressure 138 mm[Hg] Sherrill Luo CORRECTIONAL THERAPY TEACHER.CHIEF DISPATCHER SERVICE Work Phone: [facility] 10-14-2022 09:42-0400 Body height 188 cm Estefanía Queden CORRECTIONAL THERAPY TEACHER.CHIEF DISPATCHER SERVICE Work Phone: [facility] 10-14-2022 09:42-0400 Body temperature 97.7 [degF] Estefanía Queden CORRECTIONAL THERAPY TEACHER.CHIEF DISPATCHER SERVICE Work Phone: [facility] 10-14-2022 09:42-0400 Body weight 84.37 kg Estefanía Queden CORRECTIONAL THERAPY TEACHER.CHIEF DISPATCHER SERVICE Work Phone: [facility] 10-14-2022 09:42-0400 Diastolic blood pressure 60 mm[Hg] Estefanía Queden CORRECTIONAL THERAPY TEACHER.CHIEF DISPATCHER SERVICE Work Phone: [facility] 10-14-2022 09:42-0400 Heart rate 65 /min Estefanía Vo CORRECTIONAL THERAPY TEACHER.CHIEF DISPATCHER SERVICE Work Phone: [facility] 10-14-2022 09:42-0400 SaO2% (BldA) [Mass fraction] 98 % Estefanía Vo CORRECTIONAL THERAPY TEACHER.CHIEF DISPATCHER SERVICE Work Phone: [facility] 10-14-2022 09:42-0400 Systolic blood pressure 110 mm[Hg] Estefanía Vo CORRECTIONAL THERAPY TEACHER.CHIEF DISPATCHER SERVICE Work Phone: [facility] 08-04-2022 22:17-0400 Diastolic blood pressure 68 mm[Hg] No Primary Care Physician [facility] 08-04-2022 22:17-0400 Heart rate 57 /min No Primary Care Physician [facility] 08-04-2022 22:17-0400 Respiratory rate 18 /min No Primary Care Physician [facility] 08-04-2022 22:17-0400 SaO2% (BldA) [Mass fraction] 100 % No Primary Care Physician [facility] 08-04-2022 22:17-0400 Systolic blood pressure 121 mm[Hg] No Primary Care Physician [facility] 08-04-2022 14:30-0400 Body height 187.96 cm No Primary Care Physician [facility] 08-04-2022 14:30-0400 Body mass index (BMI) [Ratio] 21.5 kg/m2 No Primary Care Physician [facility] 08-04-2022 14:30-0400 Body temperature 97 [degF] No Primary Care Physician [facility] 08-04-2022 14:30-0400 Body weight 76.2 kg No Primary Care Physician [facility] Encounters Encounter Date Encounter Type Care Provider Facility Start: 06-14-2024 End: 06-14-2024 ambulatory Estefanía Vo APRN.CHIEF DISPATCHER SERVICE Work Phone: [facility] Start: 06-14-2024 End: 06-14-2024 Follow-up encounter Estefanía Vo APRN.CHIEF DISPATCHER SERVICE Work Phone: [facility] Comment on above: ED Follow-up ([facility] ED 06/08/2024) Start: 06-12-2024 End: 06-12-2024 ambulatory Estefanía Vo APRN.CNP Work Phone: [facility] Comment on above: ED OUTREACH (ED OUTR EACH/SECTION /06/08/2024) Start: 06-08-2024 End: 06-09-2024 Emergency department patient visit No Primary Care Physician Facility:[facility] Start: 06-07-2024 End: 06-07-2024 Patient encounter procedure Edmond Brunner MD Work Phone: [facility] Comment on above: Acute cough (Primary Dx) Start: 06-07-2024 End: 06-07-2024 ambulatory ESTEFANÍA VO Facility:[facility] Start: 06-07-2024 End: 06-07-2024 Subsequent hospital visit by physician Xr [facility] Work Phone: Radiology Comment on above: Acute cough [R05.1] Start: 10-31-2023 ambulatory [place] [facility] [employer] Start: 10-28-2023 End: 10-29-2023 Emergency department patient visit Prabhjotglory Duran Facility:[facility] Start: 07-12-2023 ambulatory Lyubov Stratton [facility] Comment on above: ED OUTREACH (ED OUTR EACH/SECTION /07/10/2023) Start: 07-10-2023 End: 07-10-2023 Emergency department patient visit No Primary Care Physician [facility] Work Phone: Start: 04-28-2023 End: 04-28-2023 Patient encounter procedure No Primary Care Physician [facility] Work Phone: Start: 02-01-2023 End: 02-01-2023 Subsequent hospital visit by physician Florina [facility] Work Phone: Radiology Comment on above: Wrist pain, right [M 25.531] Start: 02-01-2023 End: 02-01-2023 Patient encounter procedure Sherrill Luo CORRECTIONAL THERAPY TEACHER.CHIEF DISPATCHER SERVICE Work Phone: [facility] Comment on above: Wrist pain, right (P rimary Dx); Fall on same level from slipping, tripping or stumbling, initial encounter Start: 10-14-2022 Telephone encounter Estefanía Vo CORRECTIONAL THERAPY TEACHER.CHIEF DISPATCHER SERVICE Work Phone: [facility] Comment on above: Patient Update Start: 10-14-2022 End: 10-14-2022 Patient encounter procedure Estefanía Vo CORRECTIONAL THERAPY TEACHER.CHIEF DISPATCHER SERVICE Work Phone: [facility] Comment on above: First degree heart b lock (Primary Dx); Incomplete right bundle branch block (RBBB) determined by electrocardiography; Near syncope Start: 08-04-2022 End: 08-04-2022 [facility] department [facility] Start: 08-04-2022 End: 08-04-2022 Patient encounter procedure Edmond Brunner MD Work Phone: [facility] Comment on above: Near syncope (Primar y Dx) Start: 07-22-2022 End: 07-22-2022 Patient encounter procedure No Primary Care Physician [facility] Start: 06-10-2021 End: 06-10-2021 Subsequent hospital visit by physician Florina [facility] Work Phone: Radiology Comment on above: Cough [R05.9] Procedures Date Procedure Procedure Detail Performing Clinician Start: 06-07-2024 Radiologic exam ches t 2 views Edmond Brunner MD Work Phone: Start: 07-10-2023 Diagnostic radiograp hy of finger No Primary Care Physician Start: 02-01-2023 Radex wrist complete minimum 3 views Sherrill Luo APRN.CHIEF DISPATCHER SERVICE Work Phone: Start: 08-04-2022 Plain chest X-ray No Pr [facility] Care Physician Start: 08-04-2022 CT of head without contrast No Primary Care Physician Start: 06-10-2021 Radiologic exam ches t 2 views Telma Fregoso CORRECTIONAL THERAPY TEACHER.CHIEF DISPATCHER SERVICE Work Phone: Plan of Treatment Date Care Activity Detail Author Start: 10-15-2031 Urine microalbumin profile [facility] Start: 01-15-2024 Covid-19 Vaccine ( season) Covid-19 Vaccine () [facility] Start: 01-15-2024 Covid-19 Vaccine () Covid-19 Vaccine () [facility] Start: 01-15-2024 Influenza vaccination [facility] Start: 11-28-2023 End: 11-28-2023 Patient encounter procedure 11/28/2023 3:00 PM EDT Office Visit Cardiology [address] [place] [id number] Adirano Santoro MD [address] [facility] [address] [place], [place] [id number] Establish as a new patient Cardiology Comment on above: Establish as a new patient Start: 10-15-2023 COVID-19 VACCINE (#1) COVID-19 VACCINE (#1) [facility] Comment on above: Postponed from 1995 (Declined at t his time) Start: 07-10-2023 [facility] Start: 05-16-2023 Behavioral Health Screening Behavioral Health Screening [facility] Start: 05-16-2023 Depression Assessment Depression Assessment [facility] Start: 01-14-2023 Covid-19 Vaccine ( season) Covid-19 Vaccine () [facility] Start: 01-14-2023 Influenza vaccination [facility] Start: 05-16-2022 DEPRESSION ASSESSMENT DEPRESSION ASSESSMENT [facility] Start: 01-14-2022 Influenza vaccination INFLUENZA (#1) [facility] Start: 10-20-2016 Urine microalbumin profile DTAP,TDAP,TD (7 - Td or Tdap) [facility] Start: 2013 Anxiety Screening Anxiety Screening [facility] Start: 2013 Depression Screening Depression Screening [facility] Start: 2013 HEPATITIS C SCREENING HEPATITIS C SCREENING [facility] Start: 2013 Hepatitis C screening Hepatitis C Screening [facility] Start: 2013 HIV SCREENING HIV SCREENING [facility] Start: 2013 HIV screening HIV Screening [facility] Start: 11-16-2011 HPV Vaccine (2 - Male 3-dose series) HPV Vaccine (2 - Male 3-dose series) [facility] Start: 1995 COVID-19 VACCINE (#1) COVID-19 VACCINE (#1) [facility] COVID & INFLUENZA A/ B & RSV PCR, ROUTINE COVID & INFLUENZA A/B & RSV PCR, ROUTINE Microbiology Routine Acute cough Ordered: 06/07/2024 [facility] Work Phone: Comment on above: Ordered: 06/07/2024 ECG B/O WO INTERP (M ED OFFICE) ECG B/O WO INTERP (MED OFFICE) ECG Routine Incomplete right bundle branch block (RBBB) determined by electrocardiography Ordered: 10/14/2022 [facility] Work Phone: Comment on above: Ordered: 10/14/2022 End: 10-15-2023 Echocardiography ECHO Cardiology Routine First degree heart block Incomplete right bundle branch block (RBBB) determined by electrocardiography Near syncope 1 Occurrences starting 10/14/2022 until 10/15/2023 [facility] Work Phone: Comment on above: 1 Occurrences starting 10/14/2022 until 10/15/2023 Patient Education [facility] Work Phone: Patient referral [facility] Work Phone: [facility] Immunizations Immunization Date Immunization Notes Care Provider Che bardales 10-14-2021 diphtheria, tetanus toxoids and acellular pertussis vaccine, Haemophilus influenzae type b conjugate, and poliovirus vaccine, inactivated ([id number]) Estefanía Vo APRN.CNP Work Phone: [facility] 02-08-2021 tetanus toxoid, redu adeola diphtheria toxoid, and acellular pertussis vaccine, adsorbed No Primary Care Physician [facility] 10-19-2011 human papilloma viru s vaccine, quadrivalent Edmond Brunner MD Work Phone: [facility] 10-19-2011 Meningococcal, MCV4, unspecified conjugate formulation(groups A, C, Y and W-135) Edmond Brunner MD Work Phone: [facility] 04-02-2011 influenza virus vaccine, unspecified formulation Edmond Brunner MD Work Phone: [facility] Work Phone: 10-29-2010 hepatitis A vaccine, unspecified formulation Edmond Brunner MD Work Phone: [facility] Work Phone: 03-26-2008 hepatitis A vaccine, unspecified formulation Edmond Brunner MD Work Phone: [facility] Work Phone: 03-26-2008 influenza virus vaccine, unspecified formulation Edmond Brunner MD Work Phone: [facility] Work Phone: 10-20-2006 Meningococcal, MCV4, unspecified conjugate formulation(groups A, C, Y and W-135) Edmond Brunner MD Work Phone: [facility] Work Phone: 10-20-2006 tetanus toxoid, redu adeola diphtheria toxoid, and acellular pertussis vaccine, adsorbed Edmond Brunner MD Work Phone: [facility] Work Phone: 02-12-2000 diphtheria, tetanus toxoids and acellular pertussis vaccine Edmond Brunner MD Work Phone: [facility] Work Phone: 02-12-2000 measles, mumps and rubella virus vaccine Edmond Brunner MD Work Phone: [facility] Work Phone: 02-12-2000 poliovirus vaccine, inactivated Edmond Brunner MD Work Phone: [facility] Work Phone: 10-30-1996 diphtheria, tetanus toxoids and acellular pertussis vaccine Edmond Brunner MD Work Phone: [facility] Work Phone: 07-14-1996 chicken pox (disease) Edmond Brunner MD Work Phone: [facility] Work Phone: 06-12-1996 haemophilus influenz ae type b vaccine, HbOC conjugate Edmond Brunner MD Work Phone: [facility] Work Phone: 06-12-1996 measles, mumps and rubella virus vaccine Edmond Brunner MD Work Phone: [facility] Work Phone: 06-12-1996 trivalent poliovirus vaccine, live, oral Edmond Brunner MD Work Phone: [facility] Work Phone: 1995 diphtheria, tetanus toxoids and acellular pertussis vaccine Edmodn Brunner MD Work Phone: [facility] Work Phone: 1995 haemophilus influenz ae type b vaccine, HbOC conjugate Edmond Brunner MD Work Phone: [facility] Work Phone: 1995 trivalent poliovirus vaccine, live, oral Edmond Brunner MD Work Phone: [facility] Work Phone: 1995 diphtheria, tetanus toxoids and acellular pertussis vaccine Edmond Brunner MD Work Phone: [facility] Work Phone: 1995 haemophilus influenz ae type b vaccine, HbOC conjugate Edmond Brunner MD Work Phone: [facility] Work Phone: 1995 hepatitis B vaccine, pediatric or pediatric/adolescent dosage Edmond Brunner MD Work Phone: [facility] Work Phone: 1995 trivalent poliovirus vaccine, live, oral Edmond Brunner MD Work Phone: [facility] Work Phone: 1995 diphtheria, tetanus toxoids and acellular pertussis vaccine Edmond Brunner MD Work Phone: [facility] Work Phone: 1995 haemophilus influenz ae type b vaccine, HbOC conjugate Edmond Brunner MD Work Phone: [facility] Work Phone: 1995 hepatitis B vaccine, pediatric or pediatric/adolescent dosage Edmond Brunner MD Work Phone: [facility] Work Phone: 1995 hepatitis B vaccine, pediatric or pediatric/adolescent dosage Edmond Brunner MD Work Phone: [facility] Work Phone: Payers Date Payer Category Payer Self-pay [id number] 2023 Unknown [id number] 2021 Unknown [id number] Unknown DENISSE [id number] Unknown [facility] [id number] Unknown [id number] Unknown [id number] Unknown [id number] Social History Date Type Detail Facility Start: 09-29-2016 End: 02-01-2023 Tobacco smoking status [facility] Never smoked tobacco [facility] Start: 09-29-2016 End: 02-01-2023 Tobacco use and exposure Smokeless tobacco non-user [facility] Start: 06-10-2021 End: 12-30-2021 Alcohol intake Current non-drinker of alcohol (finding) [facility] Start: 1995 Sex Assigned At Not on file [facility] Start: 08-04-2022 End: 07-10-2023 Tobacco smoking status NHIS Unknown if ever smoked [facility] Start: 1995 Sex Assigned At Male [facility] Start: 10-14-2022 End: 06-07-2024 Alcohol intake Current drinker of alcohol (finding) [facility] Start: 10-14-2022 Alcohol Comment [facility] Start: 10-14-2022 End: 02-01-2023 History of Social function [facility] Work Phone: Start: 10-14-2022 End: 02-01-2023 Tobacco use panel [facility] Work Phone: Adult Depression Screening Assessment 0 [facility] Work Phone: Start: 05-11-2021 End: 06-10-2021 Exposure to SARS-CoV-2 (event) Not sure [facility] Mental Status Date Assessment Result Facility 08-04-2022 Cognitive function Level Of Cons ciousness Awake;Alert;Appropriate;Follow s Commands [facility] Work Phone: Clinical Notes 06-10-2021 to 06-14-2024 Honey Bay LPN - 06/14/2024 11:58 AM Lyubov Velasquez MA - 06/12/2024 2:55 PM Dino Melton RT(R) - 06/07/2024 4:40 PM Edmond Muñoz MD - 06/07/2024 4:23 PM EST Note Date & Type Note Facility 06-14-2024 Note HNO ID: [id number] Author: HONEY BAY LPN Service: ? Author Type: LICENSED NURSE Type: Progress Notes Filed: 06/14/2024 12:00 Note Text: ED Follow-Up Note Provider Action / FYI: Call completed by: ERNA Patient seen in ED: Out of Network ED Contact made with Patient: No, left message. Honey Bay LPN June 14, 2024 12:[address] [facility] 06-14-2024 History of Present illness Narrative ED Follow-Up Note Provider Action / FYI: Call completed by: ERNA Patient seen in ED: Out of Network ED Contact made with Patient: No, left message. Honey Bay LPN June 14, 2024 12:00 PM documented in this encounter [facility] 06-14-2024 Note Patient Outreach (AG FAMPLE) ALEXANDREA BRYANT II ([id number]) 1995 M Date Time Provider Department 06/14/24 ESTEFANÍA VO During your visit today, we recorded the following information about you: Honey Bay LPN 06/14/2024 12:00 PM Signed ED Follow-Up Note Provider Action / FYI: Call completed by: ERNA Patient seen in ED: Out of Network ED Contact made with Patient: No, left message. Honey Bay LPN June 14, 2024 12:00 PM Allergies As of Date: 06/14/2024 (No Known Allergies) Date Reviewed: 06/07/2024 Reviewed by: Teresa Hunter MA - Fully Assessed Reason for Visit: ED Follow-up [821] Cmt: [facility] 06/08/2024 Prescriptions as of 06/14/2024 - benzonatate (TESSALON PERLE) 100 mg capsule Take 1 capsule by mouth every 8 hours as needed for cough for up to 15 days. 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 06-12-2024 Note HNO ID: [id number] Author: LYUBOV STRATTON MA Service: ? Author Type: Case Sealer Type: Progress Notes Filed: 06/12/2024 14:56 Note Text: ED Follow Up: Patient discharged from [facility] ED on 06/08/2024. 1. How are you feeling since your ED visit? NA Have your symptoms improved or resolved? Not applicable 2. Were you prescribed any medications while in the ED or advised to stop any medication? Not applicable - If yes, were you able to fill your prescriptions? Not applicable -if stopped medication, what was the medication? NA 3. Were you advised to schedule a follow up appointment with your provider? Not applicable - If no, Do you feel like you need an appointment scheduled? Not applicable - If yes, Do you need this scheduled now or has this already been scheduled? Not applicable 4. Were you able to contact the office or linux consultant provider prior to your ED visit? Not applicable 5. Is there anything else I can do for you today? Not applicable Left message on patients vm to contact office if he needs anything. Lyubov Stratton MA [facility] 06-12-2024 History of Present illness Narrative ED Follow Up: Patient discharged from [facility] ED on 06/08/2024. 1. How are you feeling since your ED visit? NA Have your symptoms improved or resolved? Not applicable 2. Were you prescribed any medications while in the ED or advised to stop any medication? Not applicable - If yes, were you able to fill your prescriptions? Not applicable -if stopped medication, what was the medication? NA 3. Were you advised to schedule a follow up appointment with your provider? Not applicable - If no, Do you feel like you need an appointment scheduled? Not applicable - If yes, Do you need this scheduled now or has this already been scheduled? Not applicable 4. Were you able to contact the office or linux consultant provider prior to your ED visit? Not applicable 5. Is there anything else I can do for you today? Not applicable Left message on patients vm to contact office if he needs anything. Lyubov Stratton MA documented in this encounter [facility] 06-12-2024 Note Patient Outreach (AG FAMPLE) ALEXANDREA BRYANT II ([id number]) 1995 M Date Time Provider Department 06/12/24 ESTEFANÍA VO During your visit today, we recorded the following information about you: Lyubov Stratton MA 06/12/2024 2:56 PM Signed ED Follow Up: Patient discharged from [facility] ED on 06/08/2024. 1. How are you feeling since your ED visit? NA Have your symptoms improved or resolved? Not applicable 2. Were you prescribed any medications while in the ED or advised to stop any medication? Not applicable - If yes, were you able to fill your prescriptions? Not applicable -if stopped medication, what was the medication? NA 3. Were you advised to schedule a follow up appointment with your provider? Not applicable - If no, Do you feel like you need an appointment scheduled? Not applicable - If yes, Do you need this scheduled now or has this already been scheduled? Not applicable 4. Were you able to contact the office or linux consultant provider prior to your ED visit? Not applicable 5. Is there anything else I can do for you today? Not applicable Left message on patients vm to contact office if he needs anything. Lyubov Stratton MA Allergies As of Date: 06/12/2024 (No Known Allergies) Date Reviewed: 06/07/2024 Reviewed by: Teresa Hunter MA - Fully Assessed Reason for Visit: ED OUTREACH [Other] Cmt: ED OUTREACH [facility] 06/08/2024 Prescriptions as of 06/12/2024 - benzonatate (TESSALON PERLE) 100 mg capsule Take 1 capsule by mouth every 8 hours as needed for cough for up to 15 days. 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 06-07-2024 History of Present illness Narrative Radiology Service Progress Note PATIENT NAME: Alexandrea Bryant II DATE OF SERVICE: June 07, 2024 TIME: 4:47 PM PATIENT IDENTITY VERIFICATION COMPLETED USING TWO (2) IDENTIFIERS: Name and Date of confirmed by patient verbally. FALL SCREENING: Has the patient had 2 falls in the last year or 1 fall with injury or currently using an Ambulatory Assistive Device (Walker, Cane, Wheelchair, Crutches, etc.)? No PATIENT GENDER DATA: Assigned male at PATIENT RELEVANT IMPLANT DATA REVIEWED: Yes PATIENT PRESENTS WITH AN IMPLANTABLE OR ATTACHED E COMMERCE SPECIALIST: No RADIOLOGY DEPARTMENT: General X-ray: Exam(s) Completed: Chest X-Ray PERIPHERAL IV DATA: Not applicable SIGNED BY: RT Carole(R) June 07, 2024 4:47 PM documented in this encounter [facility] 06-07-2024 Note HNO ID: [id number] Author: DINO MENDOZA RT(R) Service: ? Author Type: Gmat Tutor Type: Progress Notes Filed: 06/07/2024 16:52 Note Text: Radiology Service Progress Note PATIENT NAME: Alexandrea Bryant II DATE OF SERVICE: June 07, 2024 TIME: 4:47 PM PATIENT IDENTITY VERIFICATION COMPLETED USING TWO (2) IDENTIFIERS: Name and Date of confirmed by patient verbally. FALL SCREENING: Has the patient had 2 falls in the last year or 1 fall with injury or currently using an Ambulatory Assistive Device (Walker, Cane, Wheelchair, Crutches, etc.)? No PATIENT GENDER DATA: Assigned male at PATIENT RELEVANT IMPLANT DATA REVIEWED: Yes PATIENT PRESENTS WITH AN IMPLANTABLE OR ATTACHED E COMMERCE SPECIALIST: No RADIOLOGY DEPARTMENT: General X-ray: Exam(s) Completed: Chest X-Ray PERIPHERAL IV DATA: Not applicable SIGNED BY: RT Carole(R) June 07, 2024 4:[address] [facility] 06-07-2024 Note HNO ID: [id number] Author: EDMOND BRUNNER MD Service: ? Author Type: Physician Type: Progress Notes Filed: 06/07/2024 17:10 Note Text: 1Patient presents with: Cough: SHAHID, fever x 1 week HPI: Feeling sick for 1 week. Having fevers for the last 3 days. Exposed to multiple coworkers with pneumonia and COVID over the last 2 weeks. Positive symptoms: Cough, Fever, Headache, Chest pains with coughing, Sore throat, Negative symptoms: Shortness of breath, Nasal Congestion, Rhinorrhea, Vomiting, Diarrhea, OTC: Mucinex, Tylenol MEDICATIONS: No current outpatient medications on file. No current facility-administered medications for this visit. ALLERGIES: ALLERGIES No Known Allergies VITALS: BP 120/82 Pulse 70 Temp 37.3 ?C (99.1 ?F) Resp 19 Wt 82.8 kg (182 lb 8.7 oz) SpO2 98% BMI 23.44 kg/m? PHYSICAL EXAM: GEN: mildly ill appearing HEENT: PERRL, EOMI, conjunctiva clear Ears: canals clear. TMs without erythema, bulge, or effusion Sinuses: non-tender frontal sinus, non-tender maxillary sinuses Throat: moist mucous membranes, mild erythema, no exudate Neck: supple, no thyromegaly, no lymphadenopathy HEART: regular rate, regular rhythm, no murmurs LUNGS: few right lower lung wheezes, no increased WOB ASSESSMENT/PLAN: 1. Acute cough - ICD9: 786.2, ICD10: R05.1 - XR CHEST 2V FRONTAL/LAT - negative - suspect viral URI with exposure to COVID. - Discussed supportive care treatment with rest, cold medicine, and analgesia. Rx tessalon. - COVID AND INFLUENZA A/B AND RSV PCR, ROUTINE Follow up with worsening cough, worsening shortness of breath, increasing chest pain, or late onset fever. Edmond Brunner MD [facility] 06-07-2024 History of Present illness Narrative 1Patient presents with: Cough: SHAHID, fever x 1 week HPI: Feeling sick for 1 week. Having fevers for the last 3 days. Exposed to multiple coworkers with pneumonia and COVID over the last 2 weeks. Positive symptoms: Cough, Fever, Headache, Chest pains with coughing, Sore throat, Negative symptoms: Shortness of breath, Nasal Congestion, Rhinorrhea, Vomiting, Diarrhea, OTC: Mucinex, Tylenol MEDICATIONS: No current outpatient medications on file. No current facility-administered medications for this visit. ALLERGIES: ALLERGIES No Known Allergies VITALS: BP 120/82 Pulse 70 Temp 37.3 C (99.1 F) Resp 19 Wt 82.8 kg (182 lb 8.7 oz) SpO2 98% BMI 23.44 kg/m PHYSICAL EXAM: GEN: mildly ill appearing HEENT: PERRL, EOMI, conjunctiva clear Ears: canals clear. TMs without erythema, bulge, or effusion Sinuses: non-tender frontal sinus, non-tender maxillary sinuses Throat: moist mucous membranes, mild erythema, no exudate Neck: supple, no thyromegaly, no lymphadenopathy HEART: regular rate, regular rhythm, no murmurs LUNGS: few right lower lung wheezes, no increased WOB ASSESSMENT/PLAN: 1. Acute cough - ICD9: 786.2, ICD10: R05.1 - XR CHEST 2V FRONTAL/LAT - negative - suspect viral URI with exposure to COVID. - Discussed supportive care treatment with rest, cold medicine, and analgesia. Rx tessalon. - COVID & INFLUENZA A/B & RSV PCR, ROUTINE Follow up with worsening cough, worsening shortness of breath, increasing chest pain, or late onset fever. Edmond Brunner MD documented in this encounter [facility] 10-31-2023 Note HNO ID: [id number] Author: HONEY BAY LPN Service: ? Author Type: LICENSED NURSE Type: Progress Notes Filed: 10/31/2023 15:21 Note Text: ED Follow Up: Patient discharged from [facility] ED on 10/28/2023. 1. How are you feeling since your ED visit? Better Have your symptoms improved or resolved? Yes 2. Were you prescribed any medications while in the ED or advised to stop any medication? No - If yes, were you able to fill your prescriptions? Not applicable -if stopped medication, what was the medication? na 3. Were you advised to schedule a follow up appointment with your provider? Yes - If no, Do you feel like you need an appointment scheduled? Not applicable - If yes, Do you need this scheduled now or has this already been scheduled? No 4. Were you able to contact the office or linux consultant provider prior to your ED visit? No 5. Is there anything else I can do for you today? No [facility] 10-31-2023 History of Present illness Narrative ED Follow Up: Patient discharged from [facility] ED on 10/28/2023. 1. How are you feeling since your ED visit? Better Have your symptoms improved or resolved? Yes 2. Were you prescribed any medications while in the ED or advised to stop any medication? No - If yes, were you able to fill your prescriptions? Not applicable -if stopped medication, what was the medication? na 3. Were you advised to schedule a follow up appointment with your provider? Yes - If no, Do you feel like you need an appointment scheduled? Not applicable - If yes, Do you need this scheduled now or has this already been scheduled? No 4. Were you able to contact the office or linux consultant provider prior to your ED visit? No 5. Is there anything else I can do for you today? No ED Follow Up: Patient discharged from [facility] ED on 10/28/2023. 1. How are you feeling since your ED visit? Left message for pt to call office back. Have your symptoms improved or resolved? Left message for pt to call office back. 2. Were you prescribed any medications while in the ED or advised to stop any medication? Left message for pt to call office back. - If yes, were you able to fill your prescriptions? Left message for pt to call office back. -if stopped medication, what was the medication? Left message for pt to call office back. 3. Were you advised to schedule a follow up appointment with your provider? Left message for pt to call office back. - If no, Do you feel like you need an appointment scheduled? Left message for pt to call office back. - If yes, Do you need this scheduled now or has this already been scheduled? Left message for pt to call office back. 4. Were you able to contact the office or linux consultant provider prior to your ED visit? Left message for pt to call office back. 5. Is there anything else I can do for you today? Left message for pt to call office back. documented in this encounter [facility] 10-31-2023 Note HNO ID: [id number] Author: HONEY BAY LPN Service: ? Author Type: LICENSED NURSE Type: Progress Notes Filed: 10/31/2023 14:48 Note Text: ED Follow Up: Patient discharged from [facility] ED on 10/28/2023. 1. How are you feeling since your ED visit? Left message for pt to call office back. Have your symptoms improved or resolved? Left message for pt to call office back. 2. Were you prescribed any medications while in the ED or advised to stop any medication? Left message for pt to call office back. - If yes, were you able to fill your prescriptions? Left message for pt to call office back. -if stopped medication, what was the medication? Left message for pt to call office back. 3. Were you advised to schedule a follow up appointment with your provider? Left message for pt to call office back. - If no, Do you feel like you need an appointment scheduled? Left message for pt to call office back. - If yes, Do you need this scheduled now or has this already been scheduled? Left message for pt to call office back. 4. Were you able to contact the office or linux consultant provider prior to your ED visit? Left message for pt to call office back. 5. Is there anything else I can do for you today? Left message for pt to call office back. [facility] 10-31-2023 Note Patient Outreach (AG FAMPLE) ALEXANDREA BRYANT II ([id number]) 1995 M Date Time Provider Department 10/31/23 [place] During your visit today, we recorded the following information about you: Honey Bay LPN 10/31/2023 2:48 PM Signed ED Follow Up: Patient discharged from [facility] ED on 10/28/2023. 1. How are you feeling since your ED visit? Left message for pt to call office back. Have your symptoms improved or resolved? Left message for pt to call office back. 2. Were you prescribed any medications while in the ED or advised to stop any medication? Left message for pt to call office back. - If yes, were you able to fill your prescriptions? Left message for pt to call office back. -if stopped medication, what was the medication? Left message for pt to call office back. 3. Were you advised to schedule a follow up appointment with your provider? Left message for pt to call office back. - If no, Do you feel like you need an appointment scheduled? Left message for pt to call office back. - If yes, Do you need this scheduled now or has this already been scheduled? Left message for pt to call office back. 4. Were you able to contact the office or linux consultant provider prior to your ED visit? Left message for pt to call office back. 5. Is there anything else I can do for you today? Left message for pt to call office back. Honey Bay LPN 10/31/2023 3:21 PM Signed ED Follow Up: Patient discharged from [facility] ED on 10/28/2023. 1. How are you feeling since your ED visit? Better Have your symptoms improved or resolved? Yes 2. Were you prescribed any medications while in the ED or advised to stop any medication? No - If yes, were you able to fill your prescriptions? Not applicable -if stopped medication, what was the medication? na 3. Were you advised to schedule a follow up appointment with your provider? Yes - If no, Do you feel like you need an appointment scheduled? Not applicable - If yes, Do you need this scheduled now or has this already been scheduled? No 4. Were you able to contact the office or linux consultant provider prior to your ED visit? No 5. Is there anything else I can do for you today? 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 07-12-2023 Note HNO ID: [id number] Author: LYUBOV STRATTON MA Service: ? Author Type: Case Sealer Type: Progress Notes Filed: 07/12/2023 13:46 Note Text: ED Follow Up: Patient discharged from [facility] ED on 07/10/2023. 1. How are you feeling since your ED visit? NA Have your symptoms improved or resolved? Not applicable 2. Were you prescribed any medications while in the ED or advised to stop any medication? Not applicable - If yes, were you able to fill your prescriptions? Not applicable -if stopped medication, what was the medication? NA 3. Were you advised to schedule a follow up appointment with your provider? Not applicable - If no, Do you feel like you need an appointment scheduled? Not applicable - If yes, Do you need this scheduled now or has this already been scheduled? Not applicable 4. Were you able to contact the office or linux consultant provider prior to your ED visit? Not applicable 5. Is there anything else I can do for you today? Not applicable Called lm on pt. Vm to contact office if he needs anything or would like to make a follow up apt. Lyubov Stratton MA [facility] 07-12-2023 History of Present illness Narrative ED Follow Up: Patient discharged from [facility] ED on 07/10/2023. 1. How are you feeling since your ED visit? NA Have your symptoms improved or resolved? Not applicable 2. Were you prescribed any medications while in the ED or advised to stop any medication? Not applicable - If yes, were you able to fill your prescriptions? Not applicable -if stopped medication, what was the medication? NA 3. Were you advised to schedule a follow up appointment with your provider? Not applicable - If no, Do you feel like you need an appointment scheduled? Not applicable - If yes, Do you need this scheduled now or has this already been scheduled? Not applicable 4. Were you able to contact the office or linux consultant provider prior to your ED visit? Not applicable 5. Is there anything else I can do for you today? Not applicable Called lm on pt. Vm to contact office if he needs anything or would like to make a follow up apt. Lyubov Stratton MA documented in this encounter [facility] 07-12-2023 Note Patient Outreach (AG FAMPLE) ALEXANDREA BRYANT II ([id number]) 1995 M Date Time Provider Department 07/12/23 LYUBOV STRATTON During your visit today, we recorded the following information about you: Lyubov Stratton MA 07/12/2023 1:46 PM Signed ED Follow Up: Patient discharged from [facility] ED on 07/10/2023. 1. How are you feeling since your ED visit? NA Have your symptoms improved or resolved? Not applicable 2. Were you prescribed any medications while in the ED or advised to stop any medication? Not applicable - If yes, were you able to fill your prescriptions? Not applicable -if stopped medication, what was the medication? NA 3. Were you advised to schedule a follow up appointment with your provider? Not applicable - If no, Do you feel like you need an appointment scheduled? Not applicable - If yes, Do you need this scheduled now or has this already been scheduled? Not applicable 4. Were you able to contact the office or linux consultant provider prior to your ED visit? Not applicable 5. Is there anything else I can do for you today? Not applicable Called lm on pt. Vm to contact office if he needs anything or would like to make a follow up apt. 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 07-10-2023 Discharge summary Note Date/Time July 10, 2023 4:47pm [facility] Medical Records Department [address] [place] [address] Emergency Department Summary 07/10/23 MR#: [id number] Acct: [id number] Name: ALEXANDREA BRYANT II Rep #:[id number] : 1995 28 From: Pio Erickson MD PCP: Care Physician,No Primary Status :REG ER Location: ED HPI History of Present Illness Chief Complaint: Upper Extremity Injury Narrative Narrative: 28-year-old male who denies significant past medical history presents with injury to his right fifth digit that he sustained yesterday evening. 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 He went down to reach [employer] ball and bring it in, when another player kicked his right finger, fifth digit. He states that it was bent outward and dislocated, and he corrected it himself. The area was sore yesterday, but when he awoke this morning he noticedincreased swelling and that his finger was turning different colors diffusely. He is now unable to bend or extend his finger. He denies other injury. He is right-hand dominant. He has been icing the area as well. [facility] Medical History Heart block Irregular heart beat Home Medications NK 02/08/21 [History Last Taken Unknown] Allergy/AdvReac Type Severity Reaction Status Date / Time No Known Allergies Allergy Verified 07/10/23 16:35 Social History Smoking Status: Never smoker substance use type: does not use ROS ROS ED ROS Narrative Constitutional: No fever, no chills. HEENT: No sore throat. No neck pain. No loss of vision. No rhinorrhea. Cardiovascular: No chest pain. No palpitations. No pedal edema. Respiratory: No cough, no shortness of breath. Abdominal: No abdominal pain. No nausea. No vomiting. Genitourinary: No dysuria. No hematuria. Musculoskeletal: No myalgias. Inability to flex or extend right fifth digit, positive swelling. Positive tenderness. Neurologic: No headaches. No dizziness. No lightheadedness. Skin: No rash. Positive ecchymosis to right fifth digit. Psychiatric: No depression. No anxiety. EXAM Physical Exam Narrative Exam Narrative: Afebrile. Vital signs noted. HEENT: Normocephalic. Atraumatic. PERRL, EOMI. Neck soft and supple. No pointtenderness or step off. Cardiovascular: Regular rate and rhythm. No murmurs, rubs, or gallops appreciated. Respiratory: No tachypnea. Lungs clear to auscultation bilaterally. Gastrointestinal: Abdomen soft, nontender, with normoactive bowel sounds. No rebound or guarding. Neurological: Awake. Alert. Nonfocal, nonlateralizing. Skin: No rash. Normal color. No pallor. Musculoskeletal: No pedal edema. Decreased range of motion fifth digit on righthand. Good capillary refill distally. Positive swelling and ecchymosis. Tenderness diffusely but especially at PIP joint. Const Vital Signs: 07/10/23 16:34 Temperature 97.6 F L Temperature Source Temporal Pulse Rate 63 Respiratory Rate 14 Blood Pressure 148/90 H Blood Pressure Mean 109 Pulse Ox 100 Oxygen Delivery Method Room Air MDM MDM MDM Narrative Medical decision making narrative: Concern is for fracture of fifth digit along with dislocation with incomplete relocation. He may have torn tendons as well. He declined any analgesics here in the emergency department. X-rays were obtained of the fifth digit in 3 views. On my individual interpretation there is a subtle fracture at the PIP joint on the volar aspect of the proximal phalanx. I reviewed the radiology report which comments on a volar plate fracture. At this point in time, I discussed patient with Dr. Perez with orthopedics who agrees with aluminum foam splint, and follow-up with hand surgery. He was referred to 2 different hand surgeons in the [place] area for follow-up within a week. I offered to write him for stronger pain medications but he declined and would like to take etog-whz-tyrtkwq analgesics. He will continue ice and elevation at home. I feel he can be discharged to follow-up. Return instructions to the emergency department were reviewed. Disposition is discharged home in stable condition. Management Discussion w/another healthcare provider: Manual Machinist (Dr. Perez, Orthopaedics) Discharge Plan Triage Chief Complaint: Upper Extremity Injury ED Provider: Pio Erickson Dx/Rx/DC Orders Clinical Impression: Dislocation, finger, Fracture of finger of right hand Instructions: ED Fracture, Finger, Closed Prescriptions: No Action NK Primary Care Provider: Care Physician,No Primary Referrals: JANET QUINTANILLA MD [Non-Staff] - 1 Week Princess Colón MD [Non-Staff] - 1 Week Care Physician,No Primary [Primary Care Provider] - Activity Restrictions/Additional Instructions: Follow-up with a hand surgeon in approximately 1 week. You can take bmov-cam-mfzdfmv medications as needed for pain. Disposition Disposition: Home, Self Care What to do if you have Problems For any increased pain, shortness of breath, bleeding, nausea or vomiting, chestpain, or any unexpected problems, contact your Primary Care Provider. Call [facility] ([phone]) or report to the closest Emergency Room. Call 911 if necessary. 07/10/23 1800 <Electronically signed by Pio Erickson MD> Cosigner Signature (if applicable): CC: No Primary Care Physician ~ Signed [facility] Work Phone: 1(330) 272-884009-19-2023 History of Present illness Narrative* Sherrill Luo APRN.CHIEF DISPATCHER SERVICE - 02/01/2023 1:46 PM EDT This note was created using NoteWriter. Subjective Alexandreajeff Bryant II is a 27 year old male. [...] history is provided by the patient. No american sign language interpreter was used. Wrist/forearm Injury The incident occurred [...] kg (179 lb 3.2 oz) SpO2 97% BMI23.01 kg/m Physical Exam Vitals and nursing note [...] soccer ball No head injury No LOC Sherrill Luo APRN.CNP [facility] History of Present illness Narrative* Kourtney Valerio RT(R) - 02/01/2023 12:10 PM EDT Radiology Service Progress Note PATIENT NAME: Alexandrea Bryant II DATE OF SERVICE: February 01, 2023 TIME: 12:01 PM PATIENT IDENTITY VERIFICATION COMPLETED USING TWO (2) IDENTIFIERS: Name and Date of confirmedby patient verbally. FALL SCREENING: Has the patient had 2 falls in the last year or 1 fall with injury or currently using an Ambulatory Assistive Device (Walker, Cane, Wheelchair, Crutches, etc.)? No PATIENT GENDER DATA: Male PATIENT RELEVANT IMPLANT DATA REVIEWED: Yes RADIOLOGY DEPARTMENT: General X-ray: Exam(s) Completed: Upper Extremity X- Ray(s): Wrist, right PERIPHERAL IV DATA: Not applicable SIGNED BY: RT Yadiel(R) February 01, 2023 12:01 PM documented in [facility] encounter[facility]23 Miscellaneous Notes* Telephone Encounter - Lyubov Stratton MA - 10/14/2022 3:56 PM EDT [facility] She will fax over medical records for ER . Lyubov Stratton MA documented in [facility] encounter[facility] Instructions* Patient Instructions* Estefanía Vo APRN.CNP - 10/14/2022 10:25 AM EDT [facility] Cardiac testing, Sleep services, and pulmonary testing, please jahaira [phone] documented in [facility] encounter[facility]06[facility] History of Present illness Narrative* Estefanía Vo APRN.CNP - 10/14/2022 9:51 AM EDT Images from the original note were not included. [facility] Estefanía Vo APRN-CHIEF DISPATCHER SERVICE [address] [id number] Dept Dept. Visit Date: October 14, 2022 Mr.Bradley Bernard Bryant II Date of : 1995 MRN/E #: [id number] Chief Complaint: Patient presents with: Establish Care: Was dx with heart murmer. Needs note to clear him to work. Last time seen acquisition professional was about 2 years ago. Has apt .with acquisition professional in March (Cant remember name) [place] 3 years ago. Said it is [facility] doc. History of Present Illness Alexandrea Bryant II is a 27 year old male presents today as a new patient and to discuss clearance for work from a cardiac standpoint. He states he has had a heart murmur since he was little. He was following with a acquisition professional for vasovagal syncope, but hasn't seen anyone in 5 years (followed with Dr. Mi). He is scheduled with a acquisition professional but can't be seen until March. He hasn't had a PCP in about 3 years. Per chart review, he has a history of a first degree heart block but there is no documentation about a heart murmur. He was in [place] ER in July of this year for complaints of dizziness and near syncope. He states he ended up being dehydrated and once he received fluids he felt better. He does report that his mother at the age of 51 from a possible stroke? His father has a history of heart disease and had a ID at the age of 50 and two TIAs. He states none of his siblings have any cardiac problems. The history is provided by the patient. No american sign language interpreter was used. PAST MEDICAL HISTORY Diagnosis Date [...] (around 04/15/2023) for heart block. Estefanía Vo APRN.KIKE, signed on October 14, 2022 9:51 AM documented in [facility] encounter[facility]03-[facility]23 History of Present illness Narrative* Edmond Brunner MD - 08/04/2022 2:09 PM EDT Express Care Triage Note: Patient presents to the [facility] with complaint of feeling dizzy/light- headed and almost passing out at work today. He had a bad headache yesterday. Denies chest pain or shortness of breath. No recent injury. Patient advised further evaluation in the emergency room. [facility] will go to [facility]. documented in this encounter[facility]01-[facility] History of Present illness Narrative* Kourtney Valerio RT(R) - 06/10/2021 9:30 AM EST Radiology Service Progress Note PATIENT NAME: Alexandrea Bryant II DATE OF SERVICE: June 10, 2021 TIME: 9:25 AM PATIENT IDENTITY VERIFICATION COMPLETED USING TWO (2) IDENTIFIERS: Name and Date of confirmedby patient verbally. FALL SCREENING: Has the patient had 2 falls in the last year or 1 fall with injury or currently using an Ambulatory Assistive Device (Walker, Cane, Wheelchair, Crutches, etc.)? No PATIENT GENDER DATA: Male PATIENT RELEVANT IMPLANT DATA REVIEWED: Yes RADIOLOGY DEPARTMENT: General X-ray: Exam(s) Completed: Chest X-Ray PERIPHERAL IV DATA: Not applicable SIGNED BY: RT Yadiel(R) June 10, 2021 9:25 AM [facility]* Diagnosis Near syncope- Primary Syncope and collapse documented [facility] this encounter [facility] noteNo assessment information availableWJ.W. [facility] Work Phone: Evaluation note* Diagnosis First degree heart block- Primary First degree atrioventricular block Incomplete right bundle branch block (RBBB) determined by electrocardiography Near syncope Syncope and collapse documented in this encounter [facility] note* Diagnosis Wrist pain, right- Primary Pain in joint, forearm Fall on same level from slipping, tripping or stumbling, initial encounter [facility]* Diagnosis Wrist pain, right Pain in joint, forearm [facility] Diagnosis Cough [facility]* Diagnosis Acute cough- Primary Acute cough documented [facility]* Diagnosis Acute cough [facility] Additional Instructions Follow-up with a hand surgeon in approximately 1 week. You can take ntaa-bfr-qytwezu medications as needed for pain.[facility] Work Phone: Reason for referral (narrative)* Outpatient Procedure (Routine) - Pending Review Specialty Diagnoses / Procedures Referred By Anuel stone Referred To [facility] Diagnoses First degree heart block Incomplete right bundle branch block (RBBB) determined by electrocardiography Near syncope Procedures ECHO ECHO TTHRC R-T 2D W/WOM-MODE COMPL SPEC&COLR D Estefanía Vo APRN.CHIEF DISPATCHER SERVICE [address] [place] [address] [facility] [place] [address] [place] [address] Referral ID Status Reason Start Date Expiration Date Visits Requested Visits Authorized [id number] Pending Review Auto-Generat ed Referral 10/14/2022 10/14/2023 1 1 [facility] for referral (narrative)* Diagnostic Procedure Only (Urgent) - Pending Review Specialty Diagnoses / Procedures Referred By Contac t Referred To Contact XR IMAGING Diagnoses Wrist pain, right Procedures XR WRIST GENERAL 3V PA/LAT/OBL RIGHT RADEX WRIST COMPLETE MINIMUM 3 VIEWS Sherrill Luo APRN.CHIEF DISPATCHER SERVICE [address] [place] [address] [place] [address] Referral ID Status Reason Start Date Expiration Date Visits Requested Visits Authorized [id number] Pending Review Auto-Generat ed Referral 02/01/2023 03/02/2024 1 1 [facility] for referral (narrative)* Diagnostic Procedure Only (Urgent) - Closed Specialty Diagnoses / Procedures Referred By Contac t Referred To Contact XR IMAGING Diagnoses Wrist pain, right Procedures XR WRIST GENERAL 3V PA/LAT/OBL RIGHT RADEX WRIST COMPLETE MINIMUM 3 VIEWS Sherrill Luo APRN.CNP [address] [place] [address] [place] [address] Referral ID Status Reason Start Date Expiration Date V isits Requested Visits Authorized [id number] Closed Auto-Generate d Referral 02/01/2023 03/02/2024 1 1 [facility] N[facility]* Diagnostic Procedure Only (Urgent) - Closed Specialty Diagnoses / Procedures Referred By Contac t Referred To Contact XR IMAGING Diagnoses Wrist pain, right Procedures XR WRIST GENERAL 3V PA/LAT/OBL RIGHT RADEX WRIST COMPLETE MINIMUM 3 VIEWS Sherrill Luo APRN.CHIEF DISPATCHER SERVICE [address] [place] [address] [place] [address] Referral ID Status Reason Start Date Expiration Date V isits Requested Visits Authorized [id number] Closed Auto-Generate d Referral 02/01/2023 03/02/2024 1 1 [facility] Chief Complaint and Reason for Visit Chief Complaint PE DRUG SCREEN/WILLB URT DIZZINESS Chief Complaint PE DRUG SCREEN/ GOJO RIGHT PINKY Advance Directives No Advanced Directives Records Found Advance Directive Response Recorded Date/ Time Living Will No August 04, 2022 4:30pm Power of Pneumatic Tester No August 04 4:30pm Advance Directive Response Recorded Date/ Time Living Will No July 10 5:48pm Power of Pneumatic Tester No July 10, 2023 5:48pm Summary Purpose Family History No Family History Records FoundNo Family History Records FoundNo Family History Records Found Additional Source Comments Source Comments (unrecognize d section and content) In the event this informatio n is protected by the Federal Confidentiality of Alcohol and Drug Abuse Patient Records regulations: The Federal rules restrict any use of the information to criminally investigate or prosecute any alcohol or drug abuse patient.[facility] the event this information is protected by the Federal Confidentiality of Alcohol and Drug Abuse Patient Records regulations: The Federal rules restrict any use of the information to criminally investigate or prosecute any alcohol or drug abuse patient.[facility] HospitalIn the event this information is protected by the Federal Confidentiality of Alcohol and Drug Abuse Patient Records regulations: The Federal rules restrict any use of the information to criminally investigate or prosecute any alcohol or drug abuse patient.[facility] HospitalIn the event this information is protected by the Federal Confidentiality of Alcohol and Drug Abuse Patient Records regulations: The Federal rules restrict any use of the information to criminally investigate or prosecute any alcohol or drug abuse patient.[facility] HospitalIn the event this information is protected by the Federal Confidentiality of Alcohol and Drug Abuse Patient Records regulations: The Federal rules restrict any use of the information to criminally investigate or prosecute any alcohol or drug abuse patient.[facility] HospitalIn the event this information is protected by the Federal Confidentiality of Alcohol and Drug Abuse Patient Records regulations: The Federal rules restrict any use of the information to criminally investigate or prosecute any alcohol or drug abuse patient.[facility]In the event this information is protected by the Federal Confidentiality of Alcohol and Drug Abuse Patient Records regulations: The Federal rules restrict any use of the information to criminally investigate or prosecute any alcohol or drug abuse patient.[facility]In the event this information is protected by the Federal Confidentiality of Alcohol and Drug Abuse Patient Records regulations: The Federal rules restrict any use of the information to criminally investigate or prosecute any alcohol or drug abuse patient.[facility] the event this information is protected by the Federal Confidentiality of Alcohol and Drug Abuse Patient Records regulations: The Federal rules restrict any use of the information to criminally investigate or prosecute any alcohol or drug abuse patient.[facility]In the event this information is protected by the Federal Confidentiality of Alcohol and Drug Abuse Patient Records regulations: The Federal rules restrict any use of the information to criminally investigate or prosecute any alcohol or drug abuse patient.[facility]In the event this information is protected by the Federal Confidentiality of Alcohol and Drug Abuse Patient Records regulations: The Federal rules restrict any use of the information to criminally investigate or prosecute any alcohol or drug abuse patient.[facility]In the event this information is protected by the Federal Confidentiality of Alcohol and Drug Abuse Patient Records regulations: The Federal rules restrict any use of the information to criminally investigate or prosecute any alcohol or drug abuse patient.[facility] Care Teams (unrecognized sec tion and content) Team Status: Active Member Role Status Dates No Primary Care Physician Family Provider Active No Primary Care Physician Primary Care Provider Active Team Status: Inactive Member Role Status Dates No Primary Care Physician Primary Care Provider, Refer ring Provider Active Saran ALTMAN, PA Attending Provider Active Team Status: Inactive Member Role Status Dates No Primary Care Physician Primary Care Provider Active Dr. Gabriel Johnson , Emergency Provider Active Principal Network Architect Relationship Specialty Start Date End Date Estefanía Vo, CORRECTIONAL THERAPY TEACHER.CHIEF DISPATCHER SERVICE [address], [place] [phone] PCP - General Family Medicine 10/14/22 Principal Network Architect Relationship Specialty Start Date End Date Estefanía Vo, CORRECTIONAL THERAPY TEACHER.CHIEF DISPATCHER SERVICE [address], [place] [phone] PCP - General Family Medicine 10/14/22 Principal Network Architect Relationship Specialty Start Date End Date Estefanía Vo, CORRECTIONAL THERAPY TEACHER.CHIEF DISPATCHER SERVICE [address] [place] [address] PCP - General Family Medicine 10/14/22 Team Status: Inactive Member Role Status Dates No Primary Care Physician Primary Care Provider, Refer ring Provider Active Rommel ALTMAN, PA Attending Provider Active Team Status: Inactive Member Role Status Dates No Primary Care Physician Primary Care Provider Active Pio Erickson MD Emergency Provider Active Principal Network Architect Relationship Specialty Start Date End Date Estefanía Vo, CORRECTIONAL THERAPY TEACHER.CHIEF DISPATCHER SERVICE [address] [place] [address] PCP - General Family Medicine 10/14/22 Principal Network Architect Relationship Specialty Start Date End Date Estefanía Vo, CORRECTIONAL THERAPY TEACHER.CHIEF DISPATCHER SERVICE [address] [facility] [place] [phone] PCP - General Family Medicine 10/14/22 Principal Network Architect Relationship Specialty Start Date End Date Estefanía Vo, CORRECTIONAL THERAPY TEACHER.CHIEF DISPATCHER SERVICE [address] [place] [address] PCP - General Family Medicine 10/14/22 Principal Network Architect Relationship Specialty Start Date End Date Estefanía Vo, CORRECTIONAL THERAPY TEACHER.CHIEF DISPATCHER SERVICE [address] [place] [address] PCP - General Family Medicine 10/14/22 Principal Network Architect Relationship Specialty Start Date End Date Estefanía Vo, CORRECTIONAL THERAPY TEACHER.CHIEF DISPATCHER SERVICE [address] [place] [address] PCP - General Family Medicine 10/14/22 Goals (unrecognized section and content) Goals may be documented in a n alternate sectionGoals may be documented in an alternate section Reason for Visit (unrecogniz ed section and content) Reason Comments Establish Care Was dx with heart mu rmer. Needs note to clear him to work. Last time seen acquisition professional was about 2 years ago. Has apt .with acquisition professional in March (Cant remember name) [place] 3 [place]. Said it is [facility] doc. Specialty Diagnoses / Procedures Referred By Anuel stone Referred To Contact FAMILY MEDICINE Diagnoses Financial Assistance - Establish Care-work clearance for heart murmur Procedures Financial Assistance - New Patient Self [employer] [place] [address] [place] [address] Referral ID Status Reason Start Date Expiration Date Visits Requested Visits Authorized [id number] Authorized Financial Clearance Required - Self Pay Patient Cleared - Qualified 100% FAS 09/28/2022 12/27/2022 99 99 Reason Comments Patient Update Reason Comments Wrist/forearm Injury R landed on hand x last night Reason Onset Date Comments ED OUTREACH 07/12[facility]23 Reason Comments Cough SHAHID, fever x 1 week Reason Onset Date Comments ED OUTREACH 06/12/2024 [facility] 06/08[facility]2024 Reason Onset Date Comments ED Follow-up 06/08/2024 [facility] 2024 (unrecognized sect ion and content) No Status Records FoundNo Status Records FoundNo Status Records Found INFORMATION SOURCE (unrecogn ized section and content) DATE CREATED AUTHOR 06/09/2024 [facility] DATE CREATED AUTHOR AUTHOR'S ORGANIZ ATION 06/16/2024 [facility] DATE CREATED AUTHOR AUTHOR'S ORGANIZ ATION 07/01/2024 [facility] FOR RECORDS PERTAINING TO PATIENTS WHO [...] BE BASED ON THE PRIMARY CLINICAL RECORDS. [facility] [employer] [facility]. provides no warranty or guarantee of the accuracy or completeness of information in this document.
--- OUTSIDE RECORDS SUMMARY | 2024-12-24 07:18 | XMS RPT_ITS | CCD ---
Author Organization [facility] Care Team Providers Care Director Of Guidance Name Role Phone Unavailable Primary Care Provider Unavailabl e Care Physician, No Primary Primary Care Provider Unavailable Care Physician, No Primary Referring Provider Un available AGAPITO Mireles Attending Provider Gabino DRYWALL FOREMAN.Estefanía STOKES Primary Care Provider Care Physician, No Primary Primary Care Provider Unavailable Care Physician, No Primary Referring Provider Un available AGAPITO Degroot Attending Provider Gabino DRYWALL FOREMAN.Estefanía STOKES Primary Care Provider Unavailable Primary Care [...] Department Summary on 06-09-2024 Emergency Department Summary [facility] Medical Records Department [address] [place] [address] Emergency Department Summary 06/09/24 MR#: [id number] Acct: [id number] Name: ALEXANDREA BRYANT II Rep #: [id number] : 1995 29 From: Prabhjot Duran DO [...] his persistent cough comes in for evaluation [facility] Medical History Irregular heart beat Heart block [...] effusion as (more content not included)... Normal [facility] Chest PA and Lateralon 06-08 Chest PA and Lateral [facility] Imaging Services [address] [place], [place] [address] Chest PA and Lateral MR#: [id number] Acct: [id number] Name: ANNETTEALEXANDREAJEFF LAUGHLIN II Rep #: [id number] : 1995 M 29 From: Radha Luke PCP: Care Physician,No Primary Status: REG ER Study: Chest PA and Lateral Date of Exam: 06/08/24 Exam# [id number] Ordering Dr: Prabhjot Duran DO [id number] INDICATION: cough COUGH FOR 4-5 DAYS AFTER [...] Prabhjot Duran DO; No Primary Care Physician Interactive Designer: Signed Normal [facility] 06-07-2024 [facility] ALEXANDREA BRYANT II ([id number]) 1995 M Date Time Provider Department 06/07/24 5:00 PM EDMOND BRUNNER [facility] During your visit today, we recorded the [...] Diagnosis:Acute cough [R05.1] Order(s):XR CHEST 2V FRONTAL/LAT [[id number]] Order #: [id number] FUTURE COVID AND INFLUENZA A/B AND RSV PCR, ROUTINE [[id number]] Order #: [id number]. #:[id number] benzonatate (TESSALON PERLE) 100 mg capsuleTake 1 [...] Status:Closed by EDMOND BRUNNER on 06/07/24 Normal [facility] COVID AND INFLUENZA A/B AND RSV PCR, ROUTINEon 06-07-2024 SARS-CoV-2 (COVID-19) RNA DAMIÁN+probe Ql (Unsp spec) SARS-COV-2 (AGENT OF COVID-19) RNA: Not detected INFLUENZA A RNA: Not detected INFLUENZA B RNA: Not detected RESPIRATORY SYNCYTIAL VIRUS (RSV) RNA: Not detected Normal [facility] Comment on above: Performed By: #### C VFLRS #### [facility] CLIA [id number] [address] [place] [address] [place] XR CHEST 2V FRONTAL/LATon [...] tissues: Unremarkable. IMPRESSION: No acute radiographic abnormality. Interactive Designer: AMANDA Transcribe Date/Time: Jun 07 2024 4:53P Dictated by : TRINIDAD KRUEGER MD This examination was interpreted and the report reviewed and electronically signed by: TRINIDAD KRUEGER MD on Jun 07 2024 4:53PM EST [id number] Normal [facility] XR Chest PA and Lateralon IMPRESSION: No acute radiographic abnormality. Interactive Designer: [facility] Transcribe Date/Time: Jun 07 2024 4:53P Dictated [...] soft tissues: Unremarkable. DIVISION OF RADIOLOGY Provider, [facility] - 06/07/2024 * * *Final Report* * [...] Unremarkable. IMPRESSION IMPRESSION: No acute radiographic abnormality. Interactive Designer: AMANDA Transcribe Date/Time: Jun 07 2024 4:53P Dictated by : TRINIDAD KRUEGER MD This examination was interpreted and the report reviewed and electronically signed by: TRINIDAD KRUEGER MD on Jun 07 2024 4:53PM EST [facility] Radiology Study observation (narrative) Martha luke [facility] XR Chest PA and LateralOrder ed By: Ccf Provider on 06-07-2024 [facility] Emergency Department Summary on 10-28-2023 Emergency Department Summary [facility] Medical Records Department [address] [place] [address] Emergency Department Summary 10/28/23 MR#: [id number] Acct: [id number] Name: ALEXANDREA BRYANT II Rep #: [id number] : 1995 28 From: Prabhjot Duran DO [...] of bleeding disorder or blood thinner use. [facility] Medical History Irregular heart beat Heart block [...] as interpre (more content not included)... Normal [facility] Foot min 3 Viewson 4 Foot min 3 Views [facility] Imaging Services [address] [place] [id number] Foot min 3 Views MR#: [id number] Acct: [id number] Name: ALEXANDREA BRYANT II Rep #: [id number] : 1995 M 28 From: Justin wang MD PCP: Care Physician,No Primary Status: REG ER Study: Foot min 3 Views Date of Exam: 10/28/23 Exam# [id number] Ordering Dr: Prabhjot Duran DO [id number] INDICATION: injury EXAMINATION/TECHNIQUE : X-RAY - LEFT [...] Prabhjot Duran DO; No Primary Care Physician Interactive Designer: Signed Normal [facility] Emergency Department Summary on 07-10-2023 Emergency Department Summary [facility] Medical Records Department [address] [place] [address] Emergency Department Summary 07/10/23 MR#: [id number] Acct: [id number] Name: ALEXANDREA BRYANT II Rep #: [id number] : 1995 28 From: Pio Erickson MD [...] has been icing the area as well. [facility] Medical History Heart block Irregular heart beat [...] to 2 different hand surgeons in the [place] area for follow-up within a week. I offered to write him for stronger pain medications but he declined and would like to take [id number] analgesics. He will continue ice and elevation at home. I feel he can be discharged to follow-up. Return instructions to the emergency department were reviewed. Disposition is discharged home in stable condition. Management Discussion w/another healthcare provider: Inspector Subassembly (Dr. Perez, Orthopaedics) Discharge Plan Triage Chief [...] Follow-up w (more content not included)... Normal [facility] Finger(s) Min 2 Viewson 06-17 Finger(s) Min 2 Views [facility] Imaging Services [address] [place] [address] Finger(s) Min 2 Views MR#: [id number] Acct: [id number] Name: ALEXANDREA BRYANT II Rep #: [id number] : 1995 M 28 From: James Luke PCP: Care Physician,No Primary Status: REG ER Study: Finger(s) Min 2 Views Date of Exam: 07/10/23 Exam# [id number] Ordering Dr: Pio Erickson MD [id number] EXAM: XR RIGHT FINGERS, 2 OR MORE [...] 17:37 EST Reading Location ID and State: [facility] / [place] , Service support , CC: Dr. Pio Erickson MD; No Primary Care Physician Interactive Designer: Signed Normal [facility] XR WRIST GENERAL 3V PA/LAT/O BL RIGHTon 02-01-2023 [facility] XR Wrist - right PA and Late ral and Obliqueon 02-01-2023 IMPRESSION: No radiographic evidence of acute osseous injury Interactive Designer: PSCB Transcribe Date/Time: Feb 01 2023 12:12P Dictated by : ANDRE LEAL MD This examination was interpreted and the report reviewed and electronically signed by: ANDRE LEAL MD on Feb 01 2023 12:16PM [facility] DIVISION OF RADIOLOGY * * *Final [...] Joint spaces preserved. DIVISION OF RADIOLOGY Provider[facility] * * *Final Report* [...] No radiographic evidence of acute osseous injury Interactive Designer: PSCB Transcribe Date/Time: Feb 01 2023 12:12P Dictated by : ANDRE LEAL MD This examination was interpreted and the report reviewed and electronically signed by: ANDRE LEAL MD on Feb 01 2023 12:16PM EST [facility] Radiology Study observation (narrative) Martha luke [facility] XR Wrist - right PA and Late ral and ObliqueOrdered By: Ccf Provider on 02-01-2023 [facility] Absolute lymphocyte countOrd ered By: Dr. Johnson on 08-04-2022 Lymphocytes Auto (Unsp spec) [#/Vol] 1.82 10*3/uL 0.83-4.51 [facility] Basophil percentageOrdered B y: Dr. Johnson on 08-04-2022 Basophils/100 WBC (Bld) 0.5 % 0-1 [facility] Chloride [Moles/Vol] 106 mmol/L 98-107 [facility] Eosinophils/100 WBC (Bld) 0.8 % 0-5 [facility] Glucose [Mass/Vol] 84 mg/dL 74-106 [facility] Neutrophils (Bld) [#/Vol] 3.8 10*3/uL 2.0-7.7 [facility] Neutrophils/100 WBC (Bld) 61.5 % 47-70 [facility] Potassium [Moles/Vol] 4.1 mmol/L 3.5-5.1 [facility] Sodium [Moles/Vol] 141 mmol/L 136-145 [facility] WBC (Bld) [#/Vol] 6.1 10*3/uL 4.4-11.0 [facility] Blood erythrocytes count (nu mber/volume)Ordered By: Dr. Johnson on 08-04-2022 RBC (Bld) [#/Vol] 5.03 10*6/uL 4.6-6.2 [facility] Blood hemoglobin measurement (mass/volume)Ordered By: Dr. Johnson on 08-04-2022 Hemoglobin (Bld) [Mass/Vol] 15.3 g/dL 13.0-16.5 [facility] Blood lymphocytes/100 leukoc ytesOrdered By: Dr. Johnson on 08-04-2022 Lymphocytes/100 WBC (Bld) 29.8 % 19-41 [facility] Blood monocytes/100 leukocyt esOrdered By: Dr. Johnson on 08-04-2022 Monocytes/100 WBC (Bld) 7.2 % 0-10 [facility] Blood platelet mean volumeOr dered By: Dr. Johnson on 08-04-2022 Platelet mean volume (Bld) [Entitic vol] 10.0 fL 6.2-12.0 [facility] Determination of erythrocyte mean corpuscular volume (MCV)Ordered By: Dr. Johnson on 08-04-2022 MCV (RBC) [Entitic vol] 92.4 fL 80-94 [facility] Hematocrit Auto (Bld) [Volum e fraction]Ordered By: Dr. Johnson on 08-04-2022 Hematocrit (Bld) [Volume fraction] 46.5 % 40-54 [facility] Laboratory - Chemistry and C hemistry - challengeOrdered By: Dr. Johnson on 08-04-2022 CO2 [Moles/Vol] 31.0 mmol/L 21.0-32.0 [facility] Urea nitrogen/Creatinine [Mass ratio] 14.5 mg/mg 10-20 [facility] - Hematology and Cell countsOrdered By: Dr. Johnson on 08-04-2022 Erythrocyte distribution width (RBC) [Entitic vol] 41.6 fL 35.1-43.9 [facility] Erythrocyte distribution width (RBC) [Ratio] 12.3 % 11.6-14.6 [facility] Immature granulocytes/100 WBC (Bld) 0.200 % 0.0-0.9 [facility] Comment on above: IG% - Immature Granu locytes (promyelocytes, myelocytes and metamyelocytes) > 1% indicates that a LEFT SHIFT is Present. MCH (RBC) [Entitic mass] 30.4 pg 27.0-32.0 [facility] Nucleated RBC/100 WBC (Bld) [Ratio] 0 % 0-5 [facility] MCHC Auto (RBC) [Mass/Vol]Or dered By: Dr. Johnson on 08-04-2022 MCHC (RBC) [Mass/Vol] 32.9 g/dL 32-36 [facility] No Panel InformationOrdered By: Dr. Johnson on 08-04-2022 Troponin I High Sensitivity 3 pg/mL 3.0-78.0 [facility] Comment on above: Please Note: New Nora t Units and Gender Specific Reference Ranges. For more information see Policy Stat Procedure [place] High Sensitivity Troponin (TNIH) and attachments. D-Dimer Quantitative (PE/DVT) < 0.27 FEU/ug/m 0.27-0.49 [facility] Comment on above: NORMAL D-Dimer level (<0.50) indicates no DVT or PE. Estimated Creatinine Clearance Calc 124.58 ml/min [facility] Estimated GFR (MDRD) Amer 120 mL/min >60 [facility] Comment on above: GFR Calc Estimated GFR (MDRD) Non-Af Amer 99 mL/min >60 [facility] Comment on above: Non- GFR Calc Platelets bldOrdered By: Dr. Johnson on 08-04-2022 Platelets (Bld) [#/Vol] 310 10*3/uL 150-450 [facility] Serum or plasma calcium fabiana urement (mass/volume)Ordered By: Dr. Johnson on 08-04-2022 Calcium [Mass/Vol] 9.7 mg/dL 8.5-10.1 [facility] Serum or plasma creatinine m easurement (mass/volume)Ordered By: Dr. Johnson on 08-04-2022 Creatinine [Mass/Vol] 0.96 mg/dL 0.70-1.30 [facility] Comment on above: The validity of the calculated GFR & GFRAA in patients over 70 years has not been determined. Clinical correlation is essential. Serum or plasma urea nitroge n measurement (mass/volume)Ordered By: Dr. Johnson on 08-04-2022 Urea nitrogen [Mass/Vol] 14 mg/dL 7-18 [facility] Thin prep Papanicolaou smear with manual screeningOrdered By: Dr. Johnson on 08-04-2022 Thin prep Papanicolaou smear with manual screening 4 5-15 [facility] XR Chest PA and Lateralon IMPRESSION: No acute radiographic abnormality. Interactive Designer: PSCB Transcribe Date/Time: Jun 10 2021 9:34A Dictated by : DAVID VARGHESE DO This examination was interpreted and the report reviewed and electronically signed by: DAVID VARGHESE DO on Jun 10 2021 11:02AM [facility] DIVISION OF RADIOLOGY * * *Final [...] soft tissues: Unremarkable. DIVISION OF RADIOLOGY Provider, [facility] - 06/10/2021 * * *Final Report* * [...] Unremarkable. IMPRESSION IMPRESSION: No acute radiographic abnormality. Interactive Designer: AMANDA Transcribe Date/Time: Jun 10 2021 9:34A Dictated by : DAVID VARGHESE DO This examination was interpreted and the report reviewed and electronically signed by: DAVID VARGHESE DO on Jun 10 2021 11:02AM EST [facility] Radiology Study observation (narrative) Martha Tolbert XR Chest PA and LateralOrder ed By: Ccf Provider on 06-10-2021 [facility] Vital Signs Date Time Vital Sign Value Performing Clinician Facility 06-07-2024 16:09-0500 Body mass index (BMI) [Ratio] 23.44 kg/m2 Edmond Brunner MD Work Phone: [facility] 06-07-2024 16:09-0500 Body temperature 99.1 [degF] Edmond Brunner MD Work Phone: [facility] 06-07-2024 16:09-0500 Body weight 82.8 kg Edmond Brunner MD Work Phone: [facility] 06-07-2024 16:09-0500 Diastolic blood pressure 82 mm[Hg] Edmond Brunner MD Work Phone: [facility] 06-07-2024 16:09-0500 Heart rate 70 /min Edmond Brunner MD Work Phone: [facility] 06-07-2024 16:09-0500 Respiratory rate 19 /min Edmond Brunner MD Work Phone: [facility] 06-07-2024 16:09-0500 SaO2% (BldA) [Mass fraction] 98 % Edmond Brunner MD Work Phone: [facility] 06-07-2024 16:09-0500 Systolic blood pressure 120 mm[Hg] Edmond Brunner MD Work Phone: [facility] 07-10-2023 16:34-0500 Body height 187.96 cm No Primary Care Physician [facility] 07-10-2023 16:34-0500 Body mass index (BMI) [Ratio] 23.6 kg/m2 No Primary Care Physician [facility] 07-10-2023 16:34-0500 Body temperature 97.6 [degF] No Primary Care Physician [facility] 07-10-2023 16:34-0500 Body weight 83.57 kg No Primary Care Physician [facility] 07-10-2023 16:34-0500 Diastolic blood pressure 90 mm[Hg] No Primary Care Physician [facility] 07-10-2023 16:34-0500 Heart rate 63 /min No Primary Care Physician [facility] 07-10-2023 16:34-0500 Respiratory rate 14 /min No Primary Care Physician [facility] 07-10-2023 16:34-0500 SaO2% (BldA) [Mass fraction] 100 % No Primary Care Physician [facility] 07-10-2023 16:34-0500 Systolic blood pressure 148 mm[Hg] No Primary Care Physician [facility] 02-01-2023 11:37-0400 Body temperature 97.39 [degF] Sherrill Luo DRYWALL FOREMAN.POWDERED METAL SUPERVISOR Work Phone: [facility] 02-01-2023 11:37-0400 Body weight 81.28 kg Sherrill Luo DRYWALL FOREMAN.POWDERED METAL SUPERVISOR Work Phone: [facility] 02-01-2023 11:37-0400 Diastolic blood pressure 74 mm[Hg] Sherrill Luo DRYWALL FOREMAN.POWDERED METAL SUPERVISOR Work Phone: [facility] 02-01-2023 11:37-0400 Heart rate 67 /min Sherrill Luo DRYWALL FOREMAN.POWDERED METAL SUPERVISOR Work Phone: [facility] 02-01-2023 11:37-0400 Respiratory rate 18 /min Sherrill Luo DRYWALL FOREMAN.POWDERED METAL SUPERVISOR Work Phone: [facility] 02-01-2023 11:37-0400 SaO2% (BldA) [Mass fraction] 97 % Sherrill Luo DRYWALL FOREMAN.POWDERED METAL SUPERVISOR Work Phone: [facility] 02-01-2023 11:37-0400 Systolic blood pressure 138 mm[Hg] Sherrill Luo DRYWALL FOREMAN.POWDERED METAL SUPERVISOR Work Phone: [facility] 10-14-2022 09:42-0400 Body height 188 cm Estefanía Queden DRYWALL FOREMAN.POWDERED METAL SUPERVISOR Work Phone: [facility] 10-14-2022 09:42-0400 Body temperature 97.7 [degF] Estefanía Queden DRYWALL FOREMAN.POWDERED METAL SUPERVISOR Work Phone: [facility] 10-14-2022 09:42-0400 Body weight 84.37 kg Estefanía Queden DRYWALL FOREMAN.POWDERED METAL SUPERVISOR Work Phone: [facility] 10-14-2022 09:42-0400 Diastolic blood pressure 60 mm[Hg] Estefanía Queden DRYWALL FOREMAN.POWDERED METAL SUPERVISOR Work Phone: [facility] 10-14-2022 09:42-0400 Heart rate 65 /min Estefanía Vo DRYWALL FOREMAN.POWDERED METAL SUPERVISOR Work Phone: [facility] 10-14-2022 09:42-0400 SaO2% (BldA) [Mass fraction] 98 % Estefanía Vo DRYWALL FOREMAN.POWDERED METAL SUPERVISOR Work Phone: [facility] 10-14-2022 09:42-0400 Systolic blood pressure 110 mm[Hg] Estefanía Vo DRYWALL FOREMAN.POWDERED METAL SUPERVISOR Work Phone: [facility] 08-04-2022 22:17-0400 Diastolic blood pressure 68 mm[Hg] No Primary Care Physician [facility] 08-04-2022 22:17-0400 Heart rate 57 /min No Primary Care Physician [facility] 08-04-2022 22:17-0400 Respiratory rate 18 /min No Primary Care Physician [facility] 08-04-2022 22:17-0400 SaO2% (BldA) [Mass fraction] 100 % No Primary Care Physician [facility] 08-04-2022 22:17-0400 Systolic blood pressure 121 mm[Hg] No Primary Care Physician [facility] 08-04-2022 14:30-0400 Body height 187.96 cm No Primary Care Physician [facility] 08-04-2022 14:30-0400 Body mass index (BMI) [Ratio] 21.5 kg/m2 No Primary Care Physician [facility] 08-04-2022 14:30-0400 Body temperature 97 [degF] No Primary Care Physician [facility] 08-04-2022 14:30-0400 Body weight 76.2 kg No Primary Care Physician [facility] Encounters Encounter Date Encounter Type Care Provider Facility Start: 06-14-2024 End: 06-14-2024 ambulatory Estefanía Vo APRN.POWDERED METAL SUPERVISOR Work Phone: [facility] Start: 06-14-2024 End: 06-14-2024 Follow-up encounter Estefanía Vo APRN.POWDERED METAL SUPERVISOR Work Phone: [facility] Comment on above: ED Follow-up ([facility] ED 06/08/2024) Start: 06-12-2024 End: 06-12-2024 ambulatory Estefanía Vo APRN.CNP Work Phone: [facility] Comment on above: ED OUTREACH (ED OUTR EACH/HARDWICK /06/08/2024) Start: 06-08-2024 End: 06-09-2024 Emergency department patient visit No Primary Care Physician Facility:[facility] Start: 06-07-2024 End: 06-07-2024 Patient encounter procedure Edmond Brunner MD Work Phone: [facility] Comment on above: Acute cough (Primary Dx) Start: 06-07-2024 End: 06-07-2024 ambulatory ESTEFANÍA VO Facility:[facility] Start: 06-07-2024 End: 06-07-2024 Subsequent hospital visit by physician Xr [facility] Work Phone: Radiology Comment on above: Acute cough [R05.1] Start: 10-31-2023 ambulatory [place] SECOND HAND PAPER MACHINE [facility] Start: 10-28-2023 End: 10-29-2023 Emergency department patient visit Prabhjotglory Duran Facility:[facility] Start: 07-12-2023 ambulatory Lyubov Strat[place] [facility] Comment on above: ED OUTREACH (ED OUTR EACH/HARDWICK /07/10/2023) Start: 07-10-2023 End: 07-10-2023 Emergency department patient visit No Primary Care Physician [facility] Work Phone: Start: 04-28-2023 End: 04-28-2023 Patient encounter procedure No Primary Care Physician [facility] Work Phone: Start: 02-01-2023 End: 02-01-2023 Subsequent hospital visit by physician Florina [facility] Work Phone: Radiology Comment on above: Wrist pain, right [M 25.531] Start: 02-01-2023 End: 02-01-2023 Patient encounter procedure Sherrill Luo DRYWALL FOREMAN.POWDERED METAL SUPERVISOR Work Phone: [facility] Comment on above: Wrist pain, right (P rimary Dx); Fall on same level from slipping, tripping or stumbling, initial encounter Start: 10-14-2022 Telephone encounter Estefanía Vo DRYWALL FOREMAN.POWDERED METAL SUPERVISOR Work Phone: [facility] Comment on above: Patient Update Start: 10-14-2022 End: 10-14-2022 Patient encounter procedure Estefanía Vo DRYWALL FOREMAN.POWDERED METAL SUPERVISOR Work Phone: [facility] Comment on above: First degree heart b lock (Primary Dx); Incomplete right bundle branch block (RBBB) determined by electrocardiography; Near syncope Start: 08-04-2022 End: 08-04-2022 Emergency department patient visit No [facility] Start: 08-04-2022 End: 08-04-2022 Patient encounter procedure Edmond Brunner MD Work Phone: [facility] Comment on above: Near syncope (Primar y Dx) Start: 07-22-2022 End: 07-22-2022 Patient encounter procedure No Primary Care Physician [facility] Start: 06-10-2021 End: 06-10-2021 Subsequent hospital visit by physician Florina [facility] Work Phone: Radiology Comment on above: Cough [R05.9] Procedures Date Procedure Procedure Detail Performing Clinician Start: 06-07-2024 Radiologic exam ches t 2 views Edmond Brunner MD Work Phone: Start: 07-10-2023 Diagnostic radiograp hy of finger No Primary Care Physician Start: 02-01-2023 Radex wrist complete minimum 3 views Sherrill Luo APRN.POWDERED METAL SUPERVISOR Work Phone: Start: 08-04-2022 Plain chest X-ray No [facility] Care Physician Start: 08-04-2022 CT of head without contrast No Primary Care Physician Start: 06-10-2021 Radiologic exam ches t 2 views Telma Fregoso DRYWALL FOREMAN.POWDERED METAL SUPERVISOR Work Phone: Plan of Treatment Date Care Activity Detail Author Start: 10-15-2031 Urine microalbumin profile [facility] Start: 01-15-2024 Covid-19 Vaccine ( season) Covid-19 Vaccine () [facility] Start: 01-15-2024 Covid-19 Vaccine () Covid-19 Vaccine () [facility] Start: 01-15-2024 Influenza vaccination [facility] Start: 11-28-2023 End: 11-28-2023 Patient encounter procedure 11/28/2023 3:00 PM EDT Office Visit Cardiology [address] [place] [phone] Adriano Santoro MD [address] [facility] [address] [place], [place] [id number] Establish as a new patient Cardiology Comment on above: Establish as a new patient Start: 10-15-2023 COVID-19 VACCINE (#1) COVID-19 VACCINE (#1) [facility] Comment on above: Postponed from 1995 (Declined at t his time) Start: 07-10-2023 [facility] Start: 05-16-2023 Behavioral Health Screening Behavioral Health Screening [facility] Start: 05-16-2023 Depression Assessment Depression Assessment [facility] Start: 01-14-2023 Covid-19 Vaccine ( season) Covid-19 Vaccine () [facility] Start: 01-14-2023 Influenza vaccination [facility] Start: 05-16-2022 DEPRESSION ASSESSMENT DEPRESSION ASSESSMENT [facility] Start: 01-14-2022 Influenza vaccination INFLUENZA (#1) [facility] Start: 10-20-2016 Urine microalbumin profile DTAP,TDAP,TD (7 - Td or Tdap) [facility] Start: 2013 Anxiety Screening Anxiety Screening [facility] Start: 2013 Depression Screening Depression Screening [facility] Start: 2013 HEPATITIS C SCREENING HEPATITIS C SCREENING [facility] Start: 2013 Hepatitis C screening Hepatitis C Screening [facility] Start: 2013 HIV SCREENING HIV SCREENING [facility] Start: 2013 HIV screening HIV Screening [facility] Start: 11-16-2011 HPV Vaccine (2 - Male 3-dose series) HPV Vaccine (2 - Male 3-dose series) [facility] Start: 1995 COVID-19 VACCINE (#1) COVID-19 VACCINE (#1) [facility] COVID & INFLUENZA A/ B & RSV PCR, ROUTINE COVID & INFLUENZA A/B & RSV PCR, ROUTINE Microbiology Routine Acute cough Ordered: 06/07/2024 [facility] Work Phone: Comment on above: Ordered: 06/07/2024 ECG B/O WO INTERP (M ED OFFICE) ECG B/O WO INTERP (MED OFFICE) ECG Routine Incomplete right bundle branch block (RBBB) determined by electrocardiography Ordered: 10/14/2022 [facility] Work Phone: Comment on above: Ordered: 10/14/2022 End: 10-15-2023 Echocardiography ECHO Cardiology Routine First degree heart block Incomplete right bundle branch block (RBBB) determined by electrocardiography Near syncope 1 Occurrences starting 10/14/2022 until 10/15/2023 [facility] Work Phone: Comment on above: 1 Occurrences starting 10/14/2022 until 10/15/2023 Patient Education [facility] Work Phone: Patient referral [facility] Work Phone: [facility] Immunizations Immunization Date Immunization Notes Care Provider Che bardales 10-14-2021 diphtheria, tetanus toxoids and acellular pertussis vaccine, Haemophilus influenzae type b conjugate, and poliovirus vaccine, inactivated ([id number]) Estefanía Vo APRN.CNP Work Phone: [facility] 02-08-2021 tetanus toxoid, redu adeola diphtheria toxoid, and acellular pertussis vaccine, adsorbed No Primary Care Physician [facility] 10-19-2011 human papilloma viru s vaccine, quadrivalent Edmond Brunner MD Work Phone: [facility] 10-19-2011 Meningococcal, MCV4, unspecified conjugate formulation(groups A, C, Y and W-135) Edmond Brunner MD Work Phone: [facility] 04-02-2011 influenza virus vaccine, unspecified formulation Edmond Brunner MD Work Phone: [facility] Work Phone: 10-29-2010 hepatitis A vaccine, unspecified formulation Edmond Brunner MD Work Phone: [facility] Work Phone: 03-26-2008 hepatitis A vaccine, unspecified formulation Edmond Brunner MD Work Phone: [facility] Work Phone: 03-26-2008 influenza virus vaccine, unspecified formulation Edmond Brunner MD Work Phone: [facility] Work Phone: 10-20-2006 Meningococcal, MCV4, unspecified conjugate formulation(groups A, C, Y and W-135) Edmond Brunner MD Work Phone: [facility] Work Phone: 10-20-2006 tetanus toxoid, redu adeola diphtheria toxoid, and acellular pertussis vaccine, adsorbed Edmond Brunner MD Work Phone: [facility] Work Phone: 02-12-2000 diphtheria, tetanus toxoids and acellular pertussis vaccine Edmond Brunner MD Work Phone: [facility] Work Phone: 02-12-2000 measles, mumps and rubella virus vaccine Edmond Brunner MD Work Phone: [facility] Work Phone: 02-12-2000 poliovirus vaccine, inactivated Edmond Brunner MD Work Phone: [facility] Work Phone: 10-30-1996 diphtheria, tetanus toxoids and acellular pertussis vaccine Edmond Brunner MD Work Phone: [facility] Work Phone: 07-14-1996 chicken pox (disease) Edmond Brunner MD Work Phone: [facility] Work Phone: 06-12-1996 haemophilus influenz ae type b vaccine, HbOC conjugate Edmond Brunner MD Work Phone: [facility] Work Phone: 06-12-1996 measles, mumps and rubella virus vaccine Edmond Brunner MD Work Phone: [facility] Work Phone: 06-12-1996 trivalent poliovirus vaccine, live, oral Edmond Brunner MD Work Phone: [facility] Work Phone: 1995 diphtheria, tetanus toxoids and acellular pertussis vaccine Edmond Brunner MD Work Phone: [facility] Work Phone: 1995 haemophilus influenz ae type b vaccine, HbOC conjugate Edmond Brunner MD Work Phone: [facility] Work Phone: 1995 trivalent poliovirus vaccine, live, oral Edmond Brunner MD Work Phone: [facility] Work Phone: 1995 diphtheria, tetanus toxoids and acellular pertussis vaccine Edmond Brunner MD Work Phone: [facility] Work Phone: 1995 haemophilus influenz ae type b vaccine, HbOC conjugate Edmond Brunner MD Work Phone: [facility] Work Phone: 1995 hepatitis B vaccine, pediatric or pediatric/adolescent dosage Edmond Brunner MD Work Phone: [facility] Work Phone: 1995 trivalent poliovirus vaccine, live, oral Edmond Brunner MD Work Phone: [facility] Work Phone: 1995 diphtheria, tetanus toxoids and acellular pertussis vaccine Edmond Brunner MD Work Phone: [facility] Work Phone: 1995 haemophilus influenz ae type b vaccine, HbOC conjugate Edmond Brunner MD Work Phone: [facility] Work Phone: 1995 hepatitis B vaccine, pediatric or pediatric/adolescent dosage Edmond Brunner MD Work Phone: [facility] Work Phone: 1995 hepatitis B vaccine, pediatric or pediatric/adolescent dosage Edmond Brunner MD Work Phone: [facility] Work Phone: Payers Date Payer Category Payer Self-pay [id number] 2023 Unknown [id number] 2021 Unknown [id number] Unknown DENISSE [id number] Unknown [facility] [id number] Unknown [id number] Unknown [id number] Unknown [id number] Social History Date Type Detail Facility Start: 09-29-2016 End: 02-01-2023 Tobacco smoking status [facility] Never smoked tobacco [facility] Start: 09-29-2016 End: 02-01-2023 Tobacco use and exposure Smokeless tobacco non-user [facility] Start: 06-10-2021 End: 12-30-2021 Alcohol intake Current non-drinker of alcohol (finding) [facility] Start: 1995 Sex Assigned At Not on file C [facility] Start: 08-04-2022 End: 07-10-2023 Tobacco smoking status NHIS Unknown if ever smoked [facility] Start: 1995 Sex Assigned At Male W [facility] Start: 10-14-2022 End: 06-07-2024 Alcohol intake Current drinker of alcohol (finding) [facility] Start: 10-14-2022 Alcohol [facility] Start: 10-14-2022 End: 02-01-2023 History of Social function [facility] Work Phone: Start: 10-14-2022 End: 02-01-2023 Tobacco use panel [facility] Work Phone: Adult Depression Screening Assessment 0 [facility] Work Phone: Start: 05-11-2021 End: 06-10-2021 Exposure to SARS-CoV-2 (event) Not sure [facility] Mental Status Date Assessment Result Facility 08-04-2022 Cognitive function Level Of Cons ciousness Awake;Alert;Appropriate;Follow s Commands [facility] Work Phone: Clinical Notes 06-10-2021 to 06-14-2024 Honey Bay LPN - 06/14/2024 11:58 AM Lyubov Velasquez MA - 06/12/2024 2:55 PM Dino Melton RT(R) - 06/07/2024 4:40 PM Edmond Muñoz MD - 06/07/2024 4:23 PM EST Note Date & Type Note Facility 06-14-2024 Note HNO ID: [id number] Author: HONEY BAY LPN Service: ? Author Type: LICENSED NURSE Type: Progress Notes Filed: 06/14/2024 12:00 Note Text: ED Follow-Up Note Provider Action / FYI: Call completed by: ERNA Patient seen in ED: Out of Network ED Contact made with Patient: No, left message. Honey Bay LPN June 14, 2024 12:00 PM [facility] 06-14-2024 History of Present illness Narrative ED Follow-Up Note Provider Action / FYI: Call completed by: ERNA Patient seen in ED: Out of Network ED Contact made with Patient: No, left message. Honey Bay LPN June 14, 2024 12:00 PM documented in this encounter [facility] 06-14-2024 Note Patient Outreach (AG FAMPLE) ALEXANDREA BRYANT II ([id number]) 1995 M Date Time Provider Department 06/14/24 [...] Encounter Status:Closed by HONEY BAY on 06/14/24 [facility] 06-12-2024 Note HNO ID: [id number] Author: LYUBOV STRATTON MA Service: ? Author Type: Level Vial Marker Type: Progress Notes Filed: 06/12/2024 14:56 Note Text: ED Follow Up: Patient discharged from [facility] ED on 06/08/2024. 1. How are [...] you able to contact the office or space and missile operations spacelift provider prior to your ED visit? Not applicable 5. Is there anything else I can do for you today? Not applicable Left message on patients vm to contact office if he needs anything. Lyubov Stratton MA [facility] 06-12-2024 History of Present illness Narrative ED Follow Up: Patient discharged from [facility] ED on 06/08/2024. 1. How are [...] you able to contact the office or space and missile operations spacelift provider prior to your ED visit? Not applicable 5. Is there anything else I can do for you today? Not applicable Left message on patients vm to contact office if he needs anything. Lyubov Stratton MA documented in this encounter [facility] 06-12-2024 Note Patient Outreach (AG FAMPLE) ALEXANDREA BRYANT II ([id number]) 1995 M Date Time Provider Department 06/12/24 ESTEFANÍA VO During your visit today, we recorded the following information about you: Lyubov Stratton MA 06/12/2024 2:56 PM Signed ED Follow Up: Patient discharged from [facility] ED on 06/08/2024. 1. How are [...] you able to contact the office or space and missile operations spacelift provider prior to your ED visit? Not [...] Encounter Status:Closed by LYUBOV STRATTON on 06/12/24 [facility] 06-07-2024 History of Present illness Narrative [...] PATIENT PRESENTS WITH AN IMPLANTABLE OR ATTACHED SURGICAL SERVICES COORDINATOR: No RADIOLOGY DEPARTMENT: General X-ray: Exam(s) Completed: Chest X-Ray PERIPHERAL IV DATA: Not applicable SIGNED BY: RT Carole(R) June 07, 2024 4:47 PM documented in this encounter [facility] 06-07-2024 Note HNO ID: [id number] Author: DINO MENDOZA RT(R) Service: ? Author Type: Tar Worker Type: Progress Notes Filed: 06/07/2024 16:52 Note [...] PATIENT PRESENTS WITH AN IMPLANTABLE OR ATTACHED SURGICAL SERVICES COORDINATOR: No RADIOLOGY DEPARTMENT: General X-ray: Exam(s) Completed: Chest X-Ray PERIPHERAL IV DATA: Not applicable SIGNED BY: RT Carole(R) June 07, 2024 4:47 PM [facility] 06-07-2024 Note HNO ID: [id number] Author: EDMOND BRUNNER MD Service: ? Author [...] or late onset fever. Edmond Brunner MD [facility] 06-07-2024 History of Present illness Narrative [...] Edmond Brunner MD documented in this encounter [facility] 10-31-2023 Note HNO ID: [id number] Author: HONEY BAY LPN Service: ? Author Type: LICENSED NURSE Type: Progress Notes Filed: 10/31/2023 15:21 Note Text: ED Follow Up: Patient discharged from [facility] ED on 10/28/2023. 1. How are [...] you able to contact the office or space and missile operations spacelift provider prior to your ED visit? No 5. Is there anything else I can do for you today? No [facility] 10-31-2023 History of Present illness Narrative ED Follow Up: Patient discharged from [facility] ED on 10/28/2023. 1. How are [...] you able to contact the office or space and missile operations spacelift provider prior to your ED visit? No 5. Is there anything else I can do for you today? No ED Follow Up: Patient discharged from [facility] ED on 10/28/2023. 1. How are [...] you able to contact the office or space and missile operations spacelift provider prior to your ED visit? Left message for pt to call office back. 5. Is there anything else I can do for you today? Left message for pt to call office back. documented in this encounter [facility] 10-31-2023 Note HNO ID: [id number] Author: HONEY BAY LPN Service: ? Author Type: LICENSED NURSE Type: Progress Notes Filed: 10/31/2023 14:48 Note Text: ED Follow Up: Patient discharged from [facility] ED on 10/28/2023. 1. How are [...] you able to contact the office or space and missile operations spacelift provider prior to your ED visit? Left message for pt to call office back. 5. Is there anything else I can do for you today? Left message for pt to call office back. [facility] 10-31-2023 Note Patient Outreach (AG FAMPLE) ALEXANDREA BRYANT II ([id number]) 1995 M Date Time Provider Department 10/31/23 [place] During your visit today, we recorded the following information about you: Honey Bay LPN 10/31/2023 2:48 PM Signed ED Follow Up: Patient discharged from [facility] ED on 10/28/2023. 1. How are [...] you able to contact the office or space and missile operations spacelift provider prior to your ED visit? Left message for pt to call office back. 5. Is there anything else I can do for you today? Left message for pt to call office back. Honey Bay LPN 10/31/2023 3:21 PM Signed ED Follow Up: Patient discharged from [facility] ED on 10/28/2023. 1. How are [...] you able to contact the office or space and missile operations spacelift provider prior to your ED visit? No [...] Encounter Status:Closed by HONEY BAY on 10/31/23 [facility] 07-12-2023 Note HNO ID: [id number] Author: LYUBOV STRATTON MA Service: ? Author Type: Level Vial Marker Type: Progress Notes Filed: 07/12/2023 13:46 Note Text: ED Follow Up: Patient discharged from [facility] ED on 07/10/2023. 1. How are [...] you able to contact the office or space and missile operations spacelift provider prior to your ED visit? Not applicable 5. Is there anything else I can do for you today? Not applicable Called lm on pt. Vm to contact office if he needs anything or would like to make a follow up apt. Lyubov Stratton MA [facility] 07-12-2023 History of Present illness Narrative ED Follow Up: Patient discharged from [facility] ED on 07/10/2023. 1. How are [...] you able to contact the office or space and missile operations spacelift provider prior to your ED visit? Not applicable 5. Is there anything else I can do for you today? Not applicable Called lm on pt. Vm to contact office if he needs anything or would like to make a follow up apt. Lyubov Stratton MA documented in this encounter [facility] 07-12-2023 Note Patient Outreach (AG FAMPLE) ALEXANDREA BRYANT II ([id number]) 1995 M Date Time Provider Department 07/12/23 LYUBOV STRATTON During your visit today, we recorded the following information about you: Lyubov Stratton MA 07/12/2023 1:46 PM Signed ED Follow Up: Patient discharged from [facility] ED on 07/10/2023. 1. How are [...] you able to contact the office or space and missile operations spacelift provider prior to your ED visit? 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 First Degree Heart Block [I44.0] 12/29/2009 Acne [L70.9] 10/19/2011 Vasovagal syncope [R55] 09/29/2016 Incomplete right bundle branch block (RBBB) det*10/14/2022 Dizziness and giddiness [R42] 08/10/2022 Pre-syncope [R55] 10/14/2022 Headache, unspecified [R51.9] 05/20/2023 Encounter Status:Closed by LYUBOV STRATTON on 07/12/23 [facility] 07-10-2023 Discharge summary Note Date/Time July 10, 2023 4:47pm [facility] Medical Records Department [address] [place] [address] Emergency Department Summary 07/10/23 MR#: [id number] Acct: [id number] Name: ALEXANDREA BRYANT II Rep #:[id number] : 1995 28 From: Pio Erickson MD [...] 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 He went down to reach [place] ball and bring it in, when another [...] has been icing the area as well. [facility] Medical History Heart block Irregular heart beat [...] to 2 different hand surgeons in the [place] area for follow-up within a week. I offered to write him for stronger pain medications but he declined and would like to take iajv-zml-fqsdunh analgesics. He will continue ice and elevation at home. I feel he can be discharged to follow-up. Return instructions to the emergency department were reviewed. Disposition is discharged home in stable condition. Management Discussion w/another healthcare provider: Inspector Subassembly (Dr. Perez, Orthopaedics) Discharge Plan Triage Chief [...] in approximately 1 week. You can take gair-vms-nwinbum medications as needed for pain. Disposition Disposition: Home, Self Care What to do if you have Problems For any increased pain, shortness of breath, bleeding, nausea or vomiting, chestpain, or any unexpected problems, contact your Primary Care Provider. Call [facility] ([phone]) or report to the closest Emergency Room. Call 911 if necessary. 07/10/23 1800 <Electronically signed by Pio Erickson MD> Cosigner Signature (if applicable): CC: No Primary Care Physician ~ Signed [facility] Work Phone: 1(224) 501-228409-19-2023 History of Present illness Narrative* Sherrill Luo APRN.POWDERED METAL SUPERVISOR - 02/01/2023 1:46 PM EDT This note [...] history is provided by the patient. No speech and language tutor was used. Wrist/forearm Injury The incident occurred [...] LOC Sherrill Luo APRN.CNP [facility] History of Present illness Narrative* Kourtney [...] 01, 2023 12:01 PM documented in this encounter[facility]23 Miscellaneous Notes* Telephone Encounter - Lyubov Stratton MA - 10/14/2022 3:56 PM EDT [facility] She will fax over medical records for ER . Lyubov Stratton MA documented in this encounter[facility]23 Instructions* Patient Instructions* Estefanía Vo APRN.CNP - 10/14/2022 10:25 AM EDT [facility] Cardiac testing, Sleep services, and pulmonary testing, please jahaira [phone] documented in this encounterOhio[facility]06-[facility]23 History of Present illness Narrative* Estefanía Vo APRN.CNP - 10/14/2022 9:51 AM EDT Images from the original note were not included. [facility] Estefanía Vo APRN-POWDERED METAL SUPERVISOR [address] [phone] Dept Dept. Visit Date: October 14, 2022 Mr.Bradley Bernard Bryant II Date of : 1995 MRN/E #: [id number] Chief Complaint: Patient presents with: Establish Care: Was dx with heart murmer. Needs note to clear him to work. Last time seen physical therapist assistant was about 2 years ago. Has apt .with physical therapist assistant in March (Cant remember name) last PCP was in [place] about 3 years ago. Said it is [facility] doc. History of Present Illness Alexandrea Bryant II is a 27 year old male presents today as a new patient and to discuss clearance for work from a cardiac standpoint. He states he has had a heart murmur since he was little. He was following with a physical therapist assistant for vasovagal syncope, but hasn't seen anyone in 5 years (followed with Dr. Mi). He is scheduled with a physical therapist assistant but can't be seen until March. He hasn't had a PCP in about 3 years. Per chart review, he has a history of a first degree heart block but there is no documentation about a heart murmur. He was in [place] [facility] in July of this year for [...] history is provided by the patient. No speech and language tutor was used. PAST MEDICAL HISTORY Diagnosis Date [...] 14, 2022 9:51 AM documented in this encounter[facility] History of Present illness Narrative* Edmond Brunner MD - 08/04/2022 2:09 PM EDT Express Care Triage Note: Patient presents to the [facility] with complaint of feeling dizzy/light- headed and almost passing out at work today. He had a bad headache yesterday. Denies chest pain or shortness of breath. No recent injury. Patient advised further evaluation in the emergency room. He will go to [facility]. documented in this encounter[facility]22 History of Present illness Narrative* Kourtney [...] 10, 2021 9:25 AM [facility] Diagnosis Near syncope- Primary Syncope and collapse [facility] noteNo assessment information [facility] Work Phone: Evaluation note* Diagnosis First degree heart block- Primary First degree atrioventricular block Incomplete right bundle branch block (RBBB) determined by electrocardiography Near syncope Syncope and collapse documented [facility]* Diagnosis Wrist pain, right- Primary Pain in joint, forearm Fall on same level from slipping, tripping or stumbling, initial encounter [facility] Wrist pain, right Pain in joint, forearm [facility] Diagnosis Cough [facility] Diagnosis Acute cough- Primary Acute cough [facility]* Diagnosis Acute cough [facility] Additional Instructions Follow-up with a hand surgeon in approximately 1 week. You can take lpdl-umr-otltopi medications as needed for pain.[facility] Work Phone: Reason for referral (narrative)* Outpatient Procedure (Routine) - Pending Review Specialty Diagnoses / Procedures Referred By Anuel stone Referred To Contact [facility] Diagnoses First degree heart block Incomplete right bundle branch block (RBBB) determined by electrocardiography Near syncope Procedures ECHO ECHO TTHRC R-T 2D W/WOM-MODE COMPL SPEC&COLR D Estefanía Vo APRN.POWDERED METAL SUPERVISOR [address] [place] [address] [facility] [place] [address] [place] [address] Referral ID Status Reason Start Date Expiration Date Visits Requested Visits Authorized [id number] Pending Review Auto-Generat ed Referral 10/14/2022 10/14/2023 1 1 [facility] for referral (narrative)* Diagnostic Procedure Only (Urgent) - Pending Review Specialty Diagnoses / Procedures Referred By Contac t Referred To Contact XR IMAGING Diagnoses Wrist pain, right Procedures XR WRIST GENERAL 3V PA/LAT/OBL RIGHT RADEX WRIST COMPLETE MINIMUM 3 VIEWS Sherrill Luo APRN.POWDERED METAL SUPERVISOR [address] [place] [address] [place] [address] Referral ID Status Reason Start Date Expiration Date Visits Requested Visits Authorized [id number] Pending Review Auto-Generat ed Referral 02/01/2023 03/02/2024 1 1 [facility] for referral (narrative)* Diagnostic Procedure Only (Urgent) - Closed Specialty Diagnoses / Procedures Referred By Contac t Referred To Contact XR IMAGING Diagnoses Wrist pain, right Procedures XR WRIST GENERAL 3V PA/LAT/OBL RIGHT RADEX WRIST COMPLETE MINIMUM 3 VIEWS Sherrill Luo APRN.CNP [address] [place] [address] [place] [address] Referral ID Status Reason Start Date Expiration Date V isits Requested Visits Authorized [id number] Closed Auto-Generate d Referral 02/01/2023 03/02/2024 1 1 [facility] N[facility]ative* Diagnostic Procedure Only (Urgent) - Closed Specialty Diagnoses / Procedures Referred By Contac t Referred To Contact XR IMAGING Diagnoses Wrist pain, right Procedures XR WRIST GENERAL 3V PA/LAT/OBL RIGHT RADEX WRIST COMPLETE MINIMUM 3 VIEWS Sherrill Luo APRN.POWDERED METAL SUPERVISOR [address] [place] [address] [place] [address] Referral ID Status Reason Start Date Expiration Date V isits Requested Visits Authorized [id number] Closed Auto-Generate d Referral 02/01/2023 03/02/2024 1 1 [facility] Chief Complaint and Reason for Visit Chief Complaint PE DRUG SCREEN/WILLB URT DIZZINESS Chief Complaint PE DRUG SCREEN/ GOJO RIGHT PINKY Advance Directives No Advanced Directives Records Found Advance Directive Response Recorded Date/ Time Living Will No August 04, 2022 4:30pm Power of Physician Office Clin Asst No August 04 4:30pm Advance Directive Response Recorded Date/ Time Living Will No July 10 5:48pm Power of Physician Office Clin Asst No July 10, 2023 5:48pm Summary Purpose [...] or prosecute any alcohol or drug abuse patient.[facility] the event this information is protected by the Federal Confidentiality of Alcohol and Drug Abuse Patient Records regulations: The Federal rules restrict any use of the information to criminally investigate or prosecute any alcohol or drug abuse patient.[facility] the event this information is protected by the Federal Confidentiality of Alcohol and Drug Abuse Patient Records regulations: The Federal rules restrict any use of the information to criminally investigate or prosecute any alcohol or drug abuse patient.[facility] HospitalIn the event this information is protected by the Federal Confidentiality of Alcohol and Drug Abuse Patient Records regulations: The Federal rules restrict any use of the information to criminally investigate or prosecute any alcohol or drug abuse patient.[facility] HospitalIn the event this information is protected by the Federal Confidentiality of Alcohol and Drug Abuse Patient Records regulations: The Federal rules restrict any use of the information to criminally investigate or prosecute any alcohol or drug abuse patient.[facility] HospitalIn the event this information is protected by the Federal Confidentiality of Alcohol and Drug Abuse Patient Records regulations: The Federal rules restrict any use of the information to criminally investigate or prosecute any alcohol or drug abuse patient.[facility] HospitalIn the event this information is protected by the Federal Confidentiality of Alcohol and Drug Abuse Patient Records regulations: The Federal rules restrict any use of the information to criminally investigate or prosecute any alcohol or drug abuse patient.[facility] Hospital[facility] the event this information is protected by the Federal Confidentiality of Alcohol and Drug Abuse Patient Records regulations: The Federal rules restrict any use of the information to criminally investigate or prosecute any alcohol or drug abuse patient.[facility] HospitalIn the event this information is protected by the Federal Confidentiality of Alcohol and Drug Abuse Patient Records regulations: The Federal rules restrict any use of the information to criminally investigate or prosecute any alcohol or drug abuse patient.[facility] HospitalIn the event this information is protected by the Federal Confidentiality of Alcohol and Drug Abuse Patient Records regulations: The Federal rules restrict any use of the information to criminally investigate or prosecute any alcohol or drug abuse patient.[facility] HospitalIn the event this information is protected by the Federal Confidentiality of Alcohol and Drug Abuse Patient Records regulations: The Federal rules restrict any use of the information to criminally investigate or prosecute any alcohol or drug abuse patient.[facility] HospitalIn the event this information is protected [...] Dr. Gabriel Johnson , Emergency Provider Active Director Of Guidance Relationship Specialty Start Date End Date Estefanía Vo, DRYWALL FOREMAN.POWDERED METAL SUPERVISOR [address], [place] [id number] PCP - General Family Medicine 10/14/22 Director Of Guidance Relationship Specialty Start Date End Date Estefanía Vo, DRYWALL FOREMAN.POWDERED METAL SUPERVISOR [address], [place] [id number] PCP - General Family Medicine 10/14/22 Director Of Guidance Relationship Specialty Start Date End Date Estefanía Vo, DRYWALL FOREMAN.POWDERED METAL SUPERVISOR [address] [place] [address] PCP - General Family Medicine 10/14/22 Team Status: Inactive Member Role Status Dates No Primary Care Physician Primary Care Provider, Refer ring Provider Active Rommel ALTMAN, PA Attending Provider Active Team Status: Inactive Member Role Status Dates No Primary Care Physician Primary Care Provider Active Pio Erickson MD Emergency Provider Active Director Of Guidance Relationship Specialty Start Date End Date Estefanía Vo, DRYWALL FOREMAN.POWDERED METAL SUPERVISOR [address] [place] [address] PCP - General Family Medicine 10/14/22 Director Of Guidance Relationship Specialty Start Date End Date Estefanía Vo, DRYWALL FOREMAN.POWDERED METAL SUPERVISOR [address] [facility] [place] [id number] PCP - General Family Medicine 10/14/22 Director Of Guidance Relationship Specialty Start Date End Date Estefanía Vo, DRYWALL FOREMAN.POWDERED METAL SUPERVISOR [address] [place] [address] PCP - General Family Medicine 10/14/22 Director Of Guidance Relationship Specialty Start Date End Date Estefanía Vo, DRYWALL FOREMAN.POWDERED METAL SUPERVISOR [address] [place] [address] PCP - General Family Medicine 10/14/22 Director Of Guidance Relationship Specialty Start Date End Date Estefanía Vo, DRYWALL FOREMAN.POWDERED METAL SUPERVISOR [address] [place] [address] PCP - General Family Medicine 10/14/22 Goals (unrecognized section and content) Goals may be documented in a n alternate sectionGoals may be documented in an alternate section Reason for Visit (unrecogniz ed section and content) Reason Comments Establish Care Was dx with heart mu rmer. Needs note to clear him to work. Last time seen physical therapist assistant was about 2 years ago. Has apt .with physical therapist assistant in March (Cant remember name) last PCP was in [place] about 3 years ago. Said it is [facility] doc. Specialty Diagnoses / Procedures Referred By Anuel stone Referred To Contact FAMILY MEDICINE Diagnoses Financial Assistance - Establish Care-work clearance for heart murmur Procedures Financial Assistance - New Patient Self [facility] [place] [address] [place] [address] Referral ID Status Reason Start Date Expiration Date Visits Requested Visits Authorized [id number] Authorized Financial Clearance Required - Self Pay [...] section and content) DATE CREATED AUTHOR 06/09/2024 [facility] DATE CREATED AUTHOR AUTHOR'S ORGANIZ ATION 06/16/2024 [facility] DATE CREATED AUTHOR AUTHOR'S ORGANIZ ATION 07/01/2024 [facility] FOR RECORDS PERTAINING TO PATIENTS WHO ARE [...] BE BASED ON THE PRIMARY CLINICAL RECORDS. [facility] [email or web address] [facility]. provides no warranty or guarantee of the accuracy or completeness of information in this document.
[2024-12-24] MEDS: 0.9% Normal Saline (1000mL) 1,000 ML 999 ML IV (07:28)
[2024-12-24] MEDS: Ketorolac 30 MG/ML Syringe IV (08:22)
[2024-12-24 09:25] VITALS: BP 128/66; PULSE 50; RESP 16; TEMP 36.8; O2SAT 99
== END 2024-12-24 09:26 | disposition home or self-care (01) ==
PROVIDERS: Emergency Provider Emergency Medicine; Visit Provider Emergency Medicine
DX: R51.9 Headache, unspecified (principal); R42 Dizziness and giddiness; R11.2 Nausea with vomiting, unspecified
CPT/HCPCS: 70450; 93005; 96361; 96374; 96375; 99284; A4216

== ENCOUNTER 2025-03-31 09:55 | Emergency (ER) | payer OTHER, SELFPAY ==
[2025-03-31 09:56] VITALS: BP 132/85; PULSE 69; RESP 16; TEMP 36.4; O2SAT 100; BMI 26.6
--- NOTE | 2025-03-31 10:08 | EX.ED.DYSGE1 ---
HPI History of Present Illness Chief Complaint: Bite Narrative Narrative: Patient is a 30-year-old male with past medical history of heart block when he was chart you know he states that he has no past medical history who presents to the emergency department concern for a tick embedded in his left leg. He states that he went hunting a few days ago and today noted that in the shower he noted there is a tick attached to his leg. States that ticks are very prevalent where he is hunting this year and has taken multiple off of himself. Patient otherwise states that he feels well but felt since this was and that it is like he should come here for further evaluation management. He believes that this tick has been attached to him max 3 days but thinks it is more last 2 days. [facility] Medical History Irregular heart beat Heart block Home Medications Medication Instructions Recorded Last Taken Type NK 12/24/24 Unknown History Allergy/AdvReac Type Severity Reaction Status Date / Time No Known Allergies Allergy Verified 03/31/25 09:57 Social History Smoking Status: Never smoker substance use type: does not use ROS ROS ED ROS Narrative Constitutional: Denies any fevers, chills, headaches Eyes: Denies change in vision double vision blurry vision Cardiovascular: Denies chest pain Respiratory: Denies shortness of breath Abdomen: States that he has some bruising to the right lower abdomen after soccer injury : Denies any urinary symptoms Neurological: Denies any numbness, weeks, tingling Musculoskeletal: Denies any back pain Skin: Complains of bruising that is better on his right lower side after soccer injury EXAM Physical Exam Narrative Exam Narrative: General: Patient lying in bed rest comfortably did not appear to be in acute distress Head: Atraumatic, normocephalic Eyes: PERRL bilaterally, EOMI bilaterally, no conjunctival injection noted Neck: Soft, supple, trachea midline Cardiovascular: Regular rate and rhythm Abdomen: Soft, nondistended, mild tenderness to palpation over the ecchymotic area of his right lower abdomen no rebound guarding exam Extremities: +5/5 strength noted in the bilateral lower extremities Neurological: Patient following commands and that he was at [facility] years 2024 Skin: Patient had tick embedded in his left inner thigh noted no erythema migrans noted no concern for infection Const Vital Signs: 03/31/25 09:56 Temperature 97.5 F L Temperature Source Oral Pulse Rate 69 Respiratory Rate 16 Blood Pressure 132/85 H Blood Pressure Mean 100 Pulse Ox 100 Oxygen Delivery Method Room Air MDM MDM MDM Narrative Medical decision making narrative: Patient is a 30-year-old male who presents to the emergency department for tick removal. On the differential diagnose includes but not limited to tick bite, Lyme exposure. Patient will be given a prophylactic dose of doxycycline 200 mg here in the emergency department will have Lyme antibody testing sent although he states that this is likely max 3 days that this was attached therefore low suspicion. The tick was able to be removed here in the emergency department. Of note in the exam when inquiring about the bruising noted in the right lower portion of the abdomen he states that last Tuesday he was playing soccer he was playing goalie he dove for the ball landed on his head and neck region and his legs bent awkwardly. He states that he is able to get up and when he went to dive again he noted that he had worsening pain over there. He states that there was no bruising or anything at that point time he states that he woke up on Tuesday the following day and noted that he had bruising on that side down to his right lateral hip and states that he has been icing/heating this and massaging it and states that is getting better. He states that he been able to eat and drink without any difficulty. I offered him workup for this although after further discussion and shared decision making have low suspicion for a surgical complication at this point time and he agrees. He will be referred to general surgery in case things are to worsen he was also advised if things worsen such as he has fevers, persistent vomiting not keeping down worsening bruising pain he should come back immediately. He is agreeable this plan all question concerns answered is discharged home in stable condition Discharge Plan Triage Chief Complaint: Bite ED Provider: Leno Jones Dx/Rx/DC Orders Clinical Impression: Tick bite, Right sided abdominal pain Prescriptions: No Action NK Primary Care Provider: Care Physician,No Primary Referrals: Benjamin Stahl MD [Med Staff - Active Staff, Family Practice] Claudia Smith MD [Med Staff - Active Staff, General Surgery] Care Physician,No Primary [Primary Care Provider, Medical] Activity Restrictions/Additional Instructions: Follow-up with the doctors you are referred to. Return with worsening symptoms or concerns. Lyme antibody testing was sent you were given a prophylactic dose of doxycycline here in the emergency department. Print Language: [place] Disposition Disposition: Home, Self Care
--- OUTSIDE RECORDS SUMMARY | 2025-03-31 10:24 | XMS RPT_ITS | CCD ---
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 STAFF.CLOTH SHEARER Work Phone: [facility] 10-14-2022 09:42-0400 Body height 188 cm Estefanía Queden GREENHOUSE STAFF.CLOTH SHEARER Work Phone: [facility] 10-14-2022 09:42-0400 Body temperature 97.7 [degF] Estefanía Queden GREENHOUSE STAFF.CLOTH SHEARER Work Phone: [facility] 10-14-2022 09:42-0400 Body weight 84.37 kg Estefanía Queden GREENHOUSE STAFF.CLOTH SHEARER Work Phone: [facility] 10-14-2022 09:42-0400 Diastolic blood pressure 60 mm[Hg] Estefanía Queden GREENHOUSE STAFF.CLOTH SHEARER Work Phone: [facility] 10-14-2022 09:42-0400 Heart rate 65 /min Estefanía Queden GREENHOUSE STAFF.CLOTH SHEARER Work Phone: [facility] 10-14-2022 09:42-0400 SaO2% (BldA) [Mass fraction] 98 % Estefanía Queden GREENHOUSE STAFF.CLOTH SHEARER Work Phone: [facility] 10-14-2022 09:42-0400 Systolic blood pressure 110 mm[Hg] Estefanía Queden GREENHOUSE STAFF.CLOTH SHEARER Work Phone: [facility] 08-04-2022 22:17-0400 Diastolic blood pressure 68 mm[Hg] No Primary Care Physician [facility] 08-04-2022 22:17-0400 Heart rate 57 /min No Primary Care Physician [facility] 08-04-2022 22:17-0400 Respiratory rate 18 /min No Primary Care Physician [facility] 08-04-2022 22:17-0400 SaO2% (BldA) [Mass fraction] 100 % No Primary Care Physician [facility] 08-04-2022 22:17-0400 Systolic blood pressure 121 mm[Hg] No Primary Care Physician [facility] 08-04-2022 14:30-0400 Body height 187.96 cm No Primary Care Physician [facility] 08-04-2022 14:30-0400 Body mass index (BMI) [Ratio] 21.5 kg/m2 No Primary Care Physician [facility] 08-04-2022 14:30-0400 Body temperature 97 [degF] No Primary Care Physician [facility] 08-04-2022 14:30-0400 Body weight 76.2 kg No Primary Care Physician [facility] Encounters Encounter Date Encounter Type Care Provider Facility Start: 12-28-2024 End: 12-28-2024 ambulatory Estefanía A Queden GREENHOUSE STAFF.CLOTH SHEARER Work Phone: [facility] Start: 12-28-2024 End: 12-28-2024 Follow-up encounter Estefanía A Queden GREENHOUSE STAFF.CLOTH SHEARER Work Phone: [facility] Comment on above: ED [facility]-up ([facility]) Start: 12-26-2024 End: 12-26-2024 ambulatory Estefanía A Queden GREENHOUSE STAFF.CLOTH SHEARER Work Phone: [facility] Start: 12-26-2024 End: 12-26-2024 Follow-up encounter Estefanía A Queden GREENHOUSE STAFF.CLOTH SHEARER Work Phone: [facility] Comment on above: ED Follow-up ([facility] 12/24/24) Start: 12-24-2024 End: 12-24-2024 Emergency department patient visit No Primary Care Physician -Emergency Department Work Phone: Start: 06-14-2024 End: 06-14-2024 ambulatory Estefanía Theo Gabino GREENHOUSE STAFF.CLOTH SHEARER Work Phone: [facility] Start: 06-14-2024 End: 06-14-2024 Follow-up encounter Estefanía Vo GREENHOUSE STAFF.CLOTH SHEARER Work Phone: [facility] Comment on above: ED Follow-up ([facility] 06/08/2024) Start: 06-12-2024 End: 06-12-2024 ambulatory Estefanía Theo Gabino GREENHOUSE STAFF.CLOTH SHEARER Work Phone: [facility] Comment on above: ED OUTREACH (ED OUTR EACH/TIRO /06/08/2024) Start: 06-08-2024 End: 06-09-2024 Emergency department patient visit Prabhjot Belcher Facility:[facility] Start: 06-07-2024 End: 06-07-2024 Patient encounter procedure Edmond Brunner MD Work Phone: [facility] Comment on above: Acute cough (Primary Dx) Start: 06-07-2024 End: 06-07-2024 ambulatory ESTEFANÍA VO Facility:[facility] Start: 06-07-2024 End: 06-07-2024 Subsequent hospital visit by physician Xr [facility] Work Phone: Radiology Comment on above: Acute cough [R05.1] Start: 10-31-2023 ambulatory Honey Bay LPN [facility] Start: 07-12-2023 ambulatory Lyubov Stratton MA [facility] Comment on above: ED OUTREACH (ED OUTR EACH/TIRO /07/10/2023) Start: 07-10-2023 End: 07-10-2023 Emergency department patient visit No Primary Care Physician [facility]-Emergency Department Work Phone: Start: 04-28-2023 End: 04-28-2023 Patient encounter procedure No Primary Care Physician [facility] Work Phone: Start: 02-01-2023 End: 02-01-2023 Subsequent hospital visit by physician Florina [facility] Jennifer Work Phone: Radiology Comment on above: Wrist pain, right [M 25.531] Start: 02-01-2023 End: 02-01-2023 Patient encounter procedure Sherrill Luo GREENHOUSE STAFF.CLOTH SHEARER Work Phone: [facility] Comment on above: Wrist pain, right (P rimary Dx); Fall on same level from slipping, tripping or stumbling, initial encounter Start: 10-14-2022 Telephone encounter Estefanía Vo APRN.CLOTH SHEARER Work Phone: [facility] Comment on above: Patient Update Start: 10-14-2022 End: 10-14-2022 Patient encounter procedure Estefanía Vo APRN.CLOTH SHEARER Work Phone: [facility] Comment on above: First degree heart b lock (Primary Dx); Incomplete right bundle branch block (RBBB) determined by electrocardiography; Near syncope Start: 08-04-2022 End: 08-04-2022 Emergency department patient visit No [facility] Start: 08-04-2022 End: 08-04-2022 Patient encounter procedure Edmond Brunner MD Work Phone: [facility] Comment on above: Near syncope (Primar y Dx) Start: 07-22-2022 End: 07-22-2022 Patient encounter procedure No Primary Care Physician [facility] Start: 06-10-2021 End: 06-10-2021 Subsequent hospital visit by physician Florina [facility] Jennifer Work Phone: Radiology Comment on above: Cough [R05.9] Procedures Date Procedure Procedure Detail Performing Clinician Start: 12-24-2024 CT of head without contrast No Primary Care Physician Start: 06-07-2024 Radiologic exam ches t 2 views Edmond Brunner MD Work Phone: Start: 07-10-2023 Diagnostic radiograp hy of finger No Primary Care Physician Start: 02-01-2023 Radex wrist complete minimum 3 views Sherrill Torogs GREENHOUSE STAFF.CLOTH SHEARER Work Phone: Start: 08-04-2022 Plain chest X-ray No Pr imary Care Physician Start: 08-04-2022 CT of head without contrast No Primary Care Physician Start: 06-10-2021 Radiologic exam ches t 2 views Telma Fregoso GREENHOUSE STAFF.CLOTH SHEARER Work Phone: Plan of Treatment Date Care Activity Detail Author Start: 10-15-2031 Urine microalbumin profile [facility] Start: 05-20-2025 End: 05-20-2025 Patient encounter procedure 05/20/2025 10:40 AM EST Office Visit Cardiology [address] [place], [place] [id number] Jonathan Meade MD [address], [address] [place] [address] Establish care per web request Cardiology Comment on above: Establish care per web request Start: 01-14-2025 Influenza vaccination Influenza Vaccine (#1) [facility] Start: 12-24-2024 [facility] Start: 01-15-2024 Covid-19 Vaccine ( season) Covid-19 Vaccine ( season) [facility] Start: 01-15-2024 Covid-19 Vaccine ( season) Covid-19 Vaccine ( season) [facility] Start: 01-15-2024 Influenza vaccination [facility] Start: 11-28-2023 End: 11-28-2023 Patient encounter procedure 11/28/2023 3:00 PM EDT Office Visit Cardiology [address] [place] [id number] Adriano Santoro MD [address] [place] [address] Establish as a new patient Cardiology Comment on above: Establish as a new patient Start: 10-15-2023 COVID-19 VACCINE (#1) COVID-19 VACCINE (#1) [facility] Comment on above: Postponed from 1995 (Declined at t his time) Start: 07-10-2023 [facility] Start: 05-16-2023 Behavioral Health Screening Behavioral Health Screening [facility] Start: 05-16-2023 Depression Assessment Depression Assessment [facility] Start: 01-14-2023 Covid-19 Vaccine () Covid-19 Vaccine () [facility] Start: 01-14-2023 Influenza vaccination [facility] Start: 05-16-2022 DEPRESSION ASSESSMENT DEPRESSION ASSESSMENT [facility] Start: 01-14-2022 Influenza vaccination INFLUENZA (#1) [facility] Start: 10-20-2016 Urine microalbumin profile DTAP,TDAP,TD (7 - Td or Tdap) [facility] Start: 2013 Anxiety Screening Anxiety Screening [facility] Start: 2013 Depression Screening Depression Screening [facility] Start: 2013 HEPATITIS C SCREENING HEPATITIS C SCREENING [facility] Start: 2013 Hepatitis C screening Hepatitis C Screening [facility] Start: 2013 HIV SCREENING HIV SCREENING [facility] Start: 2013 HIV screening HIV Screening [facility] Start: 11-16-2011 HPV Vaccine (2 - Male 3-dose series) HPV Vaccine (2 - Male 3-dose series) [facility] Start: 1995 COVID-19 VACCINE (#1) COVID-19 VACCINE (#1) [facility] COVID & INFLUENZA A/ B & RSV PCR, ROUTINE COVID & INFLUENZA A/B & RSV PCR, ROUTINE Microbiology Routine Acute cough Ordered: 06/07/2024 [facility] Work Phone: Comment on above: Ordered: 06/07/2024 ECG B/O WO INTERP (M ED OFFICE) ECG B/O WO INTERP (MED OFFICE) ECG Routine Incomplete right bundle branch block (RBBB) determined by electrocardiography Ordered: 10/14/2022 [facility] Work Phone: Comment on above: Ordered: 10/14/2022 End: 10-15-2023 Echocardiography ECHO Cardiology Routine First degree heart block Incomplete right bundle branch block (RBBB) determined by electrocardiography Near syncope 1 Occurrences starting 10/14/2022 until 10/15/2023 [facility] Work Phone: Comment on above: 1 Occurrences starting 10/14/2022 until 10/15/2023 Patient [facility] Work Phone: [facility] referral [facility] Immunizations Immunization Date Immunization Notes Care Provider Che bardales 10-14-2021 diphtheria, tetanus toxoids and acellular pertussis vaccine, Haemophilus influenzae type b conjugate, and poliovirus vaccine, inactivated ([id number]) Estefanía Vo APRN.CNP Work Phone: [facility] 02-08-2021 tetanus toxoid, redu adeola diphtheria toxoid, and acellular pertussis vaccine, adsorbed No Primary Care Physician [facility] 10-19-2011 human papilloma viru s vaccine, quadrivalent Edmond Brunner MD Work Phone: [facility] 10-19-2011 Meningococcal, MCV4, unspecified conjugate formulation(groups A, C, Y and W-135) Edmond Brunner MD Work Phone: [facility] 04-02-2011 influenza virus vaccine, unspecified formulation Edmond Brunner MD Work Phone: [facility] Work Phone: 10-29-2010 hepatitis A vaccine, unspecified formulation Edmond Brunner MD Work Phone: [facility] Work Phone: 03-26-2008 hepatitis A vaccine, unspecified formulation Edmond Brunner MD Work Phone: [facility] Work Phone: 03-26-2008 influenza virus vaccine, unspecified formulation Edmond Brunner MD Work Phone: [facility] Work Phone: 10-20-2006 Meningococcal, MCV4, unspecified conjugate formulation(groups A, C, Y and W-135) Edmond Brunner MD Work Phone: [facility] Work Phone: 10-20-2006 tetanus toxoid, redu adeola diphtheria toxoid, and acellular pertussis vaccine, adsorbed Edmond Brunner MD Work Phone: [facility] Work Phone: 02-12-2000 diphtheria, tetanus toxoids and acellular pertussis vaccine Edmond Brunner MD Work Phone: [facility] Work Phone: 02-12-2000 measles, mumps and rubella virus vaccine Edmond Brunner MD Work Phone: [facility] Work Phone: 02-12-2000 poliovirus vaccine, inactivated Edmond Brunner MD Work Phone: [facility] Work Phone: 10-30-1996 diphtheria, tetanus toxoids and acellular pertussis vaccine Edmond Brunner MD Work Phone: [facility] Work Phone: 07-14-1996 chicken pox (disease) Edmond Brunner MD Work Phone: [facility] Work Phone: 06-12-1996 haemophilus influenz ae type b vaccine, HbOC conjugate Edmond Brunner MD Work Phone: [facility] Work Phone: 06-12-1996 measles, mumps and rubella virus vaccine Edmond Brunner MD Work Phone: [facility] Work Phone: 06-12-1996 trivalent poliovirus vaccine, live, oral Edmond Brunner MD Work Phone: [facility] Work Phone: 1995 diphtheria, tetanus toxoids and acellular pertussis vaccine Edmond Brunner MD Work Phone: [facility] Work Phone: 1995 haemophilus influenz ae type b vaccine, HbOC conjugate Edmond Brunner MD Work Phone: [facility] Work Phone: 1995 trivalent poliovirus vaccine, live, oral Edmond Brunner MD Work Phone: [facility] Work Phone: 1995 diphtheria, tetanus toxoids and acellular pertussis vaccine Edmond Brunner MD Work Phone: [facility] Work Phone: 1995 haemophilus influenz ae type b vaccine, HbOC conjugate Edmond Brunner MD Work Phone: [facility] Work Phone: 1995 hepatitis B vaccine, pediatric or pediatric/adolescent dosage Edmond Brunner MD Work Phone: [facility] Work Phone: 1995 trivalent poliovirus vaccine, live, oral Edmond Brunner MD Work Phone: [facility] Work Phone: 1995 diphtheria, tetanus toxoids and acellular pertussis vaccine Edmond Brunner MD Work Phone: [facility] Work Phone: 1995 haemophilus influenz ae type b vaccine, HbOC conjugate Edmond Brunner MD Work Phone: [facility] Work Phone: 1995 hepatitis B vaccine, pediatric or pediatric/adolescent dosage Edmond Brunner MD Work Phone: [facility] Work Phone: 1995 hepatitis B vaccine, pediatric or pediatric/adolescent dosage Edmond Brunner MD Work Phone: [facility] Work Phone: Payers Date Payer Category Payer Unknown [id number] 2024 Self-pay [id number] 2023 [employer] BLUE ACCE SS PPO [id number] 2023 Unknown [id number] 2021 Unknown [id number] Unknown DENISSE [id number] Unknown [id number] Unknown [id number] Social History Date Type Detail Facility Start: 09-29-2016 End: 02-01-2023 Tobacco smoking status NHIS Never smoked tobacco [facility] Start: 09-29-2016 End: 02-01-2023 Tobacco use and exposure Smokeless tobacco non-user [facility] Start: 06-10-2021 End: 12-30-2021 Alcohol intake Current non-drinker of alcohol (finding) [facility] Start: 1995 Sex Assigned At Not on file [facility] Start: 08-04-2022 End: 07-10-2023 Tobacco smoking status TXIS Unknown if ever smoked [facility] Start: 1995 Sex Assigned At Male [facility] Start: 10-14-2022 End: 06-07-2024 Alcohol intake Current drinker of alcohol (finding) [facility] Start: 10-14-2022 Alcohol Comment rare Analilia [facility] Start: 10-14-2022 End: 02-01-2023 History of Social function [facility] Work Phone: Start: 10-14-2022 End: 02-01-2023 Tobacco use panel [facility] Work Phone: Start: 04-16-2012 Adult Depression Screening Assessment 0 [facility] Work Phone: Start: 05-11-2021 End: 06-10-2021 Exposure to SARS-CoV-2 (event) Not sure [facility] Functional Status Date Assessment Result Facility 12-17-2014 Are you deaf, or do you have serious difficulty hearing No 12/17/2014 2:50 PM Laurence Cablalero LPN No [facility] 12-17-2014 Are you blind, or do you have serious difficulty seeing, even when wearing glasses No 12/17/2014 2:50 PM Laurence Caballero LPN No [facility] 12-17-2014 Do you have serious difficulty walking or climbing stairs No 12/17/2014 2:50 PM Laurence Caballero LPN No [facility] 12-17-2014 Do you have difficul ty dressing or bathing No 12/17/2014 2:50 PM Laurence Caballero LPN No [facility] 12-17-2014 Because of a physica l, mental, or emotional condition, do you have difficulty doing errands alone such as visiting a physician's office or shopping No 12/17/2014 2:50 PM Laurence Caballero LPN No [facility] Mental Status Date Assessment Result Facility 12-24-2024 Cognitive function Level Of Cons ciousness Awake;Alert;Appropriate;Fol lows Commands [facility] Work Phone: 08-04-2022 Cognitive function Level Of Cons ciousness Awake;Alert;Appropriate;Fol lows Commands [facility] Work Phone: 12-17-2014 Because of a physica l, mental, or emotional condition, do you have serious difficulty concentrating, remembering, or making decisions No 12/17/2014 2:50 PM EDT Laurence Greene LPN No [facility] Clinical Notes 06-10-2021 to 12-28-2024 Honey Bay LPN - 12/28/2024 9:37 AM Jeremiah Olvera MA - 12/26/2024 11:12 AM Honey Atkinson LPN - 06/14/2024 11:58 AM Lyubov Velasquez MA - 06/12/2024 2:55 PM EST Note Date & Type Note Facility 12-28-2024 Note HNO ID: [id number] Author: HONEY BAY LPN Service: ? Author Type: LICENSED NURSE Type: Progress Notes Filed: 12/28/2024 09:39 Note Text: ED Follow-Up Note Provider Action / FYI: Call completed by: ERNA Patient seen in ED: Out of Network ED Contact made with Patient: No, left message. Honey Bay LPN December 28, 2024 9:39 AM [facility] 12-28-2024 History of Present illness Narrative ED Follow-Up Note Provider Action / FYI: Call completed by: ERNA Patient seen in ED: Out of Network ED Contact made with Patient: No, left message. Honey Bay LPN December 28, 2024 9:39 AM documented in this encounter [facility] 12-28-2024 Note Patient Outreach (TRACY WALTON) RUDY BRYANT II ([id number]) 1995 M Date Time Provider Department 12/28/24 ESTEFANÍA VO During your visit today, we recorded the following information about you: Honey Bay LPN 12/28/2024 9:39 AM Signed ED Follow-Up Note Provider Action / FYI: Call completed by: ERNA Patient seen in ED: Out of Network ED Contact made with Patient: No, left message. 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 Author Type: Oim Consultant Type: Progress Notes Filed: 12/26/2024 11:14 Note Text: ED Follow Up: Patient discharged from [facility] ED on 12/24/24. 1. How are you feeling since your ED visit? Left message requesting patient call office back. Have your symptoms improved or resolved? Left message 2. Were you prescribed any medications while in the ED or advised to stop any medication? Left message - If yes, were you able to fill your prescriptions? Left message -if stopped medication, what was the medication? Left message 3. Were you advised to schedule a follow up appointment with your provider? Left message - If no, Do you feel like you need an appointment scheduled? Left message - If yes, Do you need this scheduled now or has this already been scheduled? Left message 4. Were you able to contact the office or communication lecturer provider prior to your ED visit? left message 5. Is there anything else I can do for you today? Left message Jeremiah Alvarado MA [facility] 12-26-2024 History of Present illness Narrative ED Follow Up: Patient discharged from [facility] ED on 12/24/24. 1. How are you feeling since your ED visit? Left message requesting patient call office back. Have your symptoms improved or resolved? Left message 2. Were you prescribed any medications while in the ED or advised to stop any medication? Left message - If yes, were you able to fill your prescriptions? Left message -if stopped medication, what was the medication? Left message 3. Were you advised to schedule a follow up appointment with your provider? Left message - If no, Do you feel like you need an appointment scheduled? Left message - If yes, Do you need this scheduled now or has this already been scheduled? Left message 4. Were you able to contact the office or communication lecturer provider prior to your ED visit? left message 5. Is there anything else I can do for you today? Left message Jeremiah Alvarado MA documented in this encounter [facility] 12-26-2024 Note Patient Outreach (AG FAMPLE) RDUY BRYANT II ([id number]) 1995 M Date Time Provider Department 12/26/24 ESTEFANÍA VO During your visit today, we recorded the following information about you: Jeremiah Alvarado MA 12/26/2024 11:14 AM Signed ED Follow Up: Patient discharged from [facility] ED on 12/24/24. 1. How are you feeling since your ED visit? Left message requesting patient call office back. Have your symptoms improved or resolved? Left message 2. Were you prescribed any medications while in the ED or advised to stop any medication? Left message - If yes, were you able to fill your prescriptions? Left message -if stopped medication, what was the medication? Left message 3. Were you advised to schedule a follow up appointment with your provider? Left message - If no, Do you feel like you need an appointment scheduled? Left message - If yes, Do you need this scheduled now or has this already been scheduled? Left message 4. Were you able to contact the office or communication lecturer provider prior to your ED visit? left message 5. Is there anything else I can do for you today? 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] 04/18/2008 CONGENITAL PES PLANUS [Q66.50] 04/18/2008 First Degree Heart Block [I44.0] 12/29/2009 Acne [L70.9] 10/19/2011 Vasovagal syncope [R55] 09/29/2016 Incomplete right bundle branch block (RBBB) det*10/14/2022 Dizziness and giddiness [R42] 08/10/2022 Pre-syncope [R55] 10/14/2022 Headache, unspecified [R51.9] 05/20/2023 Diagnosed: 05/20/2023 Encounter Status:Closed by JEREMIAH ALVARADO on 12/26/24 [facility] 12-24-2024 Discharge summary [facility] 12-24-2024 Radiology Diagnostic study note [facility] Imaging Services [address] [place] [address] Brain/Head without Contrast MR#: [id number] Acct: [id number] Name: RUDY BRYANT II Rep #: [id number] : 1995 M 29 From: Bharathi Avina MD PCP: Care Physician,No Primary Status: REG ER Study:Brain/Head without Contrast Date of Exa m: 12/24/24 Exam# [id number] Ordering Dr: Jesica Sloan MD EXAM: NONCONTRAST CT SCAN OF THE HEAD CLINICAL HISTORY: Pain, headache, nausea and vomiting COMPARISON: August 04, 2022 TECHNIQUE: Serial axial series through the head were obtained without contrast. 2-D coronaland sagittal reformats were then obtained. FINDINGS: Brain: There is no acute large territorial infarct, intracranial hemorrhage, midline shift or mass effect. The sella and pineal gland regions appear unremarkable. There is no evidence of cerebellar tonsillarherniation. Ventricles: There is no acute hydrocephalus. Basilar cisterns are patent. Paranasal sinuses: Well-aerated Mastoid air cells: Well-aerated. Calvarium: The bony calvarium is intact. Orbits: The bilateral globes are symmetric, without retrobulbar compressive masslesion or hemorrhage. CT/Brain/Head without Contrast IMPRESSION: No acute intracranial pathology. Reading Location: [facility] CC: Dr. Rudy Sloan MD; No Primary Care Physician ~ Speech And Hearing Director: Signed [facility] 06-14-2024 Note HNO ID: [id number] Author: HONEY BAY LPN Service: ? Author Type: LICENSED NURSE Type: Progress Notes Filed: 06/14/2024 12:00 Note Text: ED Follow-Up Note Provider Action / FYI: Call completed by: ERNA Patient seen in ED: Out of Network ED Contact made with Patient: No, left message. Honey Bay LPN June 14, 2024 12:00 PM [facility] 06-14-2024 History of Present illness Narrative ED Follow-Up Note Provider Action / FYI: Call completed by: ERNA Patient seen in ED: Out of Network ED Contact made with Patient: No, left message. Honey Bay LPN June 14, 2024 12:00 PM documented in this encounter [facility] 06-14-2024 Note Patient Outreach (AG FAMPLE) RUDY BRYANT II ([id number]) 1995 M Date Time Provider Department 06/14/24 [...] Reason for Visit: ED Follow-up [821] Cmt: [facility] 06/08/2024 Prescriptions as of 06/14/2024 - [...] Encounter Status:Closed by HONEY BAY on 06/14/24 [facility] 06-12-2024 Note HNO ID: [id number] Author: LYUBOV STRATTON MA Service: ? Author Type: Oim Consultant Type: Progress Notes Filed: 06/12/2024 14:56 Note Text: ED Follow Up: Patient discharged from [facility] ED on 06/08/2024. 1. How are you [...] you able to contact the office or communication lecturer provider prior to your ED visit? Not applicable 5. Is there anything else I can do for you today? Not applicable Left message on patients vm to contact office if he needs anything. Lyubov Stratton MA [facility] 06-12-2024 History of Present illness Narrative ED Follow Up: Patient discharged from [facility] ED on 06/08/2024. 1. How are you [...] you able to contact the office or communication lecturer provider prior to your ED visit? Not applicable 5. Is there anything else I can do for you today? Not applicable Left message on patients vm to contact office if he needs anything. Lyubov Stratton MA documented in this encounter [facility] 06-12-2024 Note Patient Outreach (AG FAMPLE) RUDY BRYANT II ([id number]) 1995 M Date Time Provider Department 06/12/24 ESTEFANÍA VO During your visit today, we recorded the following information about you: Lyubov Stratton MA 06/12/2024 2:56 PM Signed ED Follow Up: Patient discharged from [facility] ED on 06/08/2024. 1. How are you [...] you able to contact the office or communication lecturer provider prior to your ED visit? Not [...] Visit: ED OUTREACH [Other] Cmt: ED OUTREACH [facility] 06/08/2024 Prescriptions as of 06/12/2024 - benzonatate [...] Encounter Status:Closed by LYUBOV STRATTON on 06/12/24 [facility] 06-07-2024 History of Present illness Narrative Radiology Service Progress Note PATIENT NAME: Rudy Bryant II DATE OF SERVICE: June 07, [...] PATIENT PRESENTS WITH AN IMPLANTABLE OR ATTACHED ORNAMENTAL IRON WORKER: No RADIOLOGY DEPARTMENT: General X-ray: Exam(s) Completed: Chest X-Ray PERIPHERAL IV DATA: Not applicable SIGNED BY: RT Carole(Lottie) June 07, 2024 4:47 PM documented in this encounter [facility] 06-07-2024 Note HNO ID: [id number] Author: DINO MENDOZA RT(Lottie) Service: ? Author Type: Multiple Wire Sawyer Type: Progress Notes Filed: 06/07/2024 16:52 Note Text: Radiology Service Progress Note PATIENT NAME: Rudy Bryant II DATE OF SERVICE: June 07, [...] PATIENT PRESENTS WITH AN IMPLANTABLE OR ATTACHED ORNAMENTAL IRON WORKER: No RADIOLOGY DEPARTMENT: General X-ray: Exam(s) Completed: Chest X-Ray PERIPHERAL IV DATA: Not applicable SIGNED BY: Dino Mendoza, RT(R) June 07, 2024 4:47 PM [facility] 06-07-2024 Note HNO ID: [id number] Author: EDMOND BRUNNER MD Service: ? Author [...] or late onset fever. Edmond Brunner MD [facility] 06-07-2024 History of Present illness Narrative [...] Edmond Brunner MD documented in this encounter [facility] 10-31-2023 History of Present illness Narrative ED Follow Up: Patient discharged from [facility] ED on 10/28/2023. 1. How are you [...] you able to contact the office or communication lecturer provider prior to your ED visit? No 5. Is there anything else I can do for you today? No ED Follow Up: Patient discharged from [facility] ED on 10/28/2023. 1. How are you [...] you able to contact the office or communication lecturer provider prior to your ED visit? Left message for pt to call office back. 5. Is there anything else I can do for you today? Left message for pt to call office back. documented in this encounter [facility] 07-12-2023 History of Present illness Narrative ED Follow Up: Patient discharged from [facility] ED on 07/10/2023. 1. How are you [...] you able to contact the office or communication lecturer provider prior to your ED visit? Not applicable 5. Is there anything else I can do for you today? Not applicable Called lm on pt. Vm to contact office if he needs anything or would like to make a follow up apt. Lyubov Stratton MA documented in this encounter [facility] 07-10-2023 Discharge summary Note Date/Time July 10, 2023 4:47pm [facility] Medical Records Department [address] [place] [address] Emergency Department Summary 07/10/23 MR#: [id number] Acct: [id number] Name: RUDY BRYANT II Rep #:[id number] : 1995 28 From: Pio Erickson MD [...] the goalie. He went down to reach fora ball and bring it in, when another [...] has been icing the area as well. [facility] Medical History Heart block Irregular heart beat [...] to 2 different hand surgeons in the [facility] for follow-up within a week. I offered to write him for stronger pain medications but he declined and would like to take lljl-aux-chgxkvp analgesics. He will continue ice and elevation at home. I feel he can be discharged to follow-up. Return instructions to the emergency department were reviewed. Disposition is discharged home in stable condition. Management Discussion w/another healthcare provider: Dock Attendant (Dr. Perez, Orthopaedics) Discharge Plan Triage Chief [...] in approximately 1 week. You can take woow-yck-scpljfv medications as needed for pain. Disposition Disposition: Home, Self Care What to do if you have Problems For any increased pain, shortness of breath, bleeding, nausea or vomiting, chestpain, or any unexpected problems, contact your Primary Care Provider. Call [facility] ([phone]) or report to the closest Emergency Room. Call 911 if necessary. 07/10/23 1800 <Electronically signed by Pio Erickson MD> Cosigner Signature (if applicable): CC: No Primary Care Physician ~ Signed [facility] Work Phone: [phone] 540-371809-19-2023 History of Present illness Narrative* Sherrill Luo, MARY.CLOTH SHEARER - 02/01/2023 1:46 PM EDT This note was created using NoteWriter. Subjective Rudy Bryant II is a 27 year old [...] history is provided by the patient. No multi disciplined language analyst was used. Wrist/forearm Injury The incident occurred [...] No head injury No LOC Sherrill Luo APRN.CLOTH SHEARER [facility] History of Present illness Narrative* Kourtney Valerio RT(R) - 02/01/2023 12:10 PM EDT Radiology Service Progress Note PATIENT NAME: Rudy Bryant II DATE OF SERVICE: February 01, [...] 01, 2023 12:01 PM [facility] Miscellaneous Notes* Telephone Encounter - Lyubov Stratton MA - 10/14/2022 3:56 PM EDT Spoke to [facility]. She will fax over medical records for ER . Lyubov Stratton MA documented in this [facility]-2023 Instructions* Patient Instructions* Estefanía Vo APRN.CNP - 10/14/2022 10:25 AM EDT [facility] Cardiac testing, Sleep services, and pulmonary testing, please jahaira [phone] documented in this encounterK[facility] History of Present illness Narrative* Estefanía Vo APRN.CNP - 10/14/2022 9:51 AM EDT Images from the original note were not included. [facility] Estefanía Vo GREENHOUSE STAFF-CLOTH SHEARER [address] [place] [address] Dept Dept. Visit Date: October 14, 2022 Mr.Bradley Bernard Bryant II Date of : 1995 MRN/E #: [id number] Chief Complaint: Patient presents with: Establish Care: Was dx with heart murmer. Needs note to clear him to work. Last time seen spanish interpreter/translator was about 2 years ago. Has apt .with spanish interpreter/translator in March (Cant remember name) last PCP was in [place] about 3 years ago. Said it is [facility] doc. History of Present Illness Rudy Bryant II is a 27 year old male presents today as a new patient and to discuss clearance for work from a cardiac standpoint. He states he has had a heart murmur since he was "little". He was following with a spanish interpreter/translator for vasovagal syncope, but hasn't seen anyone in 5 years (followed with Dr. Mi). He is scheduled with a spanish interpreter/translator but can't be seen until March. He hasn't had a PCP in about 3 years. Per chart review, he has a history of a first degree heart block but there is no documentation about a heart murmur. He was in [place] [facility] in July of this year for complaints of dizziness and near syncope. He states he ended up being dehydrated and once he received fluids he felt better. He does report that his mother at the age of 51 from a possible stroke? His father has a history of heart disease and had a CA at the age of 50 and two TIAs. He states none of his siblings have any cardiac problems. The history is provided by the patient. No multi disciplined language analyst was used. PAST MEDICAL HISTORY Diagnosis Date [...] 110/60 Pulse 65 Temp 97.7 Ht 6' 2" (1.88m) Wt 186 lb (84.4kg) SpO2 98% [...] 14, 2022 9:51 AM documented in [facility] History of Present illness Narrative* Edmond Brunner MD - 08/04/2022 2:09 PM EDT [facility] Care Triage Note: Patient presents to the [facility] with complaint of feeling dizzy/light- headed and almost passing out at work today. He had a bad headache yesterday. Denies chest pain or shortness of breath. No recent injury. Patient advised further evaluation in the emergency room. He will go to [facility]. documented in this [facility] History of Present illness Narrative* Kourtney Valerio RT(R) - 06/10/2021 9:30 AM EST Radiology Service Progress Note PATIENT NAME: Rudy Bryant II DATE OF SERVICE: June 10, [...] 10, 2021 9:25 AM documented [facility] Author Rudy Sloan [facility] Note Date/Time December 24, 2024 9: 10am [facility] Medical Records Department [address] [place] [address] Emergency Department Summary 12/24/24 MR#: [id number] Acct: [id number] Name: RUDY BRYANT II Rep #:[id number] : 1995 29 From: Rudy Sloan MD PCP: Care Physician,No Primary Status :REG ER Location: ED HPI History of Present Illness Chief Complaint: Headache Narrative Narrative: 29-year-old male presenting for headache. States he woke up with this yesterdaywas not severe but at times the headache would get worse and caused him to vomitthroughout the day yesterday. Headache is persisting this morning although he has not vomited this morning. He would take Tylenol off-and-on throughout the day yesterday seem to respond to it improved until he got worse when he would vomit. He states at times he was dizzy/near syncopal, which felt like lightheadedness, mostly with standing so he was trying to drink plenty of water. He denies any syncope or disequilibrium, vertiginous symptoms, and the vomitingwas more associated with a headache than the dizziness. He denies any neck painor stiffness or fever/chills. He denies any recent head injury. Denies any recent illness or avtd-jsj-dkosnvs medications other than Tylenol for the headache. Denies any photophobia or vision changes. No numbness, tingling, or other focal neurologic symptoms. States he has had headaches like this maybe once before, otherwise headaches are relatively uncommon but he does get them from time to time. He has a sibling sister who takes prescription medication because of migraines. No one in the family with a brain mass or cerebral aneurysm that he is aware of. [facility] Medical History Irregular heart beat Heart block Home Medications ?Medication ?Instructions ?Recorded ?Last Taken ?Type NK 12/24/24 Unknown History Allergy/AdvReac Type Severity Reaction Status Date / Time No Known Allergies Allergy Verified 12/24/24 06:58 Family History no significant family his Social History Smoking Status: Never smoker substance use type: does not use ROS ROS ED Constitutional Constitutional ED: Denies chills or fever(s) Eyes Eyes: Denies blurry vision, change in vision, diplopia, photophobia or tunnel vision ENT ENT ED: Denies rhinorrhea or sore throat Cardiovascular Cardiovascular: Reports lightheadedness; Denies chest pain, leg edema, palpitations or syncope Respiratory/Chest Respiratory/Chest: Denies cough or dyspnea Gastrointestinal Gastrointestinal: Reports nausea and vomiting; Denies abdominal pain or diarrhea Genitourinary Genitourinary ED: Denies dysuria, hematuria or urinary frequency Musculoskeletal Musculoskeletal: Denies back pain or neck pain Integumentary Denies abscess or rash Neurologic Neurologic: Reports headache(s); Denies abnormal gait, abnormal hearing, abnormal speech, disequilibrium, dizziness, paresthesias, seizures, syncope or weakness Psychiatric Psychiatric: Denies suicidal thoughts EXAM Physical Exam Const Vital Signs: 12/24/24 06:58 12/24/24 06:58 Temperature 97.9 F Temperature Source Oral Pulse Rate 51 L Respiratory Rate 18 Respiratory Effort Normal Respiratory Pattern Normal Blood Pressure 137/89 H Blood Pressure Mean 105 Pulse Ox 99 Oxygen Delivery Method Room Air Positive well nourished and well developed Constitutional Narrative: Keenly alert well-appearing no distress General Appearance ED: well developed and NAD HEENT Reports moist mucous membranes normocephalic and atraumatic Eyes PERRL and EOMs intact bilaterally Neck full ROM and supple Resp normal respiratory effort and clear to auscultation bilaterally Cardio regular rate, regular rhythm and no murmurs GI non-tender and non-distended Auscultation: normoactive bowel sounds Palpation: soft Back/Spine no CVA tenderness General Back: other FROM Extremity normal to inspection General Extremety ED: Negative for edema, pulses abnormal or tenderness General Extremity: Negative for edema or pulses abnormal Neuro oriented x3, CN's II-XII intact bilaterally and no sensory deficits noted Neuro Narrative: Normal kultbs-na-trzo in addition bilaterally. 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 Normal response to questions. Sensorium / Orientation: awake and alert Motor Exam: strength 5/5 throughout Psych mental status grossly normal Skin no rashes or lesions noted and no wounds MDM MDM MDM Narrative Medical decision making narrative: Patient states he has never had any brain imaging for headaches in the past. Reasonable to obtain. Also will give him some IV Reglan and obtain an EKG, his vital signs are normal with heart rate at 51 and blood pressure 137/89, and at that measurement, blood pressure not likely causing his headache. EKG my interpretation is normal. He has an RSR' which can be normal at this age, and it is unchanged compared with prior. I reviewed the imaging, as well as the result which I agree with, it is negative for anything acute. I do not think heneeds CT angiography of his intracranial vessels at this time given the symptomsand lack of a thunderclap headache, syncope, or other symptoms to suggest a ruptured aneurysm. Prior to treatment his headache was a 5/10, after Reglan it did not change markedly so he was then given Toradol after confirming that his last creatinine was normal. After this he feels much better his headache is gone. He has a primary care physician and he just cannot remember who it is. Advised to follow-up. He is comfortable with that plan and asking for a work note. Radiography Diagnostic Testing: Clinical Impression(s) from Imaging Studies Brain CT 12/24/24 07:07 IMPRESSION: No acute intracranial pathology. Reading Location: [facility] Rhythm Strip Rhythm Strip: Sinus Rhythm Rate: 50 Ectopy: None EKG Initial EKG: Attestation: I personally reviewed and interpreted this EKG as follows: Interpretation: Sinus Rhythm and No Acute Injury Pattern Comments: Nml axis & intervals; nml EKG Discharge Plan Triage Chief Complaint: Headache Other Complaint: General Illness ED Provider: Rudy Sloan Dx/Rx/DC Orders Clinical Impression: Acute headache Instructions: ED Headache Unspecified Prescriptions: No Action NK Stand Alone Forms: ED Work / School Excuse Primary Care Provider: Care Physician,No Primary Referrals: Doctor,Your [Non-Staff] - 1-2 Weeks Print Language: Croatian Disposition Disposition: Home, Self Care What to do if you have Problems For any increased pain, shortness of breath, bleeding, nausea or vomiting, chestpain, or any unexpected problems, contact your Primary Care Provider. Call [facility] ([phone]) or report to the closest Emergency Room. Call 911 if necessary. 12/24/24 0910 <Electronically signed by Rudy Sloan MD> Cosigner Signature (if applicable): CC: No Primary Care Physician ~ Signed [facility] Work Phone: Evaluation note* Diagnosis Near syncope- Primary Syncope and collapse documented in this encounter [facility] noteNo assessment information availableWooRegency Hospital [facility] Work Phone: Evaluation note* Diagnosis First degree heart block- Primary First degree atrioventricular block Incomplete right bundle branch block (RBBB) determined by electrocardiography Near syncope Syncope and collapse documented in this encounter [facility] note* Diagnosis Wrist pain, right- Primary Pain in joint, forearm Fall on same level from slipping, tripping or stumbling, initial encounter documented in this encounter [facility] note* Diagnosis Wrist pain, right Pain in joint, forearm documented in this encounter [facility] note* Diagnosis Cough documented in this encounter [facility] note* Diagnosis Acute cough- Primary Acute cough documented in this encounter [facility] note* Diagnosis [facility] Additional Instructions Follow-up with a hand surgeon in approximately 1 week. You can take vyrh-fmh-fabwdze medications as needed for pain.[facility] Work Phone: Reason for referral (narrative)* Outpatient Procedure (Routine) - Pending Review Specialty Diagnoses / Procedures Referred By Contac t Referred To Contact [facility] Diagnoses First degree heart block Incomplete right bundle branch block (RBBB) determined by electrocardiography Near syncope Procedures ECHO ECHO TTHRC R-T 2D W/WOM-MODE COMPL SPEC&COLR D Estefanía Vo, GREENHOUSE STAFF.CLOTH SHEARER [address] [place] [address] [facility] [address] [place] [id number] Referral ID Status Reason Start Date Expiration Date Visits Requested Visits Authorized [id number] Pending Review Auto-Generat ed Referral 10/14/2022 10/14/2023 1 1 [facility] for referral (narrative)* Diagnostic Procedure Only (Urgent) - Pending Review Specialty Diagnoses / Procedures Referred By Contac t Referred To Contact XR IMAGING Diagnoses Wrist pain, right Procedures XR WRIST GENERAL 3V PA/LAT/OBL RIGHT RADEX WRIST COMPLETE MINIMUM 3 VIEWS Sherrill Luo APRN.CLOTH SHEARER [address] [place] [address] [place] [address] Referral ID Status Reason Start Date Expiration Date Visits Requested Visits Authorized [id number] Pending Review Auto-Generat ed Referral 02/01/2023 03/02/2024 1 1 [facility] for referral (narrative)* Diagnostic Procedure Only (Urgent) - Closed Specialty Diagnoses / Procedures Referred By Contac t Referred To Contact XR IMAGING Diagnoses Wrist pain, right Procedures XR WRIST GENERAL 3V PA/LAT/OBL RIGHT RADEX WRIST COMPLETE MINIMUM 3 VIEWS Sherrill Luo APRN.CLOTH SHEARER [address] [place] [address] [place] [address] Referral ID Status Reason Start Date Expiration Date V isits Requested Visits Authorized [id number] Closed Auto-Generate d Referral 02/01/2023 03/02/2024 1 1 [facility] for referral (narrative)No reason for referral information availableWWayne Hospital Work Phone: Reason for visit Narrative* Diagnostic Procedure Only (Urgent) - Closed Specialty Diagnoses / Procedures Referred By Contac t Referred To Contact XR IMAGING Diagnoses Wrist pain, right Procedures XR WRIST GENERAL 3V PA/LAT/OBL RIGHT RADEX WRIST COMPLETE MINIMUM 3 VIEWS Sherrill Luo APRN.CLOTH SHEARER [address] [place] [address] [place] [address] Referral ID Status Reason Start Date Expiration Date V isits Requested Visits Authorized [id number] Closed Auto-Generate d Referral 02/01/2023 03/02/2024 1 1 [facility] Chief Complaint and Reason for Visit Chief Complaint PE DRUG SCREEN/WILLB URT DIZZINESS Chief Complaint PE DRUG SCREEN/ GOJO RIGHT PINKY Chief Complaint Admit Date GENERAL ILLNESS December 24, 2024 6: 57am Advance Directives No Advanced Directives Records Found Advance Directive Response Recorded Date/ Time Living Will No August 04, 2022 4:30pm Power of Stationary Fireman No August 04 4:30pm Advance Directive Response Recorded Date/ Time Living Will No July 10, 024 5:48pm Power of Stationary Fireman No July 10, 2023 5:48pm Advance Directive Response Recorded Date/ Time Do you have a Healthcare Power of Stationary Fireman? No December 24, 2024 6:58am Summary Purpose Family History No Family History [...] or prosecute any alcohol or drug abuse patient.[facility] the event this information is protected by the Federal Confidentiality of Alcohol and Drug Abuse Patient Records regulations: The Federal rules restrict any use of the information to criminally investigate or prosecute any alcohol or drug abuse patient.[facility] the event this information is protected by the Federal Confidentiality of Alcohol and Drug Abuse Patient Records regulations: The Federal rules restrict any use of the information to criminally investigate or prosecute any alcohol or drug abuse patient.[facility] the event this information is protected by the Federal Confidentiality of Alcohol and Drug Abuse Patient Records regulations: The Federal rules restrict any use of the information to criminally investigate or prosecute any alcohol or drug abuse patient.[facility] the event this information is protected by the Federal Confidentiality of Alcohol and Drug Abuse Patient Records regulations: The Federal rules restrict any use of the information to criminally investigate or prosecute any alcohol or drug abuse patient.[facility] the event this information is protected by the Federal Confidentiality of Alcohol and Drug Abuse Patient Records regulations: The Federal rules restrict any use of the information to criminally investigate or prosecute any alcohol or drug abuse patient.[facility] the event this information is protected by the Federal Confidentiality of Alcohol and Drug Abuse Patient Records regulations: The Federal rules restrict any use of the information to criminally investigate or prosecute any alcohol or drug abuse patient.[facility] the event this information is protected by the Federal Confidentiality of Alcohol and Drug Abuse Patient Records regulations: The Federal rules restrict any use of the information to criminally investigate or prosecute any alcohol or drug abuse patient.[facility] the event this information is protected by the Federal Confidentiality of Alcohol and Drug Abuse Patient Records regulations: The Federal rules restrict any use of the information to criminally investigate or prosecute any alcohol or drug abuse patient.[facility] the event this information is protected by the Federal Confidentiality of Alcohol and Drug Abuse Patient Records regulations: The Federal rules restrict any use of the information to criminally investigate or prosecute any alcohol or drug abuse patient.[facility] the event this information is protected by the Federal Confidentiality of Alcohol and Drug Abuse Patient Records regulations: The Federal rules restrict any use of the information to criminally investigate or prosecute any alcohol or drug abuse patient.[facility] the event this information is protected by the Federal Confidentiality of Alcohol and Drug Abuse Patient Records regulations: The Federal rules restrict any use of the information to criminally investigate or prosecute any alcohol or drug abuse patient.[facility] the event this information is protected by the Federal Confidentiality of Alcohol and Drug Abuse Patient Records regulations: The Federal rules restrict any use of the information to criminally investigate or prosecute any alcohol or drug abuse patient.[facility] the event this information is protected by the Federal Confidentiality of Alcohol and Drug Abuse Patient Records regulations: The Federal rules restrict any use of the information to criminally investigate or prosecute any alcohol or drug abuse patient.[facility] Care Teams (unrecognized sec tion and content) [...] Dr. Gabriel Johnson , Emergency Provider Active Sales And Service Advisor Relationship Specialty Start Date End Date Estefanía Vo, GREENHOUSE STAFF.CLOTH SHEARER [address] [place] [place], [place] [phone] PCP - General Family Medicine 10/14/22 Sales And Service Advisor Relationship Specialty Start Date End Date Estefanía Vo, GREENHOUSE STAFF.CLOTH SHEARER [address] [place], [place] [phone] PCP - General Family Medicine 10/14/22 Sales And Service Advisor Relationship Specialty Start Date End Date Estefanía Vo, GREENHOUSE STAFF.CLOTH SHEARER [address] [facility], [place] [phone] PCP - General Family Medicine 10/14/22 Team Status: Inactive Member Role Status Dates No Primary Care Physician Primary Care Provider, Refer ring Provider Active Rommel ALTMAN PA Attending Provider Active Team Status: Inactive Member Role Status Dates No Primary Care Physician Primary Care Provider Active Pio Erickson MD Emergency Provider Active Sales And Service Advisor Relationship Specialty Start Date End Date Estefanía Vo, GREENHOUSE STAFF.CLOTH SHEARER [address] [facility] [place] [phone] PCP - General Family Medicine 10/14/22 Sales And Service Advisor Relationship Specialty Start Date End Date Estefanía Vo, GREENHOUSE STAFF.CLOTH SHEARER [address] [facility], [place] [phone] PCP - General Family Medicine 10/14/22 Sales And Service Advisor Relationship Specialty Start Date End Date Estefanía Vo, GREENHOUSE STAFF.CLOTH SHEARER [address] [facility] [place] [id number] PCP - General Family Medicine 10/14/22 Sales And Service Advisor Relationship Specialty Start Date End Date Estefanía Vo, GREENHOUSE STAFF.CLOTH SHEARER [address] [place] [address] PCP - General Family Medicine 10/14/22 Sales And Service Advisor Relationship Specialty Start Date End Date Estefanía Vo, GREENHOUSE STAFF.CLOTH SHEARER [address] [place], [place] [phone] PCP - General Family Medicine 10/14/22 Team Status: Active Member Role/Relationship Status Dates No Primary Care Physician Primary Care Provider Active Team Status: Inactive Member Role/Relationship Status Dates No Primary Care Physician Primary Care Provider Active Start: December 24, 2024 End: December 24, 2024 Dr. Rudy Sloan MD Emergency Provider Active Start: December 24, 2024 End: December 24, 2024 Sales And Service Advisor Relationship Specialty Start Date End Date Estefanía Vo, GREENHOUSE STAFF.CLOTH SHEARER [address] [place], [place] [phone] PCP - General Family Medicine 10/14/22 Goals (unrecognized section and content) Goals may be documented in a n alternate sectionGoals may be documented in an alternate sectionGoals may be documented in an alternate section Reason for Visit (unrecogniz ed section and content) Reason Comments Establish Care Was dx with heart mu rmer. Needs note to clear him to work. Last time seen spanish interpreter/translator was about 2 years ago. Has apt .with spanish interpreter/translator in March (Cant remember name) last PCP was in [place] about 3 years ago. Said it is [facility] doc. Specialty Diagnoses / Procedures Referred By Anuel t Referred To Contact FAMILY MEDICINE Diagnoses Financial Assistance - Establish Care-work clearance for heart murmur Procedures Financial [facility] - [facility] [address] Referral ID Status Reason Start Date Expiration Date Visits Requested Visits Authorized [id number] Authorized Financial Clearance Required - Self Pay Patient Cleared - Qualified 100% FAS 09/28/2022 12/27/2022 99 99 Reason Comments Patient Update Reason Comments Wrist/forearm Injury R landed on hand x last night Reason Onset Date Comments ED [facility]RE[facility] Reason Comments Cough SHAHID, fever x 1 week Reason Onset Date Comments ED OUTREACH 06/12/2024 [facility] 06/08/2024 Reason Onset Date Comments ED Follow-up 06/08/2024 [facility] 2024 Reason Onset Date Comments ED Follow-up 12/26/2024 [facility] 12/24/24 Reason Onset Date Comments ED Follow-up 12/24/2024 [facility] 2024 (unrecognized sect ion and content) No Status Records FoundNo Status Records FoundNo Status Records Found INFORMATION SOURCE (unrecogn ized section and content) DATE CREATED AUTHOR 06/09/2024 [facility] DATE CREATED AUTHOR AUTHOR'S ORGANIZ ATION 12/30/2024 [facility] DATE CREATED AUTHOR AUTHOR'S ORGANIZ ATION 12/30/[address] [facility] FOR RECORDS PERTAINING TO PATIENTS WHO [...] BE BASED ON THE PRIMARY CLINICAL RECORDS. [facility]. provides no warranty or guarantee of the accuracy or completeness of information in this document.
[2025-03-31 10:26] VITALS: BP 132/85; PULSE 69; RESP 16; TEMP 36.4; O2SAT 100
[2025-04-02 16:09] LABS: Lyme Scn Total Ab w/Rflx Negative (Negative)
== END 2025-03-31 10:26 | disposition home or self-care (01) ==
LOC: ED 10:21
PROVIDERS: Emergency Provider Emergency Medicine; Visit Provider Emergency Medicine
DX: S70.362A Insect bite (nonvenomous), left thigh, initial encounter (principal); W57.XXXA Bitten or stung by nonvenomous insect and other nonvenomous arthropods, initial encounter; Y92.89 Other specified places as the place of occurrence of the external cause; R10.9 Unspecified abdominal pain
CPT/HCPCS: 86618; 99282

== ENCOUNTER 2025-05-04 19:09 | Emergency (ER) | payer OTHER, SELFPAY ==
[2025-05-04 19:10] VITALS: BP 132/83; PULSE 83; RESP 16; TEMP 36.8; O2SAT 99; BMI 26.6
--- NOTE | 2025-05-04 19:24 | ED.VIS.LOWEX ---
HPI History of Present Illness HPI Narrative: Patient presents with left knee pain that began today while playing soccer. Patient states he collided with another player as he was attempting to kick the ball. Patient states his knee twisted. Patient describes the pain as sharp. Patient states it is worse with movement. Patient states it is better with rest. Patient denies any paresthesias or weakness. Patient denies any other injuries. Chief Complaint: Lower Extremity Injury Informant: patient Occured/Mechanism Comment: Twisted knee while playing soccer Onset/Context/Timing Onset: Today Context: Sudden Onset Timing: Continuous Quality of Pain: Sharp Location: Left knee Worsened by: Movement Relieved by: Rest Associated Symptoms Associated Symptoms: Negative for Parasthesia, Weakness or Loss of Funtion [facility] Medical History Irregular heart beat Heart block Home Medications ?Medication ?Instructions ?Recorded ?Last Taken ?Type NK 12/24/24 Unknown History Allergy/AdvReac Type Severity Reaction Status Date / Time No Known Allergies Allergy Verified 05/04/25 19:11 Social History Smoking Status: Never smoker substance use type: does not use ROS ROS ED Constitutional Constitutional ED: Denies chills or fever(s) Eyes Eyes: Denies blurry vision or change in vision ENT ENT ED: Denies rhinorrhea or sore throat Cardiovascular Cardiovascular: Denies chest pain or palpitations Respiratory/Chest Respiratory/Chest: Denies cough or dyspnea Gastrointestinal Gastrointestinal: Denies nausea or vomiting Genitourinary Genitourinary ED: Denies dysuria or hematuria Musculoskeletal Musculoskeletal: Denies back pain or neck pain Integumentary Denies abscess or rash Neurologic Neurologic: Denies headache(s) or weakness Allergic/Immunologic Allergic/Immunologic ED: Denies mouth swelling or urticaria EXAM Physical Exam Const Vital Signs: 05/04/25 19:10 Temperature 98.2 F Temperature Source Oral Pulse Rate 83 Respiratory Rate 16 Blood Pressure 132/83 H Blood Pressure Mean 99 Pulse Ox 99 Oxygen Delivery Method Room Air Positive well nourished and well developed Constitutional Narrative: BMI is 26.6. General Appearance ED: well developed and NAD HEENT Reports moist mucous membranes Neck full ROM and supple Extremity Extremity Narrative: There is tenderness along the medial joint line of the left knee. There is no effusion noted. Range of motion was limited in flexion of the left knee secondary to pain. Strength is 5/5 bilaterally in the lower extremities. Extensor mechanism is intact. There is mild laxity with valgus testing. Keegan's test was negative. Sensation was intact to light touch bilaterally in the lower extremities. Posterior tibial pulse was 2+ on the left. Neuro oriented x3, CN's II-XII intact bilaterally, moves all extremities and no sensory deficits noted Sensorium / Orientation: alert Motor Exam: strength 5/5 throughout Psych mental status grossly normal MDM MDM MDM Narrative Medical decision making narrative: Differential diagnose include fracture, sprain, and contusion. X-rays of the left knee will be obtained to assess for fracture. Radiography Diagnostic Testing: X-rays of the left knee were obtained. There are 4 views. On my independent interpretation, there is no acute fracture noted. There is no loose body noted. Radiologist also interpreted the x-ray and agrees. Treatment and Re-Evaluation Narrative: Patient was advised of his findings. Patient states he does not need crutches at the present time. Patient was instructed to use ice to the area. Patient was instructed to take ibuprofen as needed for pain. Patient was instructed to follow-up with his primary care physician in 5 to 7 days. Patient understood and was agreeable with the plan. All questions were answered. Discharge Plan Triage Chief Complaint: Lower Extremity Injury ED Provider: Gabriel Johnson Dx/Rx/DC Orders Clinical Impression: Sprain of left knee, Elevated blood pressure reading Instructions: ED Knee Sprain, ED Knee Sprain Ligaments Prescriptions: No Action NK Primary Care Provider: Estefanía Lloyd NP Referrals: Care Physician,No Primary [Non-Staff, Medical] Estefanía Lloyd NP, METAL NUMERICAL CONTROL PROGRAMMER-C [Primary Care Provider, Family Practice] - 5-7 Days Print Language: Greek Disposition Disposition: Home, Self Care
--- NOTE | 2025-05-04 19:32 | RAD_ITS ---
PROCEDURE: KNEE 4 OR MORE VIEWS 05/04/2025 REASON FOR EXAM: INJURY/PAIN TECHNIQUE: Procedure Code: RADKN Modality: DX Procedure: KNEE 4 OR MORE VIEWS FINDINGS: No acute fracture or dislocations. No significant degenerative changes. No large joint effusion. No acute soft tissue abnormalities. No radiographic foreign body. RAD/Knee 4 or More Views IMPRESSION: No acute fracture or dislocations. Reading Location: [id number]
--- OUTSIDE RECORDS SUMMARY | 2025-05-04 19:33 | XMS RPT_ITS | CCD ---
Author Organization [facility] Care Team Providers Care Load Out Supervisor Name Role Phone Unavailable Primary Care Provider Unavailabl e Care Physician, No Primary Primary Care Provider Unavailable Care Physician, No Primary Referring Provider Un available AGAPITO Mireles Attending Provider Gabino CHURN TENDER.Estefanía STOKES Primary Care Provider Care Physician, No Primary Primary Care Provider Unavailable Care Physician, No Primary Referring Provider Un available AGAPITO Degroot Attending Provider [phone] Gabino CHURN TENDER.Estefanía STOKES Primary Care Provider Unavailable Primary Care [...] more than 6 in 24 hours. [place] (Nk) (1 source) Start: 12-24-2024 [place] (Nk) Active December 24, 2024 12:00am perflutren [...] Drug Class(es) Dates Sig (Normalized) Sig (Original) [id number] 200 actuat albuterol 0.09 mg/actuat metered dose [...] 12 Lead EKGon 12-24-2024 12 Lead EKG [facility] Cardiovascular Services [address] [place] [address] 12 Lead EKG 12/24/24 0717 MR#: [id number] Acct: [id number] Name: KAZ BRYANTJEFF LAUGHLIN II Rep #: [id number] : 1995 29 From: Rajan Rodriguez MD [...] ECG Confirmed by LAXMI MCGUIRE, RAJAN ([id number]), photographic editor SENAIT LEDESMA ([id number]) on 12/24/2024 1:17:23 PM Referred By: Confirmed By: RAJAN RODRIGUEZ MD 12/24/24 1317 Date Rajan Rodriguez MD CC: Dr. Rudy Sloan MD; No Primary Care Physician Signed Normal [facility] Brain/Head without Contrasto n 12-24-2024 Brain/Head without Contrast [facility] Imaging Services [address] [place] [address] Brain/Head without Contrast MR#: [id number] Acct: [id number] Name: RUDY BRYANT II Rep #: [id number] : 1995 M 29 From: Star Avina MD PCP: Care Physician,No Primary Status: REG ER Study: Brain/Head without Contrast Date of Exam: 12/14 06/09 Exam# [id number] Ordering Dr: Rudy Sloan MD EXAM: NONCONTRAST [...] Rudy Sloan MD; No Primary Care Physician Resource Engineer: Signed Normal [facility] Emergency Department Summary on 12-24-2024 Emergency Department Summary [facility] Medical Records Department [address] [place] [address] Emergency Department Summary 12/24/24 MR#: [id number] Acct: [id number] Name: ANNETTERUDYJEFF LAUGHLIN Rep #: [id number] : 1995 29 From: Rudy Sloan MD [...] head injury. Denies any recent illness or wzbj-qos-wcezmxf medications other than Tylenol for the headache. [...] cerebral aneurysm that he is aware of. [facility] Medical History Irregular heart beat Heart block [...] no sensory deficits noted Neuro Narrative: Normal wkemqh-rd-pamo in addition bilaterally. 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 Normal response to questions. Sensorium / Orientation: [...] are n (more content not included)... Normal [facility] Emergency Department Summary on 06-09-2024 Emergency Department Summary [facility] Medical Records Department [address] [place] [address] Emergency Department Summary 06/09/24 MR#: [id number] Acct: [id number] Name: RUDY BRYANT II Rep #: [id number] : 1995 29 From: Prabhjot Druan DO PCP: Care Physician,No Primary Status:REG ER [...] his persistent cough comes in for evaluation [facility] Medical History Irregular heart beat Heart block [...] effusion as (more content not included)... Normal [facility] Chest PA and Lateralon 06-08 Chest PA and Lateral [facility] Imaging Services [address] [place] [address] Chest PA and Lateral MR#: [id number] Acct: [id number] Name: RUDY BRYANT II Rep #: [id number] : 1995 M 29 From: Radha Marin PCP: Care Physician,No Primary Status: REG ER Study: Chest PA and Lateral Date of Exam: 06/08/24 Exam# [id number] Ordering Dr: Prabhjot Duran DO [id number] INDICATION: cough COUGH FOR 4-5 DAYS AFTER [...] Prabhjot Duran DO; No Primary Care Physician Resource Engineer: Signed Normal [facility] CNOVon 06-07-2024 CNOV Office Visit (WSTR ) RUDY BRYANT II ([id number]) 1995 M Date Time Provider Department 06/07/24 5:00 PM EDMOND BRUNNER [facility] During your visit today, we [...] Diagnosis:Acute cough [R05.1] Order(s):XR CHEST 2V FRONTAL/LAT [[id number]] Order #: [id number] FUTURE COVID AND INFLUENZA A/B AND RSV PCR, ROUTINE [[id number]] Order #: [id number]. #:[id number] benzonatate (TESSALON PERLE) 100 mg capsuleTake 1 [...] Status:Closed by EDMOND BRUNNER on 06/07/24 Normal [facility] COVID AND INFLUENZA A/B AND RSV PCR, ROUTINEon 06-07-2024 SARS-CoV-2 (COVID-19) RNA DAMIÁN+probe Ql (Unsp spec) SARS-COV-2 (AGENT OF COVID-19) RNA: Not detected INFLUENZA A RNA: Not detected INFLUENZA B RNA: Not detected RESPIRATORY SYNCYTIAL VIRUS (RSV) RNA: Not detected Normal [facility] Comment on above: Performed By: #### C VFLRS #### [facility] CLIA [id number] [address] [place] [address] [place] XR CHEST 2V [...] tissues: Unremarkable. IMPRESSION: No acute radiographic abnormality. Resource Engineer: PSCB Transcribe Date/Time: Jun 07 2024 4:53P Dictated by : TRINIDAD KRUEGER MD This examination was interpreted and the report reviewed and electronically signed by: TRINIDAD KRUEGER MD on Jun 07 2024 4:53PM EST [id number] Normal [facility] XR Chest PA and Lateralon IMPRESSION: No acute radiographic abnormality. Resource Engineer: PSCPalingen Transcribe Date/Time: Jun 07 2024 4:53P Dictated by : TRINIDAD KRUEGER MD This examination was interpreted and the report reviewed and electronically signed by: TRIINDAD KRUEGER MD on Jun 07 2024 4:53PM [...] soft tissues: Unremarkable. DIVISION OF RADIOLOGY Provider, [facility] - 06/07/2024 * * *Final Report* [...] Unremarkable. IMPRESSION IMPRESSION: No acute radiographic abnormality. Resource Engineer: [facility] Transcribe Date/Time: Jun 07 2024 4:53P Dictated by : TRINIDAD KRUEGER MD This examination was interpreted and the report reviewed and electronically signed by: TRINIDAD KRUEGER MD on Jun 07 2024 4:53PM EST [facility] Radiology Study observation (narrative) [facility] XR Chest PA and LateralOrder ed By: Ccf Provider on 06-07-2024 [facility] XR WRIST GENERAL 3V PA/LAT/O BL RIGHTon 02-01-2023 [facility] XR Wrist - right PA and Late ral and Obliqueon 02-01-2023 IMPRESSION: No radiographic evidence of acute osseous injury Resource Engineer: [facility] Transcribe Date/Time: Feb 01 2023 12:12P Dictated by : ANDRE LEAL MD This examination was interpreted and the report reviewed and electronically signed by: ANDRE LEAL MD on Feb 01 2023 12:16PM [facility] DIVISION OF RADIOLOGY * * *Final [...] spaces preserved. DIVISION OF RADIOLOGY Provider, Marilyn Moore - 02/01/2023 * * *Final Report* * [...] No radiographic evidence of acute osseous injury Resource Engineer: AMANDA Transcribe Date/Time: Feb 01 2023 12:12P Dictated by : ANDRE LAEL MD This examination was interpreted and the report reviewed and electronically signed by: ANDRE LEAL MD on Feb 01 2023 12:16PM EST [facility] Radiology Study observation (narrative) [facility] XR Wrist - right PA and Late ral and ObliqueOrdered By: Ccf Provider on 02-01-2023 [facility] Absolute lymphocyte countOrd ered By: Dr. Johnson on 08-04-2022 Lymphocytes Auto (Unsp spec) [#/Vol] 1.82 10*3/uL 0.83-4.51 [facility] Basophil percentageOrdered B y: Dr. Johnson on 08-04-2022 Basophils/100 WBC (Bld) 0.5 % 0-1 [facility] Chloride [Moles/Vol] 106 mmol/L 98-107 [facility] Eosinophils/100 WBC (Bld) 0.8 % 0-5 [facility] Glucose [Mass/Vol] 84 mg/dL 74-106 [facility] Neutrophils (Bld) [#/Vol] 3.8 10*3/uL 2.0-7.7 [facility] Neutrophils/100 WBC (Bld) 61.5 % 47-70 [facility] Potassium [Moles/Vol] 4.1 mmol/L 3.5-5.1 [facility] Sodium [Moles/Vol] 141 mmol/L 136-145 [facility] WBC (Bld) [#/Vol] 6.1 10*3/uL 4.4-11.0 [facility] Blood erythrocytes count (nu mber/volume)Ordered By: Dr. Johnson on 08-04-2022 RBC (Bld) [#/Vol] 5.03 10*6/uL 4.6-6.2 [facility] Blood hemoglobin measurement (mass/volume)Ordered By: Dr. Johnson on 08-04-2022 Hemoglobin (Bld) [Mass/Vol] 15.3 g/dL 13.0-16.5 [facility] Blood lymphocytes/100 leukoc ytesOrdered By: Dr. Johnson on 08-04-2022 Lymphocytes/100 WBC (Bld) 29.8 % 19-41 [facility] Blood monocytes/100 leukocyt esOrdered By: Dr. Johnson on 08-04-2022 Monocytes/100 WBC (Bld) 7.2 % 0-[address] [facility] Blood platelet mean volumeOr dered By: Dr. Johnson on 08-04-2022 Platelet mean volume (Bld) [Entitic vol] 10.0 fL 6.2-12.0 [facility] Determination of erythrocyte mean corpuscular volume (MCV)Ordered By: Dr. Johnson on 08-04-2022 MCV (RBC) [Entitic vol] 92.4 fL 80-[address] [facility] Hematocrit Auto (Bld) [Volum e fraction]Ordered By: Dr. Johnson on 08-04-2022 Hematocrit (Bld) [Volume fraction] 46.5 % 40-54 [facility] Laboratory - Chemistry and C hemistry - challengeOrdered By: Dr. Johnson on 08-04-2022 CO2 [Moles/Vol] 31.0 mmol/L 21.0-32.0 [facility] Urea nitrogen/Creatinine [Mass ratio] 14.5 mg/mg 10-20 [facility] Laboratory - Hematology and Cell countsOrdered By: Dr. Johnson on 08-04-2022 Erythrocyte distribution width (RBC) [Entitic vol] 41.6 fL 35.1-43.9 [facility] Erythrocyte distribution width (RBC) [Ratio] 12.3 % 11.6-14.6 [facility] Immature granulocytes/100 WBC (Bld) 0.200 % 0.0-0.9 [facility] Comment on above: IG% - Immature Granu locytes (promyelocytes, myelocytes and metamyelocytes) > 1% indicates that a LEFT SHIFT is Present. MCH (RBC) [Entitic mass] 30.4 pg 27.0-32.0 [facility] Nucleated RBC/100 WBC (Bld) [Ratio] 0 % 0-5 [facility] Auto (RBC) [Mass/Vol]Or dered By: Dr. Johnson on 08-04-2022 MCHC (RBC) [Mass/Vol] 32.9 g/dL 32-36 [facility] No Panel InformationOrdered By: Dr. Johnson on 08-04-2022 Troponin I High Sensitivity 3 pg/mL 3.0-78.0 [facility] Comment on above: Please Note: New Nora t Units and Gender Specific Reference Ranges. For more information see Policy Stat Procedure [facility] High Sensitivity Troponin (TNIH) and attachments. D-Dimer Quantitative (PE/DVT) < 0.27 FEU/ug/m 0.27-0.49 [facility] Comment on above: NORMAL D-Dimer level (<0.50) indicates no DVT or PE. Estimated Creatinine Clearance Calc 124.58 ml/min [facility] Estimated GFR (MDRD) Amer 120 mL/min >60 [facility] Comment on above: GFR Calc Estimated GFR (MDRD) Non-Af Amer 99 mL/min >60 [facility] Comment on above: Non- GFR Calc Platelets bldOrdered By: Dr. Johnson on 08-04-2022 Platelets (Bld) [#/Vol] 310 10*3/uL 150-450 [facility] Serum or plasma calcium fabiana urement (mass/volume)Ordered By: Dr. Johnson on 08-04-2022 Calcium [Mass/Vol] 9.7 mg/dL 8.5-10.1 [facility] Serum or plasma creatinine m easurement (mass/volume)Ordered By: Dr. Johnson on 08-04-2022 Creatinine [Mass/Vol] 0.96 mg/dL 0.70-1.30 [facility] Comment on above: The validity of the calculated GFR & GFRAA in patients over 70 years has not been determined. Clinical correlation is essential. Serum or plasma urea nitroge n measurement (mass/volume)Ordered By: Dr. Johnson on 08-04-2022 Urea nitrogen [Mass/Vol] 14 mg/dL 7-18 [facility] Thin prep Papanicolaou smear with manual screeningOrdered By: Dr. Johnson on 08-04-2022 Thin prep Papanicolaou smear with manual screening 4 5-15 [facility] XR Chest PA and Lateralon IMPRESSION: No acute radiographic abnormality. Resource Engineer: AMANDA Transcribe Date/Time: Jun 10 2021 9:34A Dictated by : DAVID VARGHESE DO This examination was interpreted and the report reviewed and electronically signed by: DAVID VARGHESE DO on Jun 10 2021 11:02AM [facility] DIVISION OF RADIOLOGY * * *Final [...] soft tissues: Unremarkable. DIVISION OF RADIOLOGY Provider, [facility] * * *Final Report* [...] Unremarkable. IMPRESSION IMPRESSION: No acute radiographic abnormality. Resource Engineer: AMANDA Transcribe Date/Time: Jun 10 2021 9:34A Dictated by : DAVID VARGHESE DO This examination was interpreted and the report reviewed and electronically signed by: DAVID VARGHESE DO on Jun 10 2021 11:02AM EST [facility] Radiology Study observation (narrative) [facility] XR Chest PA and LateralOrder ed By: Ccf Provider on 06-10-2021 [facility] Vital Signs Date Time Vital Sign Value Performing Clinician Facility 12-24-2024 09:25-0400 Body temperature 98.2 [degF] No Primary Care Physician [facility] 12-24-2024 09:25-0400 Diastolic blood pressure 66 mm[Hg] No Primary Care Physician [facility] 12-24-2024 09:25-0400 Heart rate 50 /min No Primary Care Physician [facility] 12-24-2024 09:25-0400 Respiratory rate 16 /min No Primary Care Physician [facility] 12-24-2024 09:25-0400 SaO2% (BldA) [Mass fraction] 99 % No Primary Care Physician [facility] 12-24-2024 09:25-0400 Systolic blood pressure 128 mm[Hg] No Primary Care Physician [facility] 12-24-2024 06:58-0400 Body height 182.88 cm No Primary Care Physician [facility] 12-24-2024 06:58-0400 Body mass index (BMI) [Ratio] 27.1 kg/m2 No Primary Care Physician [facility] 12-24-2024 06:58-0400 Body weight 90.6 kg No Primary Care Physician [facility] 06-07-2024 16:09-0500 Body mass index (BMI) [Ratio] 23.44 kg/m2 Edmond Brunner MD Work Phone: [facility] 06-07-2024 16:09-0500 Body temperature 99.1 [degF] Edmond Burnner MD Work Phone: [facility] 06-07-2024 16:09-0500 Body weight 82.8 kg Edmond Brunner MD Work Phone: [facility] 06-07-2024 16:09-0500 Diastolic blood pressure 82 mm[Hg] Edmond Brunner MD Work Phone: [facility] 06-07-2024 16:09-0500 Heart rate 70 /min Edmond Brunner MD Work Phone: [facility] 06-07-2024 16:09-0500 Respiratory rate 19 /min Edmond Brunner MD Work Phone: [facility] 06-07-2024 16:09-0500 SaO2% (BldA) [Mass fraction] 98 % Edmond Brunner MD Work Phone: [facility] 06-07-2024 16:09-0500 Systolic blood pressure 120 mm[Hg] Edmond Brunner MD Work Phone: [facility] 07-10-2023 16:34-0500 Body height 187.96 cm No Primary Care Physician [facility] 07-10-2023 16:34-0500 Body mass index (BMI) [Ratio] 23.6 kg/m2 No Primary Care Physician [facility] 07-10-2023 16:34-0500 Body temperature 97.6 [degF] No Primary Care Physician [facility] 07-10-2023 16:34-0500 Body weight 83.57 kg No Primary Care Physician [facility] 07-10-2023 16:34-0500 Diastolic blood pressure 90 mm[Hg] No Primary Care Physician [facility] 07-10-2023 16:34-0500 Heart rate 63 /min No Primary Care Physician [facility] 07-10-2023 16:34-0500 Respiratory rate 14 /min No Primary Care Physician [facility] 07-10-2023 16:34-0500 SaO2% (BldA) [Mass fraction] 100 % No Primary Care Physician [facility] 07-10-2023 16:34-0500 Systolic blood pressure 148 mm[Hg] No Primary Care Physician [facility] 02-01-2023 11:37-0400 Body temperature 97.39 [degF] Sherrill Luo APRN.DENTAL SECRETARY Work Phone: [facility] 02-01-2023 11:37-0400 Body weight 81.28 kg Sherrill Luo APRN.DENTAL SECRETARY Work Phone: [facility] 02-01-2023 11:37-0400 Diastolic blood pressure 74 mm[Hg] Sherrill Luo CHURN TENDER.DENTAL SECRETARY Work Phone: [facility] 02-01-2023 11:37-0400 Heart rate 67 /min Sherrill Luo CHURN TENDER.DENTAL SECRETARY Work Phone: [facility] 02-01-2023 11:37-0400 Respiratory rate 18 /min Sherrill Luo CHURN TENDER.DENTAL SECRETARY Work Phone: [facility] 02-01-2023 11:37-0400 SaO2% (BldA) [Mass fraction] 97 % Sherrill Luo CHURN TENDER.DENTAL SECRETARY Work Phone: [facility] 02-01-2023 11:37-0400 Systolic blood pressure 138 mm[Hg] Sherrill Luo CHURN TENDER.DENTAL SECRETARY Work Phone: [facility] 10-14-2022 09:42-0400 Body height 188 cm Estefanía Queden CHURN TENDER.DENTAL SECRETARY Work Phone: [facility] 10-14-2022 09:42-0400 Body temperature 97.7 [degF] Estefanía Queden CHURN TENDER.DENTAL SECRETARY Work Phone: [facility] 10-14-2022 09:42-0400 Body weight 84.37 kg Estefanía Queden CHURN TENDER.DENTAL SECRETARY Work Phone: [facility] 10-14-2022 09:42-0400 Diastolic blood pressure 60 mm[Hg] Estefanía Queden CHURN TENDER.DENTAL SECRETARY Work Phone: [facility] 10-14-2022 09:42-0400 Heart rate 65 /min Estefanía Queden CHURN TENDER.DENTAL SECRETARY Work Phone: [facility] 10-14-2022 09:42-0400 SaO2% (BldA) [Mass fraction] 98 % Estefanía Queden CHURN TENDER.DENTAL SECRETARY Work Phone: [facility] 10-14-2022 09:42-0400 Systolic blood pressure 110 mm[Hg] Estefanía Queden CHURN TENDER.DENTAL SECRETARY Work Phone: [facility] 08-04-2022 22:17-0400 Diastolic blood pressure 68 mm[Hg] No Primary Care Physician [facility] 08-04-2022 22:17-0400 Heart rate 57 /min No Primary Care Physician [facility] 08-04-2022 22:17-0400 Respiratory rate 18 /min No Primary Care Physician [facility] 08-04-2022 22:17-0400 SaO2% (BldA) [Mass fraction] 100 % No Primary Care Physician [facility] 08-04-2022 22:17-0400 Systolic blood pressure 121 mm[Hg] No Primary Care Physician [facility] 08-04-2022 14:30-0400 Body height 187.96 cm No Primary Care Physician [facility] 08-04-2022 14:30-0400 Body mass index (BMI) [Ratio] 21.5 kg/m2 No Primary Care Physician [facility] 08-04-2022 14:30-0400 Body temperature 97 [degF] No Primary Care Physician [facility] 08-04-2022 14:30-0400 Body weight 76.2 kg No Primary Care Physician [facility] Encounters Encounter Date Encounter Type Care Provider Facility Start: 12-28-2024 End: 12-28-2024 ambulatory Estefanía A Queden CHURN TENDER.DENTAL SECRETARY Work Phone: [facility] Start: 12-28-2024 End: 12-28-2024 Follow-up encounter Estefanía A Queden CHURN TENDER.DENTAL SECRETARY Work Phone: [facility] Comment on above: ED Follow-up ([facility] 12[facility]24[facility]24) Start: 12-26-2024 End: 12-26-2024 ambulatory Estefanía A Queden CHURN TENDER.DENTAL SECRETARY Work Phone: [facility] Start: 12-26-2024 End: 12-26-2024 Follow-up encounter Estefanía A Queden CHURN TENDER.DENTAL SECRETARY Work Phone: [facility] Comment on above: ED Follow-up ([facility] ER 12/24/24) Start: 12-24-2024 End: 12-24-2024 Emergency department patient visit No Primary Care Physician -Emergency Department Work Phone: Start: 06-14-2024 End: 06-14-2024 ambulatory Estefaníajohn Franklinden CHURN TENDER.DENTAL SECRETARY Work Phone: [facility] Start: 06-14-2024 End: 06-14-2024 Follow-up encounter Estefanía A Parishden CHURN TENDER.DENTAL SECRETARY Work Phone: [facility] Comment on above: ED Follow-up ([facility] ED 06/08/2024) Start: 06-12-2024 End: 06-12-2024 ambulatory Estefanía A Queden CHURN TENDER.DENTAL SECRETARY Work Phone: [facility] Comment on above: ED OUTREACH (ED OUTR EACH/JUSTICE /06/08/2024) Start: 06-08-2024 End: 06-09-2024 Emergency department patient visit Prabhjot Palumbo Facility:[facility] Start: 06-07-2024 End: 06-07-2024 Patient encounter procedure Edmond Brunner MD Work Phone: [facility] Comment on above: Acute cough (Primary Dx) Start: 06-07-2024 End: 06-07-2024 ambulatory ESTEFANÍA FRANKLINAVINASH Facility:[facility] Start: 06-07-2024 End: 06-07-2024 Subsequent hospital visit by physician Xr [facility] Work Phone: Radiology Comment on above: Acute cough [R05.1] Start: 10-31-2023 ambulatory [place] LPN [facility] Start: 07-12-2023 ambulatory Lyubov Stratton MA [facility] Comment on above: ED OUTREACH (ED OUTR EACH/JUSTICE /07/10/2023) Start: 07-10-2023 End: 07-10-2023 Emergency department patient visit No Primary Care Physician [facility]-Emergency Department Work Phone: Start: 04-28-2023 End: 04-28-2023 Patient encounter procedure No Primary Care Physician [facility] Work Phone: Start: 02-01-2023 End: 02-01-2023 Subsequent hospital visit by physician Florina [facility] Jennifer Work Phone: Radiology Comment on above: Wrist pain, right [M 25.531] Start: 02-01-2023 End: 02-01-2023 Patient encounter procedure Sherrill Luo CHURN TENDER.DENTAL SECRETARY Work Phone: [facility] Comment on above: Wrist pain, right (P rimary Dx); Fall on same level from slipping, tripping or stumbling, initial encounter Start: 10-14-2022 Telephone encounter Estefanía Vo APRN.DENTAL SECRETARY Work Phone: [facility] Comment on above: Patient Update Start: 10-14-2022 End: 10-14-2022 Patient encounter procedure Estefanía Vo APRN.DENTAL SECRETARY Work Phone: [facility] Comment on above: First degree heart b lock (Primary Dx); Incomplete right bundle branch block (RBBB) determined by electrocardiography; Near syncope Start: 08-04-2022 End: 08-04-2022 Emergency department patient visit No [facility] Start: 08-04-2022 End: 08-04-2022 Patient encounter procedure Edmond Brunner MD Work Phone: [place] [facility] Comment on above: Near syncope (Primar y Dx) Start: 07-22-2022 End: 07-22-2022 Patient encounter procedure No Primary Care Physician [facility] Start: 06-10-2021 End: 06-10-2021 Subsequent hospital visit by physician Florina [facility] Jennifer Work Phone: Radiology Comment on above: Cough [R05.9] Procedures Date Procedure Procedure Detail Performing Clinician Start: 12-24-2024 CT of head without contrast No Primary Care Physician Start: 06-07-2024 Radiologic exam ches t 2 views Edmond Brunner MD Work Phone: Start: 07-10-2023 Diagnostic radiograp hy of finger No Primary Care Physician Start: 02-01-2023 Radex wrist complete minimum 3 views Sherrill Luo CHURN TENDER.DENTAL SECRETARY Work Phone: Start: 08-04-2022 Plain chest X-ray No Pr imary Care Physician Start: 08-04-2022 CT of head without contrast No Primary Care Physician Start: 06-10-2021 Radiologic exam ches t 2 views Telma Fregoso CHURN TENDER.DENTAL SECRETARY Work Phone: Plan of Treatment Date Care Activity Detail Author Start: 10-15-2031 Urine microalbumin profile [facility] Start: 05-20-2025 End: 05-20-2025 Patient encounter procedure 05/20/2025 10:40 AM EST Office Visit Cardiology [address] [place], [place] [id number] Jonathan Meade MD [address], [address] [place] [address] Establish care per web request Cardiology Comment on above: Establish care per web request Start: 01-14-2025 Influenza vaccination Influenza Vaccine (#1) [facility] Start: 12-24-2024 [facility] Start: 01-15-2024 Covid-19 Vaccine ( season) Covid-19 Vaccine ( season) [facility] Start: 01-15-2024 Covid-19 Vaccine ( season) Covid-19 Vaccine ( season) [facility] Start: 01-15-2024 Influenza vaccination [facility] Start: 11-28-2023 End: 11-28-2023 Patient encounter procedure 11/28/2023 3:00 PM EDT Office Visit Cardiology [address] [place] [id number] Adriano Santoro MD [address] [place] [address] Establish as a new patient Cardiology Comment on above: Establish as a new patient Start: 10-15-2023 COVID-19 VACCINE (#1) COVID-19 VACCINE (#1) [facility] Comment on above: Postponed from 1995 (Declined at t his time) Start: 07-10-2023 [facility] Start: 05-16-2023 Behavioral Health Screening Behavioral Health Screening [facility] Start: 05-16-2023 Depression Assessment Depression Assessment [facility] Start: 01-14-2023 Covid-19 Vaccine () Covid-19 Vaccine () [facility] Start: 01-14-2023 Influenza vaccination [facility] Start: 05-16-2022 DEPRESSION ASSESSMENT DEPRESSION ASSESSMENT [facility] Start: 01-14-2022 Influenza vaccination INFLUENZA (#1) [facility] Start: 10-20-2016 Urine microalbumin profile DTAP,TDAP,TD (7 - Td or Tdap) [facility] Start: 2013 Anxiety Screening Anxiety Screening [facility] Start: 2013 Depression Screening Depression Screening [facility] Start: 2013 HEPATITIS C SCREENING HEPATITIS C SCREENING [facility] Start: 2013 Hepatitis C screening Hepatitis C Screening [facility] Start: 2013 HIV SCREENING HIV SCREENING [facility] Start: 2013 HIV screening HIV Screening [facility] Start: 11-16-2011 HPV Vaccine (2 - Male 3-dose series) HPV Vaccine (2 - Male 3-dose series) [facility] Start: 1995 COVID-19 VACCINE (#1) COVID-19 VACCINE (#1) [facility] COVID & INFLUENZA A/ B & RSV PCR, ROUTINE COVID & INFLUENZA A/B & RSV PCR, ROUTINE Microbiology Routine Acute cough Ordered: 06/07/2024 [facility] Work Phone: Comment on above: Ordered: 06/07/2024 ECG B/O WO INTERP (M ED OFFICE) ECG B/O WO INTERP (MED OFFICE) ECG Routine Incomplete right bundle branch block (RBBB) determined by electrocardiography Ordered: 10/14/2022 [facility] Work Phone: Comment on above: Ordered: 10/14/2022 End: 10-15-2023 Echocardiography ECHO Cardiology Routine First degree heart block Incomplete right bundle branch block (RBBB) determined by electrocardiography Near syncope 1 Occurrences starting 10/14/2022 until 10/15/2023 [facility] Work Phone: Comment on above: 1 Occurrences starting 10/14/2022 until 10/15/2023 Patient Education [facility] Work Phone: Patient referral [facility] Work Phone: [facility] Immunizations Immunization Date Immunization Notes Care Provider Fa cilijeremiah 10-14-2021 diphtheria, tetanus toxoids and acellular pertussis vaccine, Haemophilus influenzae type b conjugate, and poliovirus vaccine, inactivated ([id number]) Estefanía Vo APRN.CNP Work Phone: [facility] 02-08-2021 tetanus toxoid, redu adeola diphtheria toxoid, and acellular pertussis vaccine, adsorbed No Primary Care Physician [facility] 10-19-2011 human papilloma viru s vaccine, quadrivalent Edmond Brunner MD Work Phone: [facility] 10-19-2011 Meningococcal, MCV4, unspecified conjugate formulation(groups A, C, Y and W-135) Edmond Brunner MD Work Phone: [facility] 04-02-2011 influenza virus vaccine, unspecified formulation Edmond Brunner MD Work Phone: [facility] Work Phone: 10-29-2010 hepatitis A vaccine, unspecified formulation Edmond Brunner MD Work Phone: [facility] Work Phone: 03-26-2008 hepatitis A vaccine, unspecified formulation Edmond Brunner MD Work Phone: [facility] Work Phone: 03-26-2008 influenza virus vaccine, unspecified formulation Edmond Brunner MD Work Phone: [facility] Work Phone: 10-20-2006 Meningococcal, MCV4, unspecified conjugate formulation(groups A, C, Y and W-135) Edmond Brunner MD Work Phone: [facility] Work Phone: 10-20-2006 tetanus toxoid, redu adeola diphtheria toxoid, and acellular pertussis vaccine, adsorbed Edmond Brunner MD Work Phone: [facility] Work Phone: 02-12-2000 diphtheria, tetanus toxoids and acellular pertussis vaccine Edmond Brunner MD Work Phone: [facility] Work Phone: 02-12-2000 measles, mumps and rubella virus vaccine Edmond Brunner MD Work Phone: [facility] Work Phone: 02-12-2000 poliovirus vaccine, inactivated Edmond Brunner MD Work Phone: [facility] Work Phone: 10-30-1996 diphtheria, tetanus toxoids and acellular pertussis vaccine Edmond Brunner MD Work Phone: [facility] Work Phone: 07-14-1996 chicken pox (disease) Edmond Brunner MD Work Phone: [facility] Work Phone: 06-12-1996 haemophilus influenz ae type b vaccine, HbOC conjugate Edmond Brunner MD Work Phone: [facility] Work Phone: 06-12-1996 measles, mumps and rubella virus vaccine Edmond Brunner MD Work Phone: [facility] Work Phone: 06-12-1996 trivalent poliovirus vaccine, live, oral Edmond Brunner MD Work Phone: [facility] Work Phone: 1995 diphtheria, tetanus toxoids and acellular pertussis vaccine Edmond Brunner MD Work Phone: [facility] Work Phone: 1995 haemophilus influenz ae type b vaccine, HbOC conjugate Edmond Brunner MD Work Phone: [facility] Work Phone: 1995 trivalent poliovirus vaccine, live, oral Edmond Brunner MD Work Phone: [facility] Work Phone: 1995 diphtheria, tetanus toxoids and acellular pertussis vaccine Edmond Brunner MD Work Phone: [facility] Work Phone: 1995 haemophilus influenz ae type b vaccine, HbOC conjugate Edmond Brunner MD Work Phone: [facility] Work Phone: 1995 hepatitis B vaccine, pediatric or pediatric/adolescent dosage Edmond Brunner MD Work Phone: [facility] Work Phone: 1995 trivalent poliovirus vaccine, live, oral Edmond Brunner MD Work Phone: [facility] Work Phone: 1995 diphtheria, tetanus toxoids and acellular pertussis vaccine Edmond Brunner MD Work Phone: [facility] Work Phone: 1995 haemophilus influenz ae type b vaccine, HbOC conjugate Edmond Brunner MD Work Phone: [facility] Work Phone: 1995 hepatitis B vaccine, pediatric or pediatric/adolescent dosage Edmond Brunner MD Work Phone: [facility] Work Phone: 1995 hepatitis B vaccine, pediatric or pediatric/adolescent dosage Edmond Brunner MD Work Phone: [facility] Work Phone: Payers Date Payer Category Payer Unknown [id number] 2024 Self-pay [id number] 2023 [employer] BLUE ACCE SS PPO [id number] 2023 Unknown [id number] 2021 Unknown [id number] Unknown DENISSE [id number] Unknown [id number] Unknown [id number] Social History Date Type Detail Facility Start: 09-29-2016 End: 02-01-2023 Tobacco smoking status NHIS Never smoked tobacco [facility] Start: 09-29-2016 End: 02-01-2023 Tobacco use and exposure Smokeless tobacco non-user [facility] Start: 06-10-2021 End: 12-30-2021 Alcohol intake Current non-drinker of alcohol (finding) [facility] Start: 1995 Sex Assigned At Not on file [facility] Start: 08-04-2022 End: 07-10-2023 Tobacco smoking status NHIS Unknown if ever smoked [facility] Start: 1995 Sex Assigned At Male [facility] Start: 10-14-2022 End: 06-07-2024 Alcohol intake Current drinker of alcohol (finding) [facility] Start: 10-14-2022 Alcohol Comment rare Analilia [facility] Start: 10-14-2022 End: 02-01-2023 History of Social function [facility] Work Phone: Start: 10-14-2022 End: 02-01-2023 Tobacco use panel [facility] Work Phone: Start: 04-16-2012 Adult Depression Screening Assessment 0 [facility] Work Phone: Start: 05-11-2021 End: 06-10-2021 Exposure to SARS-CoV-2 (event) Not sure [facility] Functional Status Date Assessment Result Facility 12-17-2014 Are you deaf, or do you have serious difficulty hearing No 12/17/2014 2:50 PM Laurence Caballero LPN No [facility] 12-17-2014 Are you blind, or do you have serious difficulty seeing, even when wearing glasses No 12/17/2014 2:50 PM Laurence Caballero LPN No [facility] 12-17-2014 Do you have serious difficulty walking or climbing stairs No 12/17/2014 2:50 PM Laurence Caballero LPN No [facility] 12-17-2014 Do you have difficul ty dressing or bathing No 12/17/2014 2:50 PM Laurence Caballero LPN No [facility] 12-17-2014 Because of a physica l, mental, or emotional condition, do you have difficulty doing errands alone such as visiting a physician's office or shopping No 12/17/2014 2:50 PM Laurence Caballero LPN No [facility] Mental Status Date Assessment Result Facility 12-24-2024 Cognitive function Level Of Cons ciousness Awake;Alert;Appropriate;Fol lows Commands [facility] Work Phone: 08-04-2022 Cognitive function Level Of Cons ciousness Awake;Alert;Appropriate;Fol lows Commands [facility] Work Phone: 12-17-2014 Because of a physica l, mental, or emotional condition, do you have serious difficulty concentrating, remembering, or making decisions No 12/17/2014 2:50 PM EDT Laurence Greene LPN No [facility] Clinical Notes 06-10-2021 to 12-28-2024 Honey Bay LPN - 12/28/2024 9:37 AM Jeremiah Olvera MA - 12/26/2024 11:12 AM Honey Atkinson LPN - 06/14/2024 11:58 AM RonLyubov [place] - 06/12/2024 2:55 PM EST Note Date & Type Note Facility 12-28-2024 Note HNO ID: [id number] Author: HONEY BAY LPN Service: ? Author Type: LICENSED NURSE Type: Progress Notes Filed: 12/28/2024 09:39 Note Text: ED Follow-Up Note Provider Action / FYI: Call completed by: ERNA Patient seen in ED: Out of Network ED Contact made with Patient: No, left message. Honey Bay LPN December 28, 2024 9:39 AM [facility] 12-28-2024 History of Present illness Narrative ED Follow-Up Note Provider Action / FYI: Call completed by: ERNA Patient seen in ED: Out of Network ED Contact made with Patient: No, left message. 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 Author Type: Perinatal Nurse Type: Progress Notes Filed: 12/26/2024 11:14 Note Text: ED Follow Up: Patient discharged from [facility] ED on 12/24/24. 1. How are you [...] you able to contact the office or ammunition officer provider prior to your ED visit? left message 5. Is there anything else I can do for you today? Left message Jeremiah Alvarado MA [facility] 12-26-2024 History of Present illness Narrative ED Follow Up: Patient discharged from [facility] ED on 12/24/24. 1. How are you [...] you able to contact the office or ammunition officer provider prior to your ED visit? left message 5. Is there anything else I can do for you today? Left message Jeremiah Alvarado MA documented in this encounter [facility] 12-26-2024 Note Patient Outreach (AG FAMPLE) RUDY BRYANT II ([id number]) 1995 M Date Time Provider Department 12/26/24 ESTEFANÍA VO During your visit today, we recorded the following information about you: Jeremiah Alvarado MA 12/26/2024 11:14 AM Signed ED Follow Up: Patient discharged from [facility] ED on 12/24/24. 1. How are you [...] you able to contact the office or ammunition officer provider prior to your ED visit? left message 5. Is there anything else I can do for you today? 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] 04/18/2008 CONGENITAL PES PLANUS [Q66.50] 04/18/2008 First Degree Heart Block [I44.0] 12/29/2009 Acne [L70.9] 10/19/2011 Vasovagal syncope [R55] 09/29/2016 Incomplete right bundle branch block (RBBB) det*10/14/2022 Dizziness and giddiness [R42] 08/10/2022 Pre-syncope [R55] 10/14/2022 Headache, unspecified [R51.9] 05/20/2023 Diagnosed: 05/20/2023 Encounter Status:Closed by JEREMIAH ALVARADO on 12/26/24 [facility] 12-24-2024 Discharge summary [facility] 12-24-2024 Radiology Diagnostic study note [facility] Imaging Services [address] [place] [address] Brain/Head without Contrast MR#: [id number] Acct: [id number] Name: RUDY BRYANT II Rep #: [id number] : 1995 M 29 From: Bharathi Avina MD PCP: Care Physician,No Primary Status: REG ER Study:Brain/Head without Contrast Date of Exa m: 12/24/24 Exam# [id number] Ordering Dr: Jesica Sloan MD EXAM: NONCONTRAST [...] Sloan MD; No Primary Care Physician ~ Resource Engineer: Signed [facility] 06-14-2024 Note HNO ID: [id number] Author: HONEY BAY LPN Service: ? Author Type: LICENSED NURSE Type: Progress Notes Filed: 06/14/2024 12:00 Note Text: ED Follow-Up Note Provider Action / FYI: Call completed by: ERNA Patient seen in ED: Out of Network ED Contact made with Patient: No, left message. Honey Bay LPN June 14, 2024 12:00 PM [facility] 06-14-2024 History of Present illness Narrative ED Follow-Up Note Provider Action / FYI: Call completed by: ERNA Patient seen in ED: Out of Network ED Contact made with Patient: No, left message. Honey Bay LPN June 14, 2024 12:00 PM documented in this encounter [facility] 06-14-2024 Note Patient Outreach (AG FAMPLE) RUDY BRYANT II ([id number]) 1995 M Date Time Provider Department 06/14/24 [...] Encounter Status:Closed by HONEY BAY on 06/14/24 [facility] 06-12-2024 Note HNO ID: [id number] Author: LYUBOV STRATTON MA Service: ? Author Type: Perinatal Nurse Type: Progress Notes Filed: 06/12/2024 14:56 Note Text: ED Follow Up: Patient discharged from [facility] ED on 06/08/2024. 1. How are you [...] you able to contact the office or ammunition officer provider prior to your ED visit? Not applicable 5. Is there anything else I can do for you today? Not applicable Left message on patients vm to contact office if he needs anything. Lyubov Stratton MA [facility] 06-12-2024 History of Present illness Narrative ED Follow Up: Patient discharged from [facility] ED on 06/08/2024. 1. How are you [...] you able to contact the office or ammunition officer provider prior to your ED visit? Not applicable 5. Is there anything else I can do for you today? Not applicable Left message on patients vm to contact office if he needs anything. Lyubov Stratton MA documented in this encounter [facility] 06-12-2024 Note Patient Outreach (AG FAMPLE) RUDY BRYANT II ([id number]) 1995 M Date Time Provider Department 06/12/24 ESTEFANÍA VO During your visit today, we recorded the following information about you: Lyubov Stratton MA 06/12/2024 2:56 PM Signed ED Follow Up: Patient discharged from [facility] ED on 06/08/2024. 1. How are you [...] you able to contact the office or ammunition officer provider prior to your ED visit? Not [...] Visit: ED OUTREACH [Other] Cmt: ED OUTREACH JUSTICE 06/08/2024 Prescriptions as of 06/12/2024 - benzonatate [...] Encounter Status:Closed by LYUBOV STRATTON on 06/12/24 [facility] 06-07-2024 History of Present illness [...] PATIENT PRESENTS WITH AN IMPLANTABLE OR ATTACHED NATIONAL ACCOUNT REPRESENTATIVE: No RADIOLOGY DEPARTMENT: General X-ray: Exam(s) Completed: Chest X-Ray PERIPHERAL IV DATA: Not applicable SIGNED BY: RT Carole(Lottie) June 07, 2024 4:47 PM documented in this encounter [facility] 06-07-2024 Note HNO ID: [id number] Author: DINO MENDOZA RT(Lottie) Service: ? Author Type: Product Transfer Pumper Type: Progress Notes Filed: 06/07/2024 16:52 Note [...] PATIENT PRESENTS WITH AN IMPLANTABLE OR ATTACHED NATIONAL ACCOUNT REPRESENTATIVE: No RADIOLOGY DEPARTMENT: General X-ray: Exam(s) Completed: Chest X-Ray PERIPHERAL IV DATA: Not applicable SIGNED BY: RT Carole(R) June 07, 2024 4:47 PM [facility] 06-07-2024 Note HNO ID: [id number] Author: EDMOND BRUNNER MD Service: ? Author [...] or late onset fever. Edmond Brunner MD [facility] 06-07-2024 History of Present illness [...] Edmond Brunner MD documented in this encounter [facility] 10-31-2023 History of Present illness Narrative ED Follow Up: Patient discharged from [facility] ED on 10/28/2023. 1. How are [...] you able to contact the office or ammunition officer provider prior to your ED visit? No 5. Is there anything else I can do for you today? No ED Follow Up: Patient discharged from [facility] ED on 10/28/2023. 1. How are you [...] you able to contact the office or ammunition officer provider prior to your ED visit? Left message for pt to call office back. 5. Is there anything else I can do for you today? Left message for pt to call office back. documented in this encounter [facility] 07-12-2023 History of Present illness Narrative ED Follow Up: Patient discharged from [facility] ED on 07/10/2023. 1. How are you [...] you able to contact the office or ammunition officer provider prior to your ED visit? Not applicable 5. Is there anything else I can do for you today? Not applicable Called lm on pt. Vm to contact office if he needs anything or would like to make a follow up apt. Lyubov Stratton MA documented in this encounter [facility] 07-10-2023 Discharge summary Note Date/Time July 10, 2023 4:47pm [facility] Medical Records Department [address] [place] [address] Emergency Department Summary 07/10/23 MR#: [id number] Acct: [id number] Name: RUDY BRYANT II Rep #:[id number] : 1995 28 From: Pio Erickson MD [...] has been icing the area as well. [facility] Medical History Heart block Irregular heart beat [...] to 2 different hand surgeons in the [place] area for follow-up within a week. I offered to write him for stronger pain medications but he declined and would like to take lwlj-omu-qvqmcuv analgesics. He will continue ice and elevation at home. I feel he can be discharged to follow-up. Return instructions to the emergency department were reviewed. Disposition is discharged home in stable condition. Management Discussion w/another healthcare provider: Magnetic Tape Composer Operator (Dr. Perez, Orthopaedics) Discharge Plan Triage Chief [...] in approximately 1 week. You can take idrr-doi-bqreqma medications as needed for pain. Disposition Disposition: Home, Self Care What to do if you have Problems For any increased pain, shortness of breath, bleeding, nausea or vomiting, chestpain, or any unexpected problems, contact your Primary Care Provider. Call [facility] ([phone]) or report to the closest Emergency Room. Call 911 if necessary. 07/10/23 1800 <Electronically signed by Pio Erickson MD> Cosigner Signature (if applicable): CC: No Primary Care Physician ~ Signed [facility] Work Phone: 1(905) 292-919309-19-2023 History of Present illness Narrative* Sherrill Luo APRN.DENTAL SECRETARY - 02/01/2023 1:46 PM EDT This note [...] history is provided by the patient. No forming press operator was used. Wrist/forearm Injury The incident occurred [...] No head injury No LOC Sherrill Luo APRN.DENTAL SECRETARY [facility] History of Present illness Narrative* Kourtney [...] 01, 2023 12:01 PM [facility] Miscellaneous Notes* Telephone Encounter - Lyubov Stratton MA - 10/14/2022 3:56 PM EDT Spoke to [facility] She will fax over medical records for ER . Lyubov Stratton MA [facility] Instructions* Patient Instructions* Estefanía Vo APRN.CNP - 10/14/2022 10:25 AM EDT [facility] Cardiac testing, Sleep services, and pulmonary testing, please jahaira [phone] [facility] History of Present illness Narrative* Estefanía Vo APRN.CNP - 10/14/2022 9:51 AM EDT Images from the original note were not included. [facility] Estefanía Vo APRN-DENTAL SECRETARY [address] [place] [address] Dept Dept. Visit Date: October 14, 2022 Mr.Bradley Bernard Bryant II Date of : 1995 MRN/E #: [id number] Chief Complaint: Patient presents with: Establish Care: Was dx with heart murmer. Needs note to clear him to work. Last time seen financial advocate was about 2 years ago. Has apt .with financial advocate in March (Cant remember name) last PCP was in [place] about 3 years ago. Said it is [facility] doc. History of Present Illness Rudy Bryant II is a 27 year old male presents today as a new patient and to discuss clearance for work from a cardiac standpoint. He states he has had a heart murmur since he was little. He was following with a financial advocate for vasovagal syncope, but hasn't seen anyone in 5 years (followed with Dr. Mi). He is scheduled with a financial advocate but can't be seen until March. He hasn't had a PCP in about 3 years. Per chart review, he has a history of a first degree heart block but there is no documentation about a heart murmur. He was in [place] ER in July of this year for complaints of dizziness and near syncope. He states he ended up being dehydrated and once he received fluids he felt better. He does report that his mother at the age of 51 from a possible stroke? His father has a history of heart disease and had a [place] at the age of 50 and two TIAs. He states none of his siblings have any cardiac problems. The history is provided by the patient. No forming press operator was used. PAST MEDICAL HISTORY Diagnosis Date [...] 14, 2022 9:51 AM [facility] History of Present illness Narrative* Edmond Brunner MD - 08/04/2022 2:09 PM EDT [facility] Triage Note: Patient presents to the [facility] with complaint of feeling dizzy/light- headed and almost passing out at work today. He had a bad headache yesterday. Denies chest pain or shortness of breath. No recent injury. Patient advised further evaluation in the emergency room. He will go to [facility]. [facility] History of Present illness Narrative* Kourtney [...] 10, 2021 9:25 AM documented in this encounterFort [facility] HospitalDis[facility] summary Author Rudy Sloan [facility] Note Date/Time December 24, 2024 9: 10am [facility] Medical Records Department [address] [place] [address] Emergency Department Summary 12/24/24 MR#: [id number] Acct: [id number] Name: RUDY BRYANT II Rep #:[id number] : 1995 29 From: Rudy Sloan MD [...] head injury. Denies any recent illness or cguv-pij-qsovhun medications other than Tylenol for the headache. [...] cerebral aneurysm that he is aware of. [facility] Medical History Irregular heart beat Heart block Home Medications ?Medication ?Instructions ?Recorded ?Last Taken ?Type NK 08/11/25 Unknown History Allergy/AdvReac Type Severity Reaction Status [...] no sensory deficits noted Neuro Narrative: Normal jenhjq-jw-ysoz in addition bilaterally. 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 Normal response to questions. Sensorium / Orientation: [...] IMPRESSION: No acute intracranial pathology. Reading Location: [facility] Rhythm Strip Rhythm Strip: Sinus Rhythm Rate: [...] Doctor,Your [Non-Staff] - 1-2 Weeks Print Language: Sammarinese Disposition Disposition: Home, Self Care What to do if you have Problems For any increased pain, shortness of breath, bleeding, nausea or vomiting, chestpain, or any unexpected problems, contact your Primary Care Provider. Call [facility] ([phone]) or report to the closest Emergency Room. Call 911 if necessary. 12/24/24 0910 <Electronically signed by Rudy Sloan MD> Brandenigner Signature (if applicable): CC: No Primary Care Physician ~ Signed [facility] Work Phone: Evaluation note* Diagnosis Near syncope- Primary Syncope and collapse documented in this encounter [facility] noteNo assessment information availableWSt. Rita's Hospital Work Phone: Evaluation note* Diagnosis First degree heart block- Primary First degree atrioventricular block Incomplete right bundle branch block (RBBB) determined by electrocardiography Near syncope Syncope and collapse documented in this encounter [facility] note* Diagnosis Wrist pain, right- Primary Pain in joint, forearm Fall on same level from slipping, tripping or stumbling, initial encounter documented in this encounter [facility] note* Diagnosis Wrist pain, right Pain in joint, forearm documented in this encounter [facility] note* Diagnosis Cough documented in this encounter [facility] note* Diagnosis Acute cough- Primary Acute cough documented in this encounter [facility] note* Diagnosis [facility] Additional Instructions Follow-up with a hand surgeon in approximately 1 week. You can take itlm-dra-gwwisbt medications as needed for pain.[facility] Work Phone: Reason for referral (narrative)* Outpatient Procedure (Routine) - Pending Review Specialty Diagnoses / Procedures Referred By Contac t Referred To [facility] Diagnoses First degree heart block Incomplete right bundle branch block (RBBB) determined by electrocardiography Near syncope Procedures ECHO ECHO TTHRC R-T 2D W/WOM-MODE COMPL SPEC&COLR D Estefanía Vo, CHURN TENDER.DENTAL SECRETARY [address] [place] [address] [facility] [address] [place] [address] Referral ID Status Reason Start Date Expiration Date Visits Requested Visits Authorized [id number] Pending Review Auto-Generat ed Referral 10/14/2022 10/14/2023 1 1 [facility] for referral (narrative)* Diagnostic Procedure Only (Urgent) - Pending Review Specialty Diagnoses / Procedures Referred By Contac t Referred To Contact XR IMAGING Diagnoses Wrist pain, right Procedures XR WRIST GENERAL 3V PA/LAT/OBL RIGHT RADEX WRIST COMPLETE MINIMUM 3 VIEWS Sherrill Luo APRN.DENTAL SECRETARY [address] [place] [address] [place] [address] Referral ID Status Reason Start Date Expiration Date Visits Requested Visits Authorized [id number] Pending Review Auto-Generat ed Referral 02/01/2023 03/02/2024 1 1 [facility] for referral (narrative)* Diagnostic Procedure Only (Urgent) - Closed Specialty Diagnoses / Procedures Referred By Contac t Referred To Contact XR IMAGING Diagnoses Wrist pain, right Procedures XR WRIST GENERAL 3V PA/LAT/OBL RIGHT RADEX WRIST COMPLETE MINIMUM 3 VIEWS Sherrill Luo APRN.DENTAL SECRETARY [address] [place] [address] [place] [address] Referral ID Status Reason Start Date Expiration Date V isits Requested Visits Authorized [id number] Closed Auto-Generate d Referral 02/01/2023 03/02/2024 1 1 [facility] for referral (narrative)No reason for referral information availableWSt. Rita's Hospital Work Phone: Reason for visit Narrative* Diagnostic Procedure Only (Urgent) - Closed Specialty Diagnoses / Procedures Referred By Contac t Referred To Contact XR IMAGING Diagnoses Wrist pain, right Procedures XR WRIST GENERAL 3V PA/LAT/OBL RIGHT RADEX WRIST COMPLETE MINIMUM 3 VIEWS Sherrill Luo APRN.DENTAL SECRETARY [address] [place] [address] [place] [address] Referral ID Status Reason Start Date Expiration Date V isits Requested Visits Authorized [id number] Closed Auto-Generate d Referral 02/01/2023 03/02/2024 1 1 [facility] Chief Complaint and Reason for Visit Chief Complaint PE DRUG SCREEN/WILLB URT DIZZINESS Chief Complaint PE DRUG SCREEN/ GOJO RIGHT PINKY Chief Complaint Admit Date GENERAL ILLNESS December 24, 2024 6: 57am Advance Directives No Advanced Directives Records Found Advance Directive Response Recorded Date/ Time Living Will No August 04, 2022 4:30pm Power of Armature Rewinder No August 04 4:30pm Advance Directive Response Recorded Date/ Time Living Will No July 10, 5:48pm Power of Armature Rewinder No July 10, 2023 5:48pm Advance Directive Response Recorded Date/ Time Do you have a Healthcare Power of Armature Rewinder? No December 24, 2024 6:58am Summary Purpose [...] or prosecute any alcohol or drug abuse patient.[facility] HospitalIn the event this information is protected by the Federal Confidentiality of Alcohol and Drug Abuse Patient Records regulations: The Federal rules restrict any use of the information to criminally investigate or prosecute any alcohol or drug abuse patient.[facility] HospitalIn the event this information is protected by the Federal Confidentiality of Alcohol and Drug Abuse Patient Records regulations: The Federal rules restrict any use of the information to criminally investigate or prosecute any alcohol or drug abuse patient.[facility] HospitalIn the event this information is protected by the Federal Confidentiality of Alcohol and Drug Abuse Patient Records regulations: The Federal rules restrict any use of the information to criminally investigate or prosecute any alcohol or drug abuse patient.[facility] HospitalIn the event this information is protected by the Federal Confidentiality of Alcohol and Drug Abuse Patient Records regulations: The Federal rules restrict any use of the information to criminally investigate or prosecute any alcohol or drug abuse patient.[facility] HospitalIn the event this information is protected by the Federal Confidentiality of Alcohol and Drug Abuse Patient Records regulations: The Federal rules restrict any use of the information to criminally investigate or prosecute any alcohol or drug abuse patient.[facility] HospitalIn the event this information is protected by the Federal Confidentiality of Alcohol and Drug Abuse Patient Records regulations: The Federal rules restrict any use of the information to criminally investigate or prosecute any alcohol or drug abuse patient.[facility] HospitalIn the event this information is protected by the Federal Confidentiality of Alcohol and Drug Abuse Patient Records regulations: The Federal rules restrict any use of the information to criminally investigate or prosecute any alcohol or drug abuse patient.[facility] HospitalIn the event this information is protected by the Federal Confidentiality of Alcohol and Drug Abuse Patient Records regulations: The Federal rules restrict any use of the information to criminally investigate or prosecute any alcohol or drug abuse patient.[facility] HospitalIn the event this information is protected by the Federal Confidentiality of Alcohol and Drug Abuse Patient Records regulations: The Federal rules restrict any use of the information to criminally investigate or prosecute any alcohol or drug abuse patient.[facility] HospitalIn the event this information is protected by the Federal Confidentiality of Alcohol and Drug Abuse Patient Records regulations: The Federal rules restrict any use of the information to criminally investigate or prosecute any alcohol or drug abuse patient.[facility] HospitalIn the event this information is protected by the Federal Confidentiality of Alcohol and Drug Abuse Patient Records regulations: The Federal rules restrict any use of the information to criminally investigate or prosecute any alcohol or drug abuse patient.[facility] HospitalIn the event this information is protected by the Federal Confidentiality of Alcohol and Drug Abuse Patient Records regulations: The Federal rules restrict any use of the information to criminally investigate or prosecute any alcohol or drug abuse patient.[facility] HospitalIn the event this information is protected by the Federal Confidentiality of Alcohol and Drug Abuse Patient Records regulations: The Federal rules restrict any use of the information to criminally investigate or prosecute any alcohol or drug abuse patient.[facility] Care Teams (unrecognized sec tion and content) [...] Care Provider Active Dr. Gabriel Johnson , DO Emergency Provider Active Load Out Supervisor Relationship Specialty Start Date End Date Estefanía Vo, CHURN TENDER.DENTAL SECRETARY [address], [place] [phone] PCP - General Family Medicine 10/14/22 Load Out Supervisor Relationship Specialty Start Date End Date Estefanía Vo, CHURN TENDER.DENTAL SECRETARY [address], [place] [id number] PCP - General Family Medicine 10/14/22 Load Out Supervisor Relationship Specialty Start Date End Date Estefanía Vo, CHURN TENDER.DENTAL SECRETARY [address] [facility] [place] [id number] PCP - General Family Medicine 10/14/22 Team Status: Inactive Member Role Status Dates No Primary Care Physician Primary Care Provider, Refer ring Provider Active Rommel ALTMAN, PA Attending Provider Active Team Status: Inactive Member Role Status Dates No Primary Care Physician Primary Care Provider Active Pio Erickson MD Emergency Provider Active Load Out Supervisor Relationship Specialty Start Date End Date Estefanía Vo, CHURN TENDER.DENTAL SECRETARY [address] [facility] [place] [phone] PCP - General Family Medicine 10/14/22 Load Out Supervisor Relationship Specialty Start Date End Date Estefanía Vo, CHURN TENDER.DENTAL SECRETARY [address] [facility] [place] [phone] PCP - General Family Medicine 10/14/22 Load Out Supervisor Relationship Specialty Start Date End Date Estefanía Vo, CHURN TENDER.DENTAL SECRETARY [address] [facility] [place] [id number] PCP - General Family Medicine 10/14/22 Load Out Supervisor Relationship Specialty Start Date End Date Estefanía Vo, CHURN TENDER.DENTAL SECRETARY [address] [facility] [place] [id number] PCP - General Family Medicine 10/14/22 Load Out Supervisor Relationship Specialty Start Date End Date Estefanía Vo, CHURN TENDER.DENTAL SECRETARY [address] [facility] [place] [phone] PCP - General Family Medicine 10/14/22 Team Status: Active Member Role/Relationship Status Dates No Primary Care Physician Primary Care Provider Active Team Status: Inactive Member Role/Relationship Status Dates No Primary Care Physician Primary Care Provider Active Start: December 24, 2024 End: December 24, 2024 Dr. Rudy Sloan MD Emergency Provider Active Start: December 24, 2024 End: December 24, 2024 Load Out Supervisor Relationship Specialty Start Date End Date Estefanía Vo, CHURN TENDER.DENTAL SECRETARY [address], [place] [phone] PCP - General Family Medicine 10/14/22 Goals (unrecognized section and content) Goals may be documented in a n alternate sectionGoals may be documented in an alternate sectionGoals may be documented in an alternate section Reason for Visit (unrecogniz ed section and content) Reason Comments Establish Care Was dx with heart mu rmer. Needs note to clear him to work. Last time seen financial advocate was about 2 years ago. Has apt .with financial advocate in March (Cant remember name) last PCP was in [place] about 3 years ago. Said it is [facility] doc. Specialty Diagnoses / Procedures Referred By Anuel t Referred To Contact [facility]ILY [facility]ICINE Diagnoses Financial Assistance - Establish Care-work clearance for heart murmur Procedures Financial Assistance - New Patient Self [place] [id number] [place] [address] Referral ID Status Reason Start Date Expiration Date Visits Requested Visits Authorized [id number] Authorized Financial Clearance Required - Self Pay [...] Reason Onset Date Comments ED Follow-up 06/08/2024 [place] 2024 Reason Onset Date Comments ED Follow-up 12/26/2024 [facility] 12/24/24 Reason Onset Date Comments ED Follow-up 12/24/2024 [place] [facility] 2024 (unrecognized sect ion and content) No Status Records FoundNo Status Records FoundNo Status Records Found INFORMATION SOURCE (unrecogn ized section and content) DATE CREATED AUTHOR 06/09/2024 [facility] DATE CREATED AUTHOR AUTHOR'S ORGANIZ ATION 12/30/2024 [facility] DATE CREATED AUTHOR AUTHOR'S ORGANIZ ATION 12/30/2024 [facility] FOR RECORDS PERTAINING TO PATIENTS WHO [...] BE BASED ON THE PRIMARY CLINICAL RECORDS. [facility]. provides no warranty or guarantee of the accuracy or completeness of information in this document.
[2025-05-04 20:34] VITALS: BP 135/78; PULSE 77; RESP 16; TEMP 36.6; O2SAT 100
== END 2025-05-04 20:37 | disposition home or self-care (01) ==
PROVIDERS: Emergency Provider Emergency Medicine; PCP Nurse Practitioner Family; Visit Provider Emergency Medicine
DX: S83.92XA Sprain of unspecified site of left knee, initial encounter (principal); R03.0 Elevated blood-pressure reading, without diagnosis of hypertension; X58.XXXA Exposure to other specified factors, initial encounter; Y93.66 Activity, soccer
CPT/HCPCS: 73564; 99283